=== PATIENT | male | born 1950 ===

== ENCOUNTER 2017-04-23 16:34 | Inpatient (IN) | payer MEDICARE ==
[~2017-04-23] VITALS: Ht 182.9 cm; Wt 66.0 kg
[~2017-04-23 16:34] MED LIST: ACET325T9 PO; ARIP30TA4 PO; ARIP5TAB13 PO; CHOL500016 PO; DIVA125C PO; DONE10TA61 PO; DULO60CA6 PO; LORA-434 PO; LORA10TA3 PO; MAG355OR12 PO; MAGN2400 PO; MEMA10TA PO; QUET100T4 PO; QUET50TA5 PO; SERT100T PO
[2017-04-23] MEDS ORDERED: MAGNESIUM HYDROXIDE 2,400 MG/30 ML ORAL.SUSP. PO PRN (17:15)
[2017-04-23] MEDS ORDERED: MAG HYDROX/AL HYDROX/SIMETH 30 ML ORAL.SUSP PO PRN ×2 (17:15→20:30)
[2017-04-23] MEDS ORDERED: METHYL SALICYLATE/MENTHOL TOPICAL OINTMENT 29GM TUBE. TP PRN (17:15)
[2017-04-23 17:49] VITALS: BP 115/69
[2017-04-23] MEDS ORDERED: QUEtiapine 25 MG TABLET. PO PRN (18:00)
[2017-04-23] MEDS ORDERED: LORazepam 0.5 MG TABLET PO PRN (18:00)
[2017-04-23] MEDS ORDERED: ASPI-630 PO (18:23)
[2017-04-23] MEDS ORDERED: QUET25TA5 PO (18:23)
[2017-04-23] MEDS ORDERED: BISA10SU2 RC (18:23)
[2017-04-23] MEDS ORDERED: TRIA10.8 NS (18:23)
[2017-04-23] MEDS ORDERED: LORA0.5T TP (18:23)
[2017-04-23] MEDS ORDERED: KETO10DR6 EACHEYE (18:23)
[2017-04-23] MEDS ORDERED: DIPH25CA58 PO (18:23)
[2017-04-23] MEDS ORDERED: CARB15DR98 OD (18:23)
--- NOTE | 2017-04-23 19:52 | PDOC ---
Exam Mj Demential Exam: Mj Note: Please also refer to the separate dictated note~for this date of service dictated separately.~Patient seen individually. Discussed the patient with Nursing staff reviewed the chart.~Reviewed interim history and current functioning. Reviewed vital signs,~Labs/ Radiology~and current medications noted below. Continue current treatment with the changes noted in the dictated addendum note Assessment: Vital Signs: Vital Signs Date Time Temp Pulse Resp B/P (MAP) Pulse Ox O2 Delivery O2 Flow Rate FiO2 04/23/17 17:49 98.0 73 16 115/69 (84) 100 Room Air Current Medications: Meds: Current Medications Acetaminophen (Tylenol) 650 mg PRN Q6HRS PRN PO PAIN / TEMP; Start 04/23/17 at 17:15 Multi-Ingredient Ointment (Analgesic [place]) 1 ana maría PRN QID PRN TP MUSCLE PAIN; Start 04/23/17 at 17:15 Al Hydroxide/Mg Hydroxide (Mylanta Plus Xs) 15 ml PRN AFTMEALHC PRN PO DYSPEPSIA; Start 04/23/17 at 17:15 Magnesium Hydroxide (Milk Of Magnesia) 2,400 mg PRN QHS PRN PO CONSTIPATION; Start 04/23/17 at 17:15 Aripiprazole (Abilify) 10 mg DAILY PO ; Start 04/24/17 at 09:00 Divalproex Sodium (Depakote Sprinkles) 500 mg TID PO ; Start 04/23/17 at 21:00 Donepezil HCl (Aricept) 10 mg DAILY PO ; Start 04/24/17 at 09:00 Duloxetine HCl (Cymbalta) 60 mg DAILY PO ; Start 04/24/17 at 09:00 Lorazepam (Ativan) 0.5 mg PRN Q6HRS PRN TP ANXIETY / AGITATION; Start 04/25/17 at 12:00 Lorazepam (Ativan) 0.5 mg PRN BID PRN PO ANXIETY / AGITATION; Start 04/23/17 at 18:00 Memantine (Namenda) 10 mg BID PO ; Start 04/23/17 at 21:00 Quetiapine Fumarate (SEROquel) 25 mg PRN DAILY PRN PO PSYCHOSIS; Start 04/23/17 at 18:00 Active Scripts Active Reported Nasacort (Triamcinolone Acetonide) 10.8 Ml [place] 2 Sprays NS DAILY Alaway (Ketotifen Fumarate) 10 Ml Drops 1 Drop EACHEYE BID Bisacodyl 10 Mg Supp.rect 10 Mg RC PRN DAILY PRN Benadryl (Diphenhydramine Hcl) 25 Mg Capsule 12.5 Mg PO PRN BID PRN Refresh Tears (Carboxymethylcellulose Sodium) 15 Ml Drops 1 Drop OD PRN QID PRN Lorazepam 0.5 Mg Tablet 0.5 Mg TP PRN Q6HRS PRN Seroquel (Quetiapine Fumarate) 25 Mg Tablet 25 Mg PO PRN DAILY PRN Aspirin 81 Mg Tab.chew 81 Mg PO DAILY Maalox Maximum Strength Susp (Mag Hydrox/Al Hydrox/Simeth) 355 Ml Oral.susp 15 Ml PO PRN AFTMEALHC PRN Milk Of Magnesia (Magnesium Hydroxide) 2,400 Mg/10 Ml Oral.susp 2,400 Mg PO PRN QHS PRN Tylenol (Acetaminophen) 325 Mg Tablet 650 Mg PO PRN Q6HRS PRN Cymbalta (Duloxetine Hcl) 60 Mg Capsule.dr 60 Mg PO DAILY DO NOT CRUSH OR CHEW Vitamin D3 (Cholecalciferol (Vitamin D3)) 5,000 Unit Tablet 4,000 Unit PO DAILY Abilify (Aripiprazole) 5 Mg Tablet 10 Mg PO DAILY Loratadine 10 Mg Tablet 10 Mg PO DAILY Ativan (Lorazepam) 1 Mg Tablet 0.5 Mg PO BID PRN Namenda (Memantine Hcl) 10 Mg Tablet 10 Mg PO BID Aricept (Donepezil Hcl) 10 Mg Tablet 10 Mg PO DAILY Depakote Sprinkle (Divalproex Sodium) 125 Mg Cap.sprink 500 Mg PO TID GIVE WITH FOOD. Diagnosis: Problems: (1) Anxiety disorder (2) Impulse control disorder (3) Dementia, vascular, with depression (4) Dementia, vascular, with delusions (5) Dementia in Alzheimer's disease with depression (6) Dementia in Alzheimer's disease with delusions ISACC WEAVER MD Apr 23, 2017 19:52
[2017-04-23] MEDS: DIVALPROEX 125 MG CAP.SPRINK PO SCH (20:21)
[2017-04-23] MEDS: MEMANTINE 10 MG TABLET. PO SCH (20:22)
[2017-04-23] MEDS ORDERED: BISACODYL 10 MG SUPP.RECT RC PRN (20:30)
[2017-04-23] MEDS ORDERED: NON FORMULARY ITEM (Magnesium Hydroxide (Milk Of Magnesia) 2,400 MG) PO PRN (20:30)
[2017-04-23] MEDS ORDERED: ACETAMINOPHEN 325 MG TABLET PO PRN (20:30)
[2017-04-23] MEDS ORDERED: POLYVINYL ALCOHOL/POVIDONE/PF OPHTH SOLUTION DROPERETTE. OD PRN (20:45)
[2017-04-23] MEDS: KETOTIFEN FUMARATE 0.025% OPHT SOLUTION BOTTLE. OU SCH (21:00)
--- NOTE | 2017-04-24 00:34 | HP ---
ADMIT DATE: 04/23/2017 PSYCHIATRIC ADMISSION HISTORY/EVALUATION This note covers elements not covered in my initial note of 04/23/2017. The patient was seen individually in the evening of 04/23/2017 for this evaluation. Discussed with nursing staff, reviewed the chart, reviewed current past records. I have also talked to the Emergency Room physician at [facility] after the patient was referred to us for inpatient psychiatric stabilization from the Emergency Room at [facility]. He talked to the nursing staff several times earlier in the day to coordinate the referral from the Emergency Room. IDENTIFYING DATA: The patient is a 67-year-old male with fairly significant and advanced dementia, Alzheimer's, vascular with delusion, depression, behavioral disturbance. He has been residing at the [facility] getting increasingly aggressive, charging at people, disruptive, psychotic. He has failed outpatient psychiatric interventions, was sent to the [facility] Emergency Room and then referred to us for psychiatric stabilization. HISTORY OF PRESENT ILLNESS: The patient has a history of dementia, Alzheimer's vascular type. He has been residing at the [facility], more recently getting increasingly psychotic, agitated, aggressive, disruptive, charging at people. He has had sleep and appetite changes. No clear suicidal or homicidal ideation. No clear history of bipolar disorder. PAST PSYCHIATRIC HISTORY: As above. MEDICAL HISTORY: Hypovitaminosis D. CURRENT PSYCHOTROPICS: Seroquel 25 mg p.o. p.r.n. psychosis, Namenda 10 mg twice a day, Ativan topical p.r.n. and oral 0.5 mg b.i.d. p.r.n., Cymbalta 60 mg a day, Aricept 10 mg a day, Depakote Sprinkles 500 mg 3 times a day, Abilify 10 mg a day. CODE STATUS: DNR. DRUG ALLERGIES: Negative. FAMILY HISTORY: Noncontributory. SOCIAL HISTORY: No history of alcohol, drug abuse, physical, sexual or elder abuse history is noted. He is not known to be a perpetrator. MENTAL STATUS EXAMINATION: The patient was seen individually in the evening of 04/23/2017. He is oriented to himself, not very interactive at all, having to be fed by the nursing staff and still unable to follow through appropriately, not verbal at all. Insight, judgment, recent and remote memory, attention, concentration, fund of knowledge poor, consistent with his diagnosis. LABORATORY DATA: Reviewed. IMPRESSION: Major neurocognitive disorder, Alzheimer, vascular with depression, delusion, behavioral disturbance; anxiety disorder, unspecified; impulse control disorder, unspecified. Rest diagnoses unchanged from admission as noted above. PLAN: Admit to the geropsychiatry unit at [facility]. I will see the patient daily individually from a psychiatric standpoint. Medical followup per Dr. Stephenson/Dr. Hayes. Continue the patient on his current psychotropics. Consider reducing Abilify, checking a valproic acid level will adjust to reach a therapeutic level. We will make further adjustments after baseline assessment. MAN Mary WEAVER MD DR: MARIAM/piter JOB#: [id number] / [id number]
--- NOTE | 2017-04-24 01:55 | ACF ---
Admission Criteria Forms PSYCHIATRIC DISORDERS Clinical Indications for Inpatient Care (Place 'X' for any and all applicable criteria): Ongoing inpatient care may be needed for 1 or more of the following(1)(2)(3)(4)( 6)(7)(8): [ ]I. Danger to self or others not manageable at lower level of care. [ ]II. Grave disability (eg, inability to perform self care necessary at lower level of care) [ ]III. Agitation or inappropriate behavior interfering with care for primary condition (eg, attempting to discontinue lines or drains prematurely, unable to cooperate with respiratory care) [x]IV. Severe disability or disorder indicated by ALL of the following: [x]a) Severe behavioral health disorder-related symptoms or condition indicated by 1 or more of the following: [ ]i) Severe problem with cognition, memory, judgment, or impulse control [x]ii) Severe clinical manifestations (eg, hallucinations, delusions, other acute psychotic symptoms, justus, extreme agitation or anxiety) [x]b) Patient management at lower level of care is not feasible until acute intervention or modification is initiated. Extended stay beyond goal length of stay for the primary condition may be needed untilALLof the following are present(1)(2)(3)(4)(722)(23): [ ]a) Danger to self or others is absent or manageable at lower level of care [ ]b) Behavior crisis management, including physical or chemical restraints, is required and is not available at a lower level of care. [ ]c) Behavioral symptoms (e.g., agitation, somnolence, inappropriate behavior) are present, and are not manageable at a lower level of care. [ ]d) Patient cannot understand follow-up treatment and crisis plan. [ ]e) Provider and supports are sufficiently available at lower level of care. [ ]f) Patient can participate (e.g., verify absence of plan for harm) and is in needed of monitoring. The original [facility] content created by [employer] has been revised. The portions of the content which have been revised are identified through the use of italic text, and [employer] has neither reviewed nor approved the modified material. All other unmodified content is copyright [facility] [employer]. Please see references footnoted in the original [facility] edition 2015 Admission Criteria Met?: Yes NIEVES BRADY Apr 24, 2017 01:55
[2017-04-24 06:53] VITALS: BP 113/74
[2017-04-24] MEDS: FLUTICASONE 50MCG/NASAL SPRAY 16GM BOTTLE. NS SCH (08:44)
[2017-04-24] MEDS: KETOTIFEN FUMARATE 0.025% OPHT SOLUTION BOTTLE. OU SCH ×2 (08:44→21:00)
[2017-04-24] MEDS: MEMANTINE 10 MG TABLET. PO SCH ×2 (08:44→20:07)
[2017-04-24] MEDS: DIVALPROEX 125 MG CAP.SPRINK PO SCH ×3 (08:44→20:07)
[2017-04-24] MEDS: CHOLECALCIFEROL (VITAMIN D3) 1,000 UNIT TABLET PO SCH (08:44)
[2017-04-24] MEDS: DULoxetine HCL 60 MG CAPSULE.DR PO SCH (08:44)
[2017-04-24] MEDS: DONEPEZIL HCL 10 MG TABLET PO SCH (08:44)
[2017-04-24] MEDS: ASPIRIN 81 MG TAB.CHEW PO SCH (08:44)
[2017-04-24] MEDS ORDERED: ARIPiprazole 10 MG TABLET PO SCH (09:00)
[2017-04-24 09:55] LABS: ALBUMIN 3.8 g/dL (3.4-5.0); CALCIUM 9.2 mg/dL (8.5-10.1); CREATININE 0.8 mg/dL (0.7-1.3); POTASSIUM 3.8 mmol/L (3.5-5.1); TOTAL BILIRUBIN 0.6 mg/dL (0.2-1.0); TOTAL PROTEIN 7.6 g/dL (6.4-8.2); VAL ACID 85 mcg/mL (50-100)
[2017-04-24 10:09] LABS: BASO % 1 % (0-3); EOS % 1 % (0-3); HEMATOCRIT 47.6 % (39.0-53.0); HEMOGLOBIN 16.3 g/dL (13.0-17.5); LYMPH # 1.4 x10^3/uL (1.0-4.8); LYMPH % 27 % (24-48); MEAN CORPUSCULAR HEMOGLOBIN 33 pg (25-35); MEAN CORPUSCULAR HGB CONC 34 g/dL (31-37); MEAN CORPUSCULAR VOLUME 96 fL (79-100); MONO # 0.3 x10^3/uL (0.0-1.1); MONO % 6 % (0-9); NEUT # 3.4 x10^3uL (1.8-7.7); NEUT % 66 % (31-73); PLATELET COUNT 274 x10^3/uL (140-400); RED BLOOD COUNT 4.96 x10^6/uL (4.30-5.70); RED CELL DISTRIBUTION WIDTH 13.5 % (11.5-14.5); WHITE BLOOD COUNT 5.1 x10^3/uL (4.0-11.0)
[2017-04-24 15:21] LABS: THYROID STIM HORMONE (TSH) 2.723 uIU/mL (0.358-3.740)
[2017-04-24 16:32] VITALS: BP 97/57
[2017-04-24 19:09] LABS: THYROXINE 4.1 ug/dL (4.5-12.0)
--- NOTE | 2017-04-24 19:54 | PDOC ---
Exam Mj Demential Exam: Mj Note: Please also refer to the separate dictated note~for this date of service dictated separately.~Patient seen individually. Discussed the patient with Nursing staff reviewed the chart.~Reviewed interim history and current functioning. Reviewed vital signs,~Labs/ Radiology~and current medications noted below. Continue current treatment with the changes noted in the dictated addendum note Assessment: Vital Signs: Vital Signs Date Time Temp Pulse Resp B/P (MAP) Pulse Ox O2 Delivery O2 Flow Rate FiO2 04/24/17 16:32 97.6 80 18 97/57 (70) 96 Room Air I&O Intake and Output 04/24/17 07:00 Intake Total 120 ml Balance 120 ml Intake Oral 120 ml # Voids 2 Labs: Laboratory Tests Test 04/24/17 09:32 White Blood Count 5.1 x10^3/uL (4.0-11.0) Red Blood Count 4.96 x10^6/uL (4.30-5.70) Hemoglobin 16.3 g/dL (13.0-17.5) Hematocrit 47.6 % (39.0-53.0) Mean Corpuscular Volume 96 fL (79-100) Mean Corpuscular Hemoglobin 33 pg (25-35) Mean Corpuscular Hemoglobin Concent 34 g/dL (31-37) Red Cell Distribution Width 13.5 % (11.5-14.5) Platelet Count 274 x10^3/uL (140-400) Neutrophils (%) (Auto) 66 % (31-73) Lymphocytes (%) (Auto) 27 % (24-48) Monocytes (%) (Auto) 6 % (0-9) Eosinophils (%) (Auto) 1 % (0-3) Basophils (%) (Auto) 1 % (0-3) Neutrophils # (Auto) 3.4 x10^3uL (1.8-7.7) Lymphocytes # (Auto) 1.4 x10^3/uL (1.0-4.8) Monocytes # (Auto) 0.3 x10^3/uL (0.0-1.1) Eosinophils # (Auto) 0.0 x10^3/uL (0.0-0.7) Basophils # (Auto) 0.0 x10^3/uL (0.0-0.2) Sodium Level 138 mmol/L (136-145) Potassium Level 3.8 mmol/L (3.5-5.1) Chloride Level 99 mmol/L (98-107) Carbon Dioxide Level 34 mmol/L (21-32) H Anion Gap 5 (6-14) L Blood Urea Nitrogen 7 mg/dL (8-26) L Creatinine 0.8 mg/dL (0.7-1.3) Estimated GFR (Cockcroft-Gault) 97.0 BUN/Creatinine Ratio 9 (6-20) Glucose Level 70 mg/dL (70-99) Calcium Level 9.2 mg/dL (8.5-10.1) Magnesium Level 2.0 mg/dL (1.8-2.4) Iron Level 101 ug/dL (65-175) Total Iron Binding Capacity 325 ug/dL (250-450) Iron Saturation 31 % (15-34) Total Bilirubin 0.6 mg/dL (0.2-1.0) Aspartate Amino Transferase (AST) 13 U/L (15-37) L Alanine Aminotransferase (ALT) 14 U/L (16-63) L Alkaline Phosphatase 67 U/L (46-116) Total Protein 7.6 g/dL (6.4-8.2) Albumin 3.8 g/dL (3.4-5.0) Albumin/Globulin Ratio 1.0 (1.0-1.7) Triglycerides Level 73 mg/dL (0-150) Cholesterol Level 249 mg/dL (0-200) H LDL Cholesterol, Calculated 155 mg/dL (0-100) H VLDL Cholesterol, Calculated 14 mg/dL (0-40) Non-HDL Cholesterol Calculated 169 mg/dL (0-129) H HDL Cholesterol 80 mg/dL (40-60) H Cholesterol/HDL Ratio 3.0 Vitamin B12 Level 428 pg/mL (247-911) 25-Hydroxy Vitamin D Total Pending Thyroid Stimulating Hormone (TSH) 2.723 uIU/mL (0.358-3.740) Thyroxine (T4) 4.1 ug/dL (4.5-12.0) L Total Triiodothyronine (TT3) 71 ng/dL (71-180) Valproic Acid Level 85 mcg/mL (50-100) Valproic Acid Last Dose Date 04/23/17 Valproic Acid Last Dose Time 2100 Current Medications: Meds: Current Medications Acetaminophen (Tylenol) 650 mg PRN Q6HRS PRN PO PAIN / TEMP; Start 04/23/17 at 17:15 Multi-Ingredient Ointment (Analgesic [place]) 1 ana maría PRN QID PRN TP MUSCLE PAIN; Start 04/23/17 at 17:15 Al Hydroxide/Mg Hydroxide (Mylanta Plus Xs) 15 ml PRN AFTMEALHC PRN PO DYSPEPSIA; Start 04/23/17 at 17:15 Magnesium Hydroxide (Milk Of Magnesia) 2,400 mg PRN QHS PRN PO CONSTIPATION; Start 04/23/17 at 17:15 Aripiprazole (Abilify) 10 mg DAILY PO Last administered on 04/24/17 08:44; Start 04/24/17 at 09:00; Stop 04/24/17 at 19:02; Status DC Divalproex Sodium (Depakote Sprinkles) 500 mg TID PO Last administered on 13:50; Start 04/23/17 at 21:00 Donepezil HCl (Aricept) 10 mg DAILY PO Last administered on 04/24/17 08:44; Start 04/24/17 at 09:00 Duloxetine HCl (Cymbalta) 60 mg DAILY PO Last administered on 04/24/17 08:44; Start 04/24/17 at 09:00 Lorazepam (Ativan) 0.5 mg PRN Q6HRS PRN TP ANXIETY / AGITATION; Start 04/25/17 at 12:00 Lorazepam (Ativan) 0.5 mg PRN BID PRN PO ANXIETY / AGITATION; Start 04/23/17 at 18:00 Memantine (Namenda) 10 mg BID PO Last administered on 04/24/17 08:44; Start at 21:00 Quetiapine Fumarate (SEROquel) 25 mg PRN DAILY PRN PO PSYCHOSIS; Start 04/23/17 at 18:00 Acetaminophen (Tylenol) 650 mg PRN Q6HRS PRN PO PAIN / TEMP; Start 04/23/17 at 20:30; Status UNV Aspirin (Children'S Aspirin) 81 mg DAILY PO Last administered on 04/24/17 08: 44; Start 04/24/17 at 09:00 Bisacodyl (Dulcolax Supp) 10 mg PRN DAILY PRN RC CONSTIPATION; Start 04/23/17 at 20:30 Ketotifen Fumarate (Zaditor) 1 drop BID OU Last administered on 04/24/17 08:44 ; Start 04/23/17 at 21:00 Al Hydroxide/Mg Hydroxide (Mylanta Plus Xs) 15 ml PRN AFTMEALHC PRN PO DYSPEPSIA; Start 04/23/17 at 20:30; Status UNV Artificial Tears (Refresh Classic) 1 drop PRN QID PRN OD DRY EYE; Start at 20:45 Vitamin D (Vitamin D3) 4,000 unit DAILY PO Last administered on 04/24/17 08:44 ; Start 04/24/17 at 09:00 Non-Formulary Medication 2,400 mg PRN QHS PRN PO CONSTIPATION; Start 04/23/17 at 20:30; Status UNV Fluticasone Propionate (Flonase) 2 spray DAILY NS ; Start 04/24/17 at 09:00 Olanzapine (ZyPREXA ZYDIS) 2.5 mg PRN Q2HR PRN PO PSYCHOSIS Last administered on 04/24/17 08:44; Start 04/24/17 at 08:00 Carbidopa/Levodopa (Sinemet Cr) 1 tab.sa TID PO ; Start 04/24/17 at 21:00 Active Scripts Active Reported Nasacort (Triamcinolone Acetonide) 10.8 Ml [place] 2 Sprays NS DAILY Alaway (Ketotifen Fumarate) 10 Ml Drops 1 Drop EACHEYE BID Bisacodyl 10 Mg Supp.rect 10 Mg RC PRN DAILY PRN Benadryl (Diphenhydramine Hcl) 25 Mg Capsule 12.5 Mg PO PRN BID PRN Refresh Tears (Carboxymethylcellulose Sodium) 15 Ml Drops 1 Drop OD PRN QID PRN Lorazepam 0.5 Mg Tablet 0.5 Mg TP PRN Q6HRS PRN Seroquel (Quetiapine Fumarate) 25 Mg Tablet 25 Mg PO PRN DAILY PRN Aspirin 81 Mg Tab.chew 81 Mg PO DAILY Maalox Maximum Strength Susp (Mag Hydrox/Al Hydrox/Simeth) 355 Ml Oral.susp 15 Ml PO PRN AFTMEALHC PRN Milk Of Magnesia (Magnesium Hydroxide) 2,400 Mg/10 Ml Oral.susp 2,400 Mg PO PRN QHS PRN Tylenol (Acetaminophen) 325 Mg Tablet 650 Mg PO PRN Q6HRS PRN Cymbalta (Duloxetine Hcl) 60 Mg Capsule.dr 60 Mg PO DAILY DO NOT CRUSH OR CHEW Vitamin D3 (Cholecalciferol (Vitamin D3)) 5,000 Unit Tablet 4,000 Unit PO DAILY Abilify (Aripiprazole) 5 Mg Tablet 10 Mg PO DAILY Loratadine 10 Mg Tablet 10 Mg PO DAILY Ativan (Lorazepam) 1 Mg Tablet 0.5 Mg PO BID PRN Namenda (Memantine Hcl) 10 Mg Tablet 10 Mg PO BID Aricept (Donepezil Hcl) 10 Mg Tablet 10 Mg PO DAILY Depakote Sprinkle (Divalproex Sodium) 125 Mg Cap.sprink 500 Mg PO TID GIVE WITH FOOD. Diagnosis: Problems: (1) Anxiety disorder (2) Impulse control disorder (3) Dementia, vascular, with depression (4) Dementia, vascular, with delusions (5) Dementia in Alzheimer's disease with depression (6) Dementia in Alzheimer's disease with delusions ISACC WEAVER MD Apr 24, 2017 19:54
[2017-04-24] MEDS: CARBIDOPA/LEVODOPA CR 25/100MG TABLET.SA PO SCH (20:07)
[2017-04-25 05:53] VITALS: BP 101/64
[2017-04-25] MEDS: FLUTICASONE 50MCG/NASAL SPRAY 16GM BOTTLE. NS SCH (07:28)
[2017-04-25] MEDS: CHOLECALCIFEROL (VITAMIN D3) 1,000 UNIT TABLET PO SCH (08:09)
--- NOTE | 2017-04-25 08:11 | HP ---
ADMIT DATE: 04/23/2017 REASON FOR ADMISSION TO SENIOR BEHAVIORAL UNIT: This is a 67-year-old male who had a previous admission to the [facility] Behavioral Unit 08/2016 for combativeness and problems managing him at home. From that admission, he was admitted to [facility]. He has been there since 09/09/2016. He is admitted this time for being aggressive and charging people. PAST MEDICAL HISTORY: Alzheimer's disease and depression. He was admitted in 01/[address] [facility] with pneumonia. ALLERGIES: None. PERTINENT MEDICAL CHANGES: Abilify had been increased on 04/21/2017. His medications reviewed and are available on the MAR, stated the 04/21/2017 Abilify was increased. FAMILY HISTORY: The patient is unable to verbalize. SOCIAL HISTORY: As stated previously lived at home with his up to 08/2016. Tobacco history and alcohol history is not known. FUNCTIONALITY: He does walk, but is a significant fall risk. Incontinence: Yes. Must be assisted with eating. REVIEW OF SYSTEMS: Unable to tell me. OBJECTIVE: VITAL SIGNS: Blood pressure 97/57, pulse 80, respirations 18, temperature 97.6, pulse ox 96% on room air. GENERAL: The patient was seen in the dining room. He has a vice light industrial on [employer] as well as the nurse in an nonaggressive manner. He is being fed by the nurse. HEENT: His eyes are clear. Swallowing seems to be intact. He is able to swallow liquids without difficulty. NECK: Supple. LUNGS: Clear. CARDIOVASCULAR: Regular rhythm and rate. EXTREMITIES: Without edema. NEUROLOGIC: He definitely has a tremor. His gait is very unsteady, could not take him through the cranial nerves. Also noted that in August his weight was 159, now it is 147.5. LABORATORY DATA: Normal CBC. Chemistry profile has hypercholesterolemia fairly significant. Thyroid normal. Did not have a UA, B12 was 428, normal iron. ASSESSMENT: 1. Severe depression with behavior disturbance. 2. Alzheimer's with behavior disturbance. 3. Hyperlipidemia. 4. A 12-pound weight loss since 08/2016. PLAN: Assist with this patient's PT, OT and start him on something for his hypercholesterolemia. ROXANNE M. GURVINDER, DO DR: Karol JOB#: [id number] / [id number]
[2017-04-25] MEDS: DULoxetine HCL 60 MG CAPSULE.DR PO SCH (08:15)
[2017-04-25] MEDS: MEMANTINE 10 MG TABLET. PO SCH ×2 (08:25→19:54)
[2017-04-25] MEDS: DONEPEZIL HCL 10 MG TABLET PO SCH (08:25)
[2017-04-25] MEDS: DIVALPROEX 125 MG CAP.SPRINK PO SCH ×3 (08:25→19:54)
[2017-04-25] MEDS: ASPIRIN 81 MG TAB.CHEW PO SCH (08:25)
[2017-04-25] MEDS: CARBIDOPA/LEVODOPA CR 25/100MG TABLET.SA PO SCH ×3 (08:26→19:54)
[2017-04-25] MEDS: KETOTIFEN FUMARATE 0.025% OPHT SOLUTION BOTTLE. OU SCH ×2 (12:44→19:56)
--- NOTE | 2017-04-25 15:05 | CONS ---
DATE OF CONSULTATION: 04/24/2017 REFERRING PHYSICIAN: Dr. Arana. REASON FOR CONSULTATION: Severe tremor of the arms and hands. HISTORY OF PRESENT ILLNESS: This is a 67-year-old right-handed male who was admitted on 04/23/2017 on account of worsening of aggressive behavior at the half-way. Neuro consult was requested because the patient has had constant tremor of the upper extremities for several months along with stiffness. The patient has had advanced dementia probably of Alzheimer's type and he is unable to provide any information. He does not follow question or information. The patient was initially admitted to Geropsychiatric Unit here at [facility] in August 2016 on account of severe agitated and aggressive behavior at home. Therefore, he was re-placed to half-way at [facility] and he has been there since that time. PAST MEDICAL HISTORY: Significant for dementia probably of Alzheimer's type, depression, vitamin D deficiency, possible anxiety, and hyperlipidemia. SOCIAL HISTORY: The patient is a half-way resident at [facility]. There is no reported history of smoking, alcohol drinking, or illicit drug use. FAMILY HISTORY: Nonobtainable. CURRENT MEDICATIONS: Lipitor 20 mg at bedtime, lorazepam 0.5 mg q. 6 hours p.r.n. for agitation. Flonase 2 nasal spray, vitamin D3 4000 units daily, aspirin 81 mg daily, Cymbalta 60 mg daily, Aricept 10 mg daily, Namenda 10 mg b.i.d., olanzapine 2.5 mg every 2 hours p.r.n. for agitation, Depakote 500 mg t.i.d., Seroquel 25 mg daily p.r.n. for agitation, lorazepam 0.5 mg b.i.d. p.r.n. for agitation, Tylenol p.r.n. ALLERGIES: No known drug allergies. REVIEW OF SYSTEMS: As mentioned above in the history of present illness. A 10-point review of system was performed and as mentioned above in the history of present illness, otherwise nonobtainable. PHYSICAL EXAMINATION: GENERAL: Well-developed, well-nourished male, not in acute distress. VITAL SIGNS: Blood pressure 130/74, respiratory rate is 16, pulse is 71 and regular, temperature is 98, oxygen saturation 98% on room air. HEENT: Normocephalic, atraumatic, otherwise unremarkable. NECK: Stiff, but negative for carotid bruit, lymphadenopathy or JVD. LUNGS: Clear to A and P. CARDIOVASCULAR: Regular rate and rhythm, normal S1, S2. No S3, S4 or murmur. ABDOMEN: Soft. Bowel sounds positive. EXTREMITIES: Negative for cyanosis, clubbing or pitting edema. NEUROLOGIC: 1. Mental status: The patient is awake, but does not follow any commands. He does not communicate. Therefore, further evaluation of his mental status is very limited at this time. 2. Cranial nerves: The pupils are reactive to light and accommodation. The extraocular movements are intact. There is no nystagmus. There is no facial motor or sensory deficit. Hearing appears to be intact. The palate is elevated symmetrically. Sternocleidomastoid muscles are powerful bilaterally. Motor examination revealed no focal muscle bulk was seen. The tone is normal. The strength is 4/5. However, the patient is not fully cooperative with the manual muscle examination. The patient has had persistent resting tremor of the upper and lower extremities. He has a mask face as well. Sensory examination his extremities to noxious stimuli. Deep tendon reflexes are symmetric and hypoactive with absent Achilles responses. Gait: The stance is steady. The patient walks independently, but he does not swing his arms. LABORATORY DATA: CBC revealed white blood cells of , hemoglobin 16.3, hematocrit 47.6, platelet count 274,000. Chemistries revealed a sodium of 138, potassium of 3.8, chloride 99, CO2 34, BUN 7, creatinine 0.8, glucose is 70, calcium is 9.2. Liver enzymes are low. Lipid profile revealed high cholesterol at 249 and high LDL at 155, high HDL at 80. Thyroid profile is normal TSH with low T4 at 4.1. Valproic acid today is 85. IMPRESSION: 1. Severe resting tremor of the upper extremities with stiffness of the lower extremities and masked face may represent symptoms of parkinsonism and possible Parkinson's disease. 2. Dementia of Alzheimer's type. 3. Hyperlipidemia. 4. Rule out depressions and anxiety. RECOMMENDATIONS: 1. We will start the patient on carbidopa/levodopa at 25/100 mg t.i.d., and adjust the medications according to his clinical status changes. 2. Continue with current management initiated by Dr. Arana and Dr. Stephenson. M Nikki MURPHY MD DR: RICHA/piter JOB#: [id number] / [id number]
[2017-04-25 16:12] VITALS: BP 94/50
[2017-04-25 19:27] VITALS: BP 136/59
[2017-04-25] MEDS: ATORVASTATIN CALCIUM 20 MG TABLET PO SCH (19:55)
--- NOTE | 2017-04-25 20:02 | PDOC ---
Exam Mj Demential Exam: Mj Note: Please also refer to the separate dictated note~for this date of service dictated separately.~Patient seen individually. Discussed the patient with Nursing staff reviewed the chart.~Reviewed interim history and current functioning. Reviewed vital signs,~Labs/ Radiology~and current medications noted below. Continue current treatment with the changes noted in the dictated addendum note Assessment: Vital Signs: Vital Signs Date Time Temp Pulse Resp B/P (MAP) Pulse Ox O2 Delivery O2 Flow Rate FiO2 04/25/17 19:27 136/59 (84) 04/25/17 16:12 98.4 62 16 98 04/25/17 05:53 Room Air I&O Intake and Output 04/25/17 07:00 Intake Total 600 ml Balance 600 ml Intake Oral 600 ml # Bowel Movements 1 Current Medications: Meds: Current Medications Acetaminophen (Tylenol) 650 mg PRN Q6HRS PRN PO PAIN / TEMP; Start 04/23/17 at 17:15 Multi-Ingredient Ointment (Analgesic [place]) 1 ana maría PRN QID PRN TP MUSCLE PAIN; Start 04/23/17 at 17:15 Al Hydroxide/Mg Hydroxide (Mylanta Plus Xs) 15 ml PRN AFTMEALHC PRN PO DYSPEPSIA; Start 04/23/17 at 17:15 Magnesium Hydroxide (Milk Of Magnesia) 2,400 mg PRN QHS PRN PO CONSTIPATION; Start 04/23/17 at 17:15 Aripiprazole (Abilify) 10 mg DAILY PO Last administered on 04/24/17 08:44; Start 04/24/17 at 09:00; Stop 04/24/17 at 19:02; Status DC Divalproex Sodium (Depakote Sprinkles) 500 mg TID PO Last administered on 19:54; Start 04/23/17 at 21:00 Donepezil HCl (Aricept) 10 mg DAILY PO Last administered on 04/25/17 08:25; Start 04/24/17 at 09:00 Duloxetine HCl (Cymbalta) 60 mg DAILY PO Last administered on 04/25/17 08:15; Start 04/24/17 at 09:00 Lorazepam (Ativan) 0.5 mg PRN Q6HRS PRN TP ANXIETY / AGITATION; Start 04/25/17 at 12:00 Lorazepam (Ativan) 0.5 mg PRN BID PRN PO ANXIETY / AGITATION; Start 04/23/17 at 18:00 Memantine (Namenda) 10 mg BID PO Last administered on 04/25/17 19:54; Start at 21:00 Quetiapine Fumarate (SEROquel) 25 mg PRN DAILY PRN PO PSYCHOSIS; Start 04/23/17 at 18:00 Acetaminophen (Tylenol) 650 mg PRN Q6HRS PRN PO PAIN / TEMP; Start 04/23/17 at 20:30; Status UNV Aspirin (Children'S Aspirin) 81 mg DAILY PO Last administered on 04/25/17 08: 25; Start 04/24/17 at 09:00 Bisacodyl (Dulcolax Supp) 10 mg PRN DAILY PRN RC CONSTIPATION; Start 04/23/17 at 20:30 Ketotifen Fumarate (Zaditor) 1 drop BID OU Last administered on 04/25/17 19:56 ; Start 04/23/17 at 21:00 Al Hydroxide/Mg Hydroxide (Mylanta Plus Xs) 15 ml PRN AFTMEALHC PRN PO DYSPEPSIA; Start 04/23/17 at 20:30; Status UNV Artificial Tears (Refresh Classic) 1 drop PRN QID PRN OD DRY EYE; Start at 20:45 Vitamin D (Vitamin D3) 4,000 unit DAILY PO Last administered on 04/24/17 08:44 ; Start 04/24/17 at 09:00 Non-Formulary Medication 2,400 mg PRN QHS PRN PO CONSTIPATION; Start 04/23/17 at 20:30; Status UNV Fluticasone Propionate (Flonase) 2 spray DAILY NS Last administered on 07:28; Start 04/24/17 at 09:00 Olanzapine (ZyPREXA ZYDIS) 2.5 mg PRN Q2HR PRN PO PSYCHOSIS Last administered on 04/25/17 12:38; Start 04/24/17 at 08:00 Carbidopa/Levodopa (Sinemet Cr) 1 tab.sa TID PO Last administered on 04/25/17 19:54; Start 04/24/17 at 21:00 Atorvastatin Calcium (Lipitor) 20 mg QHS PO Last administered on 04/25/17t 19: 55; Start 04/25/17 at 21:00 Quetiapine Fumarate (SEROquel) 12.5 mg BID92 PO ; Start 04/26/17 at 09:00 Active Scripts Active Reported Nasacort (Triamcinolone Acetonide) 10.8 Ml [place] 2 Sprays NS DAILY [place] (Ketotifen Fumarate) 10 Ml Drops 1 Drop EACHEYE BID Bisacodyl 10 Mg Supp.rect 10 Mg RC PRN DAILY PRN Benadryl (Diphenhydramine Hcl) 25 Mg Capsule 12.5 Mg PO PRN BID PRN Refresh Tears (Carboxymethylcellulose Sodium) 15 Ml Drops 1 Drop OD PRN QID PRN Lorazepam 0.5 Mg Tablet 0.5 Mg TP PRN Q6HRS PRN Seroquel (Quetiapine Fumarate) 25 Mg Tablet 25 Mg PO PRN DAILY PRN Aspirin 81 Mg Tab.chew 81 Mg PO DAILY Maalox Maximum Strength Susp (Mag Hydrox/Al Hydrox/Simeth) 355 Ml Oral.susp 15 Ml PO PRN AFTMEALHC PRN Milk Of Magnesia (Magnesium Hydroxide) 2,400 Mg/10 Ml Oral.susp 2,400 Mg PO PRN QHS PRN Tylenol (Acetaminophen) 325 Mg Tablet 650 Mg PO PRN Q6HRS PRN Cymbalta (Duloxetine Hcl) 60 Mg Capsule.dr 60 Mg PO DAILY DO NOT CRUSH OR CHEW Vitamin D3 (Cholecalciferol (Vitamin D3)) 5,000 Unit Tablet 4,000 Unit PO DAILY Abilify (Aripiprazole) 5 Mg Tablet 10 Mg PO DAILY Loratadine 10 Mg Tablet 10 Mg PO DAILY Ativan (Lorazepam) 1 Mg Tablet 0.5 Mg PO BID PRN Namenda (Memantine Hcl) 10 Mg Tablet 10 Mg PO BID Aricept (Donepezil Hcl) 10 Mg Tablet 10 Mg PO DAILY Depakote Sprinkle (Divalproex Sodium) 125 Mg Cap.sprink 500 Mg PO TID GIVE WITH FOOD. Diagnosis: Problems: (1) Anxiety disorder (2) Impulse control disorder (3) Dementia, vascular, with depression (4) Dementia, vascular, with delusions (5) Dementia in Alzheimer's disease with depression (6) Dementia in Alzheimer's disease with delusions ISACC WEAVER MD Apr 25, 2017 20:01
--- NOTE | 2017-04-25 22:15 | PN ---
DATE: 04/24/2017 PSYCHIATRIC PROGRESS NOTE This is a late entry for 04/24/2017, covers elements not covered in my initial note. SUBJECTIVE: The patient was staffed at treatment team meeting with the entire team morning of 04/24/2017. I met with him evening of 04/24/2017. Valproic acid level is 85. The patient was combative with labs, restless, anxious, nonverbal. He has parkinsonian expression, does have a diagnosis of Parkinson's, and we stopped the Abilify. He was aggressive in the evening. REVIEW OF SYSTEMS: No eye, ENT, CV, , pulmonary system symptoms on review. Reliability poor. MENTAL STATUS EXAM: Oriented to himself. Insight, judgment, recent and remote memory, attention, concentration, fund of knowledge poor, consistent with his diagnosis. LABORATORY DATA: Reviewed. DIAGNOSIS: Mentioned in my initial note. PLAN: Abilify was stopped. Continue Cymbalta, Depakote, Aricept, Namenda, Ativan p.r.n., Seroquel p.r.n. Adjust further as clinically indicated. MAN Mary WEAVER MD DR: MARIAM/piter JOB#: [id number] / [id number]
[2017-04-26 06:29] VITALS: BP 120/70
[2017-04-26] MEDS: FLUTICASONE 50MCG/NASAL SPRAY 16GM BOTTLE. NS SCH (08:36)
[2017-04-26] MEDS: KETOTIFEN FUMARATE 0.025% OPHT SOLUTION BOTTLE. OU SCH ×2 (08:37→20:43)
[2017-04-26] MEDS: DULoxetine HCL 60 MG CAPSULE.DR PO SCH (08:37)
[2017-04-26] MEDS: ASPIRIN 81 MG TAB.CHEW PO SCH (08:37)
[2017-04-26] MEDS: DIVALPROEX 125 MG CAP.SPRINK PO SCH ×3 (08:37→20:41)
[2017-04-26] MEDS: MEMANTINE 10 MG TABLET. PO SCH ×2 (08:37→20:41)
[2017-04-26] MEDS: DONEPEZIL HCL 10 MG TABLET PO SCH (08:37)
[2017-04-26] MEDS: CARBIDOPA/LEVODOPA CR 25/100MG TABLET.SA PO SCH ×3 (08:38→20:41)
[2017-04-26] MEDS: QUEtiapine 25 MG TABLET. PO SCH ×2 (08:38→14:05)
[2017-04-26] MEDS: CHOLECALCIFEROL (VITAMIN D3) 1,000 UNIT TABLET PO SCH (08:39)
[2017-04-26 16:34] VITALS: BP 123/80
--- NOTE | 2017-04-26 20:33 | PN ---
DATE: 04/25/2017 PSYCHIATRIC PROGRESS NOTE This is a late entry for 04/25/2017, covers elements not covered in my initial note. SUBJECTIVE: I met with the patient evening of 04/25/2017. Per nursing report, previous evening, the patient was agitated, aggressive, combative and again somewhat combative morning of 04/25/2017. Received Zyprexa at 12:38 p.m., then did much better the rest of the day. REVIEW OF SYSTEMS: Ambulation impaired, unsteady gait. No CV, , pulmonary, eye, ENT system symptoms on review. Reliability poor. MENTAL STATUS EXAM: Oriented to himself. Insight, judgment, recent and remote memory, attention, concentration, fund of knowledge poor, consistent with his diagnosis. LABORATORY DATA: Reviewed. IMPRESSION: Unchanged from initial note. PLAN: Continue current psychotropics including Sinemet for Parkinson's. Start Seroquel 12.5 mg at 9 a.m. and 2 p.m. Maintain the rest unchanged including Aricept, Cymbalta, Depakote, Namenda, along with Ativan p.r.n., Seroquel p.r.n. Reviewed drug interactions in detail. Risk benefit ratio favors no further change at this time. ISACC WEAVER MD DR: MARIAM/piter JOB#: [id number] / [id number]
[2017-04-26] MEDS: ATORVASTATIN CALCIUM 20 MG TABLET PO SCH (20:41)
[2017-04-26] MEDS: BENZTROPINE MESYLATE 0.5 MG TABLET PO SCH (20:59)
--- NOTE | 2017-04-26 23:20 | PDOC ---
Exam Mj Demential Exam: Mj Note: Please also refer to the separate dictated note~for this date of service dictated separately.~Patient seen individually. Discussed the patient with Nursing staff reviewed the chart.~Reviewed interim history and current functioning. Reviewed vital signs,~Labs/ Radiology~and current medications noted below. Continue current treatment with the changes noted in the dictated addendum note Assessment: Vital Signs: Vital Signs Date Time Temp Pulse Resp B/P (MAP) Pulse Ox O2 Delivery O2 Flow Rate FiO2 04/26/17 16:34 96.8 52 20 123/80 (94) 99 04/26/17 06:29 Room Air I&O Intake and Output 04/26/17 07:00 Intake Total 1000 ml Balance 1000 ml Intake Oral 1000 ml Current Medications: Meds: Current Medications Acetaminophen (Tylenol) 650 mg PRN Q6HRS PRN PO PAIN / TEMP; Start 04/23/17 at 17:15 Multi-Ingredient Ointment (Analgesic [place]) 1 ana maría PRN QID PRN TP MUSCLE PAIN; Start 04/23/17 at 17:15 Al Hydroxide/Mg Hydroxide (Mylanta Plus Xs) 15 ml PRN AFTMEALHC PRN PO DYSPEPSIA; Start 04/23/17 at 17:15 Magnesium Hydroxide (Milk Of Magnesia) 2,400 mg PRN QHS PRN PO CONSTIPATION; Start 04/23/17 at 17:15 Aripiprazole (Abilify) 10 mg DAILY PO Last administered on 04/24/17 08:44; Start 04/24/17 at 09:00; Stop 04/24/17 at 19:02; Status DC Divalproex Sodium (Depakote Sprinkles) 500 mg TID PO Last administered on 20:41; Start 04/23/17 at 21:00 Donepezil HCl (Aricept) 10 mg DAILY PO Last administered on 04/26/17 08:37; Start 04/24/17 at 09:00 Duloxetine HCl (Cymbalta) 60 mg DAILY PO Last administered on 04/26/17 08:37; Start 04/24/17 at 09:00 Lorazepam (Ativan) 0.5 mg PRN Q6HRS PRN TP ANXIETY / AGITATION; Start 04/25/17 at 12:00 Lorazepam (Ativan) 0.5 mg PRN BID PRN PO ANXIETY / AGITATION; Start 04/23/17 at 18:00 Memantine (Namenda) 10 mg BID PO Last administered on 04/26/17 20:41; Start at 21:00 Quetiapine Fumarate (SEROquel) 25 mg PRN DAILY PRN PO PSYCHOSIS; Start 04/23/17 at 18:00 Acetaminophen (Tylenol) 650 mg PRN Q6HRS PRN PO PAIN / TEMP; Start 04/23/17 at 20:30; Status UNV Aspirin (Children'S Aspirin) 81 mg DAILY PO Last administered on 04/26/17 08: 37; Start 04/24/17 at 09:00 Bisacodyl (Dulcolax Supp) 10 mg PRN DAILY PRN RC CONSTIPATION; Start 04/23/17 at 20:30 Ketotifen Fumarate (Zaditor) 1 drop BID OU Last administered on 04/26/17 20:43 ; Start 04/23/17 at 21:00 Al Hydroxide/Mg Hydroxide (Mylanta Plus Xs) 15 ml PRN AFTMEALHC PRN PO DYSPEPSIA; Start 04/23/17 at 20:30; Status UNV Artificial Tears (Refresh Classic) 1 drop PRN QID PRN OD DRY EYE; Start at 20:45 Vitamin D (Vitamin D3) 4,000 unit DAILY PO Last administered on 04/26/17 08:39 ; Start 04/24/17 at 09:00 Non-Formulary Medication 2,400 mg PRN QHS PRN PO CONSTIPATION; Start 04/23/17 at 20:30; Status UNV Fluticasone Propionate (Flonase) 2 spray DAILY NS Last administered on 08:36; Start 04/24/17 at 09:00 Olanzapine (ZyPREXA ZYDIS) 2.5 mg PRN Q2HR PRN PO PSYCHOSIS Last administered on 04/26/17 09:17; Start 04/24/17 at 08:00 Carbidopa/Levodopa (Sinemet Cr) 1 tab.sa TID PO Last administered on 04/26/17 20:41; Start 04/24/17 at 21:00 Atorvastatin Calcium (Lipitor) 20 mg QHS PO Last administered on 04/26/17 20: 41; Start 04/25/17 at 21:00 Quetiapine Fumarate (SEROquel) 12.5 mg BID92 PO Last administered on 04/26/17 14:05; Start 04/26/17 at 09:00 Benztropine Mesylate (Cogentin) 0.5 mg BID PO Last administered on 04/26/17 20 :59; Start 04/26/17 at 21:00 Active Scripts Active Reported Nasacort (Triamcinolone Acetonide) 10.8 Ml [place] 2 Sprays NS DAILY [place] (Ketotifen Fumarate) 10 Ml Drops 1 Drop EACHEYE BID Bisacodyl 10 Mg Supp.rect 10 Mg RC PRN DAILY PRN Benadryl (Diphenhydramine Hcl) 25 Mg Capsule 12.5 Mg PO PRN BID PRN Refresh Tears (Carboxymethylcellulose Sodium) 15 Ml Drops 1 Drop OD PRN QID PRN Lorazepam 0.5 Mg Tablet 0.5 Mg TP PRN Q6HRS PRN Seroquel (Quetiapine Fumarate) 25 Mg Tablet 25 Mg PO PRN DAILY PRN Aspirin 81 Mg Tab.chew 81 Mg PO DAILY Maalox Maximum Strength Susp (Mag Hydrox/Al Hydrox/Simeth) 355 Ml Oral.susp 15 Ml PO PRN AFTMEALHC PRN Milk Of Magnesia (Magnesium Hydroxide) 2,400 Mg/10 Ml Oral.susp 2,400 Mg PO PRN QHS PRN Tylenol (Acetaminophen) 325 Mg Tablet 650 Mg PO PRN Q6HRS PRN Cymbalta (Duloxetine Hcl) 60 Mg Capsule.dr 60 Mg PO DAILY DO NOT CRUSH OR CHEW Vitamin D3 (Cholecalciferol (Vitamin D3)) 5,000 Unit Tablet 4,000 Unit PO DAILY Abilify (Aripiprazole) 5 Mg Tablet 10 Mg PO DAILY Loratadine 10 Mg Tablet 10 Mg PO DAILY Ativan (Lorazepam) 1 Mg Tablet 0.5 Mg PO BID PRN Namenda (Memantine Hcl) 10 Mg Tablet 10 Mg PO BID Aricept (Donepezil Hcl) 10 Mg Tablet 10 Mg PO DAILY Depakote Sprinkle (Divalproex Sodium) 125 Mg Cap.sprink 500 Mg PO TID GIVE WITH FOOD. Diagnosis: Problems: (1) Anxiety disorder (2) Impulse control disorder (3) Dementia, vascular, with depression (4) Dementia, vascular, with delusions (5) Dementia in Alzheimer's disease with depression (6) Dementia in Alzheimer's disease with delusions ISACC WEAVER MD Apr 26, 2017 23:20
[2017-04-27 06:21] VITALS: BP 100/68
[2017-04-27] MEDS: DONEPEZIL HCL 10 MG TABLET PO SCH (12:04)
[2017-04-27] MEDS: ASPIRIN 81 MG TAB.CHEW PO SCH (12:04)
[2017-04-27] MEDS: KETOTIFEN FUMARATE 0.025% OPHT SOLUTION BOTTLE. OU SCH ×2 (12:04→19:45)
[2017-04-27] MEDS: FLUTICASONE 50MCG/NASAL SPRAY 16GM BOTTLE. NS SCH (12:04)
[2017-04-27] MEDS: BENZTROPINE MESYLATE 0.5 MG TABLET PO SCH ×2 (12:05→19:44)
[2017-04-27] MEDS: QUEtiapine 25 MG TABLET. PO SCH ×2 (12:06→15:12)
[2017-04-27] MEDS: DIVALPROEX 125 MG CAP.SPRINK PO SCH ×3 (12:06→19:44)
[2017-04-27] MEDS: CHOLECALCIFEROL (VITAMIN D3) 1,000 UNIT TABLET PO SCH (12:06)
[2017-04-27] MEDS: DULoxetine HCL 60 MG CAPSULE.DR PO SCH (12:06)
[2017-04-27] MEDS: MEMANTINE 10 MG TABLET. PO SCH ×2 (12:06→19:44)
[2017-04-27] MEDS: CARBIDOPA/LEVODOPA CR 25/100MG TABLET.SA PO SCH ×3 (12:06→19:44)
[2017-04-27 17:37] VITALS: BP 67/54
[2017-04-27 18:06] VITALS: BP 90/70
[2017-04-27] MEDS: ATORVASTATIN CALCIUM 20 MG TABLET PO SCH (19:44)
--- NOTE | 2017-04-27 20:26 | PDOC ---
Exam Mj Demential Exam: Mj Note: Please also refer to the separate dictated note~for this date of service dictated separately.~Patient seen individually. Discussed the patient with Nursing staff reviewed the chart.~Reviewed interim history and current functioning. Reviewed vital signs,~Labs/ Radiology~and current medications noted below. Continue current treatment with the changes noted in the dictated addendum note Assessment: Vital Signs: Vital Signs Date Time Temp Pulse Resp B/P (MAP) Pulse Ox O2 Delivery O2 Flow Rate FiO2 04/27/17 18:06 92 90/70 (77) 04/27/17 17:37 96.7 20 90 04/26/17 06:29 Room Air I&O Intake and Output 04/27/17 07:00 Intake Total 720 ml Balance 720 ml Intake Oral 720 ml Current Medications: Meds: Current Medications Acetaminophen (Tylenol) 650 mg PRN Q6HRS PRN PO PAIN / TEMP; Start 04/23/17 at 17:15 Multi-Ingredient Ointment (Analgesic [place]) 1 ana maría PRN QID PRN TP MUSCLE PAIN; Start 04/23/17 at 17:15 Al Hydroxide/Mg Hydroxide (Mylanta Plus Xs) 15 ml PRN AFTMEALHC PRN PO DYSPEPSIA; Start 04/23/17 at 17:15 Magnesium Hydroxide (Milk Of Magnesia) 2,400 mg PRN QHS PRN PO CONSTIPATION; Start 04/23/17 at 17:15 Aripiprazole (Abilify) 10 mg DAILY PO Last administered on 04/24/17 08:44; Start 04/24/17 at 09:00; Stop 04/24/17 at 19:02; Status DC Divalproex Sodium (Depakote Sprinkles) 500 mg TID PO Last administered on 19:44; Start 04/23/17 at 21:00 Donepezil HCl (Aricept) 10 mg DAILY PO Last administered on 04/27/17 12:04; Start 04/24/17 at 09:00 Duloxetine HCl (Cymbalta) 60 mg DAILY PO Last administered on 04/27/17 12:06; Start 04/24/17 at 09:00 Lorazepam (Ativan) 0.5 mg PRN Q6HRS PRN TP ANXIETY / AGITATION; Start 04/25/17 at 12:00 Lorazepam (Ativan) 0.5 mg PRN BID PRN PO ANXIETY / AGITATION; Start 04/23/17 at 18:00 Memantine (Namenda) 10 mg BID PO Last administered on 04/27/17 19:44; Start at 21:00 Quetiapine Fumarate (SEROquel) 25 mg PRN DAILY PRN PO PSYCHOSIS; Start 04/23/17 at 18:00 Acetaminophen (Tylenol) 650 mg PRN Q6HRS PRN PO PAIN / TEMP; Start 04/23/17 at 20:30; Status UNV Aspirin (Children'S Aspirin) 81 mg DAILY PO Last administered on 04/27/17 12: 04; Start 04/24/17 at 09:00 Bisacodyl (Dulcolax Supp) 10 mg PRN DAILY PRN RC CONSTIPATION; Start 04/23/17 at 20:30 Ketotifen Fumarate (Zaditor) 1 drop BID OU Last administered on 04/27/17 19:45 ; Start 04/23/17 at 21:00 Al Hydroxide/Mg Hydroxide (Mylanta Plus Xs) 15 ml PRN AFTMEALHC PRN PO DYSPEPSIA; Start 04/23/17 at 20:30; Status UNV Artificial Tears (Refresh Classic) 1 drop PRN QID PRN OD DRY EYE; Start at 20:45 Vitamin D (Vitamin D3) 4,000 unit DAILY PO Last administered on 04/27/17 12:06 ; Start 04/24/17 at 09:00 Non-Formulary Medication 2,400 mg PRN QHS PRN PO CONSTIPATION; Start 04/23/17 at 20:30; Status UNV Fluticasone Propionate (Flonase) 2 spray DAILY NS Last administered on 12:04; Start 04/24/17 at 09:00 Olanzapine (ZyPREXA ZYDIS) 2.5 mg PRN Q2HR PRN PO PSYCHOSIS Last administered on 04/27/17 12:36; Start 04/24/17 at 08:00 Carbidopa/Levodopa (Sinemet Cr) 1 tab.sa TID PO Last administered on 04/27/17 19:44; Start 04/24/17 at 21:00 Atorvastatin Calcium (Lipitor) 20 mg QHS PO Last administered on 04/27/17 19: 44; Start 04/25/17 at 21:00 Quetiapine Fumarate (SEROquel) 12.5 mg BID92 PO Last administered on 04/27/17 15:12; Start 04/26/17 at 09:00; Stop 04/27/17 at 19:24; Status DC Benztropine Mesylate (Cogentin) 0.5 mg BID PO Last administered on 04/27/17 19 :44; Start 04/26/17 at 21:00 Quetiapine Fumarate (SEROquel) 12.5 mg TID@0900,1400,1800 PO ; Start 04/28/17 at 09:00 Active Scripts Active Reported Nasacort (Triamcinolone Acetonide) 10.8 Ml [place] 2 Sprays NS DAILY [place] (Ketotifen Fumarate) 10 Ml Drops 1 Drop EACHEYE BID Bisacodyl 10 Mg Supp.rect 10 Mg RC PRN DAILY PRN Benadryl (Diphenhydramine Hcl) 25 Mg Capsule 12.5 Mg PO PRN BID PRN Refresh Tears (Carboxymethylcellulose Sodium) 15 Ml Drops 1 Drop OD PRN QID PRN Lorazepam 0.5 Mg Tablet 0.5 Mg TP PRN Q6HRS PRN Seroquel (Quetiapine Fumarate) 25 Mg Tablet 25 Mg PO PRN DAILY PRN Aspirin 81 Mg Tab.chew 81 Mg PO DAILY Maalox Maximum Strength Susp (Mag Hydrox/Al Hydrox/Simeth) 355 Ml Oral.susp 15 Ml PO PRN AFTMEALHC PRN Milk Of Magnesia (Magnesium Hydroxide) 2,400 Mg/10 Ml Oral.susp 2,400 Mg PO PRN QHS PRN Tylenol (Acetaminophen) 325 Mg Tablet 650 Mg PO PRN Q6HRS PRN Cymbalta (Duloxetine Hcl) 60 Mg Capsule.dr 60 Mg PO DAILY DO NOT CRUSH OR CHEW Vitamin D3 (Cholecalciferol (Vitamin D3)) 5,000 Unit Tablet 4,000 Unit PO DAILY Abilify (Aripiprazole) 5 Mg Tablet 10 Mg PO DAILY Loratadine 10 Mg Tablet 10 Mg PO DAILY Ativan (Lorazepam) 1 Mg Tablet 0.5 Mg PO BID PRN Namenda (Memantine Hcl) 10 Mg Tablet 10 Mg PO BID Aricept (Donepezil Hcl) 10 Mg Tablet 10 Mg PO DAILY Depakote Sprinkle (Divalproex Sodium) 125 Mg Cap.sprink 500 Mg PO TID GIVE WITH FOOD. Diagnosis: Problems: (1) Anxiety disorder (2) Impulse control disorder (3) Dementia, vascular, with depression (4) Dementia, vascular, with delusions (5) Dementia in Alzheimer's disease with depression (6) Dementia in Alzheimer's disease with delusions ISACC WEAVER MD Apr 27, 2017 20:26
[2017-04-27] MEDS: ACETAMINOPHEN 325 MG TABLET PO PRN (21:00)
--- NOTE | 2017-04-27 22:01 | PN ---
DATE: 04/26/2017 This is a late entry for 04/26/2017 and covers elements not covered in my initial note. I met with the patient evening of 04/26/2017. The patient was agitated and aggressive in the morning. Nursing staff had called me. As he was a significant fall risk, he was placed on one-on-one status for safety while awake. He has been doing better since then. REVIEW OF SYSTEMS: Ambulation impaired. No CV, , pulmonary, eye, ENT system symptoms on review. MENTAL STATUS EXAM: Oriented to himself. Insight, judgment, recent and remote memory, attention, concentration, fund of knowledge poor, consistent with his diagnosis mentioned in my initial note. PLAN: Continue current psychotropics as mentioned in my initial note. Valproic acid level is 85. Adjust further as clinically indicated. MAN Mary WEAVER MD DR: MARIAM/piter JOB#: [id number] / [id number]
[2017-04-28 06:29] VITALS: BP 94/62
[2017-04-28] MEDS: MEMANTINE 10 MG TABLET. PO SCH ×2 (08:32→20:09)
[2017-04-28] MEDS: DULoxetine HCL 60 MG CAPSULE.DR PO SCH (08:32)
[2017-04-28] MEDS: BENZTROPINE MESYLATE 0.5 MG TABLET PO SCH ×2 (08:32→20:08)
[2017-04-28] MEDS: ASPIRIN 81 MG TAB.CHEW PO SCH (08:32)
[2017-04-28] MEDS: DONEPEZIL HCL 10 MG TABLET PO SCH (08:32)
[2017-04-28] MEDS: KETOTIFEN FUMARATE 0.025% OPHT SOLUTION BOTTLE. OU SCH ×2 (08:32→20:08)
[2017-04-28] MEDS: DIVALPROEX 125 MG CAP.SPRINK PO SCH ×3 (08:32→20:09)
[2017-04-28] MEDS: FLUTICASONE 50MCG/NASAL SPRAY 16GM BOTTLE. NS SCH (08:32)
[2017-04-28] MEDS: CARBIDOPA/LEVODOPA CR 25/100MG TABLET.SA PO SCH ×3 (08:32→20:08)
[2017-04-28] MEDS: CHOLECALCIFEROL (VITAMIN D3) 1,000 UNIT TABLET PO SCH (08:33)
[2017-04-28] MEDS: QUEtiapine 25 MG TABLET. PO SCH ×3 (09:33→16:50)
[2017-04-28] MEDS: ACETAMINOPHEN 325 MG TABLET PO PRN (16:50)
[2017-04-28 16:59] VITALS: BP 91/60
[2017-04-28] MEDS: ATORVASTATIN CALCIUM 20 MG TABLET PO SCH (20:09)
--- NOTE | 2017-04-28 20:26 | PDOC ---
Exam Mj Demential Exam: Mj Note: Please also refer to the separate dictated note~for this date of service dictated separately.~Patient seen individually. Discussed the patient with Nursing staff reviewed the chart.~Reviewed interim history and current functioning. Reviewed vital signs,~Labs/ Radiology~and current medications noted below. Continue current treatment with the changes noted in the dictated addendum note Assessment: Vital Signs: Vital Signs Date Time Temp Pulse Resp B/P (MAP) Pulse Ox O2 Delivery O2 Flow Rate FiO2 04/28/17 16:59 98.7 55 18 91/60 (70) 94 04/26/17 06:29 Room Air I&O Intake and Output 04/28/17 07:00 Intake Total 470 ml Balance 470 ml Intake Oral 470 ml # Voids 2 # Bowel Movements 1 Current Medications: Meds: Current Medications Acetaminophen (Tylenol) 650 mg PRN Q6HRS PRN PO PAIN / TEMP Last administered on 04/28/17 16:50; Start 04/23/17 at 17:15 Multi-Ingredient Ointment (Analgesic [place]) 1 ana maría PRN QID PRN TP MUSCLE PAIN; Start 04/23/17 at 17:15 Al Hydroxide/Mg Hydroxide (Mylanta Plus Xs) 15 ml PRN AFTMEALHC PRN PO DYSPEPSIA; Start 04/23/17 at 17:15 Magnesium Hydroxide (Milk Of Magnesia) 2,400 mg PRN QHS PRN PO CONSTIPATION; Start 04/23/17 at 17:15 Aripiprazole (Abilify) 10 mg DAILY PO Last administered on 04/24/17 08:44; Start 04/24/17 at 09:00; Stop 04/24/17 at 19:02; Status DC Divalproex Sodium (Depakote Sprinkles) 500 mg TID PO Last administered on 20:09; Start 04/23/17 at 21:00 Donepezil HCl (Aricept) 10 mg DAILY PO Last administered on 04/28/17 08:32; Start 04/24/17 at 09:00 Duloxetine HCl (Cymbalta) 60 mg DAILY PO Last administered on 04/28/17 08:32; Start 04/24/17 at 09:00 Lorazepam (Ativan) 0.5 mg PRN Q6HRS PRN TP ANXIETY / AGITATION; Start 04/25/17 at 12:00 Lorazepam (Ativan) 0.5 mg PRN BID PRN PO ANXIETY / AGITATION; Start 04/23/17 at 18:00 Memantine (Namenda) 10 mg BID PO Last administered on 04/28/17 20:09; Start at 21:00 Quetiapine Fumarate (SEROquel) 25 mg PRN DAILY PRN PO PSYCHOSIS; Start 04/23/17 at 18:00 Acetaminophen (Tylenol) 650 mg PRN Q6HRS PRN PO PAIN / TEMP; Start 04/23/17 at 20:30; Status UNV Aspirin (Children'S Aspirin) 81 mg DAILY PO Last administered on 04/28/17 08: 32; Start 04/24/17 at 09:00 Bisacodyl (Dulcolax Supp) 10 mg PRN DAILY PRN RC CONSTIPATION; Start 04/23/17 at 20:30 Ketotifen Fumarate (Zaditor) 1 drop BID OU Last administered on 04/28/17 20:08 ; Start 04/23/17 at 21:00 Al Hydroxide/Mg Hydroxide (Mylanta Plus Xs) 15 ml PRN AFTMEALHC PRN PO DYSPEPSIA; Start 04/23/17 at 20:30; Status UNV Artificial Tears (Refresh Classic) 1 drop PRN QID PRN OD DRY EYE; Start at 20:45 Vitamin D (Vitamin D3) 4,000 unit DAILY PO Last administered on 04/28/17 08:33 ; Start 04/24/17 at 09:00 Non-Formulary Medication 2,400 mg PRN QHS PRN PO CONSTIPATION; Start 04/23/17 at 20:30; Status UNV Fluticasone Propionate (Flonase) 2 spray DAILY NS Last administered on 08:32; Start 04/24/17 at 09:00 Olanzapine (ZyPREXA ZYDIS) 2.5 mg PRN Q2HR PRN PO PSYCHOSIS Last administered on 04/28/17 15:41; Start 04/24/17 at 08:00 Carbidopa/Levodopa (Sinemet Cr) 1 tab.sa TID PO Last administered on 04/28/17 20:08; Start 04/24/17 at 21:00 Atorvastatin Calcium (Lipitor) 20 mg QHS PO Last administered on 04/28/17 20: 09; Start 04/25/17 at 21:00 Quetiapine Fumarate (SEROquel) 12.5 mg BID92 PO Last administered on 04/27/17 15:12; Start 04/26/17 at 09:00; Stop 04/27/17 at 19:24; Status DC Benztropine Mesylate (Cogentin) 0.5 mg BID PO Last administered on 04/28/17 20 :08; Start 04/26/17 at 21:00 Quetiapine Fumarate (SEROquel) 12.5 mg TID@0900,1400,1800 PO Last administered on 04/28/17 16:50; Start 04/28/17 at 09:00 Active Scripts Active Reported Nasacort (Triamcinolone Acetonide) 10.8 Ml [place] 2 Sprays NS DAILY [place] (Ketotifen Fumarate) 10 Ml Drops 1 Drop EACHEYE BID Bisacodyl 10 Mg Supp.rect 10 Mg RC PRN DAILY PRN Benadryl (Diphenhydramine Hcl) 25 Mg Capsule 12.5 Mg PO PRN BID PRN Refresh Tears (Carboxymethylcellulose Sodium) 15 Ml Drops 1 Drop OD PRN QID PRN Lorazepam 0.5 Mg Tablet 0.5 Mg TP PRN Q6HRS PRN Seroquel (Quetiapine Fumarate) 25 Mg Tablet 25 Mg PO PRN DAILY PRN Aspirin 81 Mg Tab.chew 81 Mg PO DAILY Maalox Maximum Strength Susp (Mag Hydrox/Al Hydrox/Simeth) 355 Ml Oral.susp 15 Ml PO PRN AFTMEALHC PRN Milk Of Magnesia (Magnesium Hydroxide) 2,400 Mg/10 Ml Oral.susp 2,400 Mg PO PRN QHS PRN Tylenol (Acetaminophen) 325 Mg Tablet 650 Mg PO PRN Q6HRS PRN Cymbalta (Duloxetine Hcl) 60 Mg Capsule.dr 60 Mg PO DAILY DO NOT CRUSH OR CHEW Vitamin D3 (Cholecalciferol (Vitamin D3)) 5,000 Unit Tablet 4,000 Unit PO DAILY Abilify (Aripiprazole) 5 Mg Tablet 10 Mg PO DAILY Loratadine 10 Mg Tablet 10 Mg PO DAILY Ativan (Lorazepam) 1 Mg Tablet 0.5 Mg PO BID PRN Namenda (Memantine Hcl) 10 Mg Tablet 10 Mg PO BID Aricept (Donepezil Hcl) 10 Mg Tablet 10 Mg PO DAILY Depakote Sprinkle (Divalproex Sodium) 125 Mg Cap.sprink 500 Mg PO TID GIVE WITH FOOD. Diagnosis: Problems: (1) Anxiety disorder (2) Impulse control disorder (3) Dementia, vascular, with depression (4) Dementia, vascular, with delusions (5) Dementia in Alzheimer's disease with depression (6) Dementia in Alzheimer's disease with delusions ISACC WEAVER MD Apr 28, 2017 20:26
[2017-04-29] MEDS: KETOTIFEN FUMARATE 0.025% OPHT SOLUTION BOTTLE. OU SCH ×2 (09:00→21:00)
[2017-04-29] MEDS: CHOLECALCIFEROL (VITAMIN D3) 1,000 UNIT TABLET PO SCH (09:00)
[2017-04-29] MEDS: FLUTICASONE 50MCG/NASAL SPRAY 16GM BOTTLE. NS SCH (09:00)
[2017-04-29] MEDS: CARBIDOPA/LEVODOPA CR 25/100MG TABLET.SA PO SCH ×3 (09:53→19:36)
[2017-04-29] MEDS: BENZTROPINE MESYLATE 0.5 MG TABLET PO SCH ×2 (09:53→19:36)
[2017-04-29] MEDS: QUEtiapine 25 MG TABLET. PO SCH ×4 (09:53→19:40)
[2017-04-29] MEDS: MEMANTINE 10 MG TABLET. PO SCH ×2 (09:53→19:35)
[2017-04-29] MEDS: DIVALPROEX 125 MG CAP.SPRINK PO SCH ×3 (09:53→19:36)
[2017-04-29] MEDS: DULoxetine HCL 60 MG CAPSULE.DR PO SCH (09:53)
[2017-04-29] MEDS: ASPIRIN 81 MG TAB.CHEW PO SCH (09:54)
[2017-04-29] MEDS: DONEPEZIL HCL 10 MG TABLET PO SCH (09:54)
--- NOTE | 2017-04-29 10:21 | PN ---
DATE: 04/27/2017 PSYCHIATRIC PROGRESS NOTE This is a late entry 04/27/2017, covers elements not covered in my initial note of 04/27/2017. SUBJECTIVE: The patient seen individually evening of 04/27/2017. His gait is little better. He still on one-on-one is a fall risk. Slept till lunchtime then was aggressive, shaking and cursing staff, cooperative with staff with ADLs after he had a bowel movement and then was intermittently aggressive. REVIEW OF SYSTEMS: Ambulation impaired. No CV, , pulmonary, eye, ENT system symptoms on review. MENTAL STATUS EXAM: Oriented to himself. Insight, judgment, recent and remote memory, attention, concentration, fund of knowledge poor, consistent with his diagnoses mentioned in my initial note. LABORATORY DATA: Reviewed. PLAN: Increase Seroquel from 12.5 mg b.i.d. to 12.5 mg t.i.d. Continue rest of the psychotropics, review drug interactions. Risk/benefit ratio favors no further change at this time. MAN Mary WEAVER MD DR: MARIAM/piter JOB#: [id number] / [id number]
[2017-04-29 16:35] VITALS: BP 92/62
[2017-04-29] MEDS: ATORVASTATIN CALCIUM 20 MG TABLET PO SCH (19:36)
--- NOTE | 2017-04-29 20:02 | PDOC ---
Exam Mj Demential Exam: Mj Note: Please also refer to the separate dictated note~for this date of service dictated separately.~Patient seen individually. Discussed the patient with Nursing staff reviewed the chart.~Reviewed interim history and current functioning. Reviewed vital signs,~Labs/ Radiology~and current medications noted below. Continue current treatment with the changes noted in the dictated addendum note Assessment: Vital Signs: Vital Signs Date Time Temp Pulse Resp B/P (MAP) Pulse Ox O2 Delivery O2 Flow Rate FiO2 04/29/17 16:35 97.6 86 18 92/62 (72) 98 04/26/17 06:29 Room Air I&O Intake and Output 04/29/17 07:00 Intake Total 1020 ml Balance 1020 ml Intake Oral 1020 ml Current Medications: Meds: Current Medications Acetaminophen (Tylenol) 650 mg PRN Q6HRS PRN PO PAIN / TEMP Last administered on 04/28/17 16:50; Start 04/23/17 at 17:15 Multi-Ingredient Ointment (Analgesic [place]) 1 ana maría PRN QID PRN TP MUSCLE PAIN; Start 04/23/17 at 17:15 Al Hydroxide/Mg Hydroxide (Mylanta Plus Xs) 15 ml PRN AFTMEALHC PRN PO DYSPEPSIA; Start 04/23/17 at 17:15 Magnesium Hydroxide (Milk Of Magnesia) 2,400 mg PRN QHS PRN PO CONSTIPATION Last administered on 04/29/17 14:31; Start 04/23/17 at 17:15 Aripiprazole (Abilify) 10 mg DAILY PO Last administered on 04/24/17 08:44; Start 04/24/17 at 09:00; Stop 04/24/17 at 19:02; Status DC Divalproex Sodium (Depakote Sprinkles) 500 mg TID PO Last administered on 19:36; Start 04/23/17 at 21:00 Donepezil HCl (Aricept) 10 mg DAILY PO Last administered on 04/29/17 09:54; Start 04/24/17 at 09:00 Duloxetine HCl (Cymbalta) 60 mg DAILY PO Last administered on 04/29/17 09:53; Start 04/24/17 at 09:00 Lorazepam (Ativan) 0.5 mg PRN Q6HRS PRN TP ANXIETY / AGITATION; Start 04/25/17 at 12:00 Lorazepam (Ativan) 0.5 mg PRN BID PRN PO ANXIETY / AGITATION; Start 04/23/17 at 18:00 Memantine (Namenda) 10 mg BID PO Last administered on 04/29/17 19:35; Start at 21:00 Quetiapine Fumarate (SEROquel) 25 mg PRN DAILY PRN PO PSYCHOSIS; Start 04/23/17 at 18:00 Acetaminophen (Tylenol) 650 mg PRN Q6HRS PRN PO PAIN / TEMP; Start 04/23/17 at 20:30; Status UNV Aspirin (Children'S Aspirin) 81 mg DAILY PO Last administered on 04/29/17 09: 54; Start 04/24/17 at 09:00 Bisacodyl (Dulcolax Supp) 10 mg PRN DAILY PRN RC CONSTIPATION; Start 04/23/17 at 20:30 Ketotifen Fumarate (Zaditor) 1 drop BID OU Last administered on 04/29/17 09:00 ; Start 04/23/17 at 21:00 Al Hydroxide/Mg Hydroxide (Mylanta Plus Xs) 15 ml PRN AFTMEALHC PRN PO DYSPEPSIA; Start 04/23/17 at 20:30; Status UNV Artificial Tears (Refresh Classic) 1 drop PRN QID PRN OD DRY EYE; Start at 20:45 Vitamin D (Vitamin D3) 4,000 unit DAILY PO Last administered on 04/28/17 08:33 ; Start 04/24/17 at 09:00 Non-Formulary Medication 2,400 mg PRN QHS PRN PO CONSTIPATION; Start 04/23/17 at 20:30; Status UNV Fluticasone Propionate (Flonase) 2 spray DAILY NS Last administered on 08:32; Start 04/24/17 at 09:00 Olanzapine (ZyPREXA ZYDIS) 2.5 mg PRN Q2HR PRN PO PSYCHOSIS Last administered on 04/29/17 11:35; Start 04/24/17 at 08:00 Carbidopa/Levodopa (Sinemet Cr) 1 tab.sa TID PO Last administered on 04/29/17 19:36; Start 04/24/17 at 21:00 Atorvastatin Calcium (Lipitor) 20 mg QHS PO Last administered on 04/29/17 19: 36; Start 04/25/17 at 21:00 Quetiapine Fumarate (SEROquel) 12.5 mg BID92 PO Last administered on 04/27/17 15:12; Start 04/26/17 at 09:00; Stop 04/27/17 at 19:24; Status DC Benztropine Mesylate (Cogentin) 0.5 mg BID PO Last administered on 04/29/17 19 :36; Start 04/26/17 at 21:00 Quetiapine Fumarate (SEROquel) 12.5 mg TID@0900,1400,1800 PO Last administered on 04/29/17 18:08; Start 04/28/17 at 09:00; Stop 04/29/17 at 18:15; Status DC Quetiapine Fumarate (SEROquel) 12.5 mg QID PO Last administered on 04/29/17 19 :40; Start 04/29/17 at 21:00 Active Scripts Active Reported Nasacort (Triamcinolone Acetonide) 10.8 Ml [place] 2 Sprays NS DAILY [place] (Ketotifen Fumarate) 10 Ml Drops 1 Drop EACHEYE BID Bisacodyl 10 Mg Supp.rect 10 Mg RC PRN DAILY PRN Benadryl (Diphenhydramine Hcl) 25 Mg Capsule 12.5 Mg PO PRN BID PRN Refresh Tears (Carboxymethylcellulose Sodium) 15 Ml Drops 1 Drop OD PRN QID PRN Lorazepam 0.5 Mg Tablet 0.5 Mg TP PRN Q6HRS PRN Seroquel (Quetiapine Fumarate) 25 Mg Tablet 25 Mg PO PRN DAILY PRN Aspirin 81 Mg Tab.chew 81 Mg PO DAILY Maalox Maximum Strength Susp (Mag Hydrox/Al Hydrox/Simeth) 355 Ml Oral.susp 15 Ml PO PRN AFTMEALHC PRN Milk Of Magnesia (Magnesium Hydroxide) 2,400 Mg/10 Ml Oral.susp 2,400 Mg PO PRN QHS PRN Tylenol (Acetaminophen) 325 Mg Tablet 650 Mg PO PRN Q6HRS PRN Cymbalta (Duloxetine Hcl) 60 Mg Capsule.dr 60 Mg PO DAILY DO NOT CRUSH OR CHEW Vitamin D3 (Cholecalciferol (Vitamin D3)) 5,000 Unit Tablet 4,000 Unit PO DAILY Abilify (Aripiprazole) 5 Mg Tablet 10 Mg PO DAILY Loratadine 10 Mg Tablet 10 Mg PO DAILY Ativan (Lorazepam) 1 Mg Tablet 0.5 Mg PO BID PRN Namenda (Memantine Hcl) 10 Mg Tablet 10 Mg PO BID Aricept (Donepezil Hcl) 10 Mg Tablet 10 Mg PO DAILY Depakote Sprinkle (Divalproex Sodium) 125 Mg Cap.sprink 500 Mg PO TID GIVE WITH FOOD. Diagnosis: Problems: (1) Anxiety disorder (2) Impulse control disorder (3) Dementia, vascular, with depression (4) Dementia, vascular, with delusions (5) Dementia in Alzheimer's disease with depression (6) Dementia in Alzheimer's disease with delusions ISACC WEAVER MD Apr 29, 2017 20:02
[2017-04-30] MEDS: LORazepam TOPICAL 0.5 MG/ML GEL TP PRN (03:08)
--- NOTE | 2017-04-30 04:18 | PN ---
DATE: 04/28/2017 This late entry for 04/28/2017 covers elements not covered in my initial note of 04/28/2017. SUBJECTIVE: I met with the patient in the evening of 04/28/2017. The patient's gait is better. He had a difficult day that nursing staff described as "rough." He is being charging at staff, gets aggressive, he has been grabbing, shaking, pushing staff members, received Zyprexa p.r.n. REVIEW OF SYSTEMS: No CV, , pulmonary, eye, ENT system symptoms on review. Reliability poor. MENTAL STATUS EXAM: Oriented to himself. Insight, judgment, recent and remote memory, attention, concentration, fund of knowledge poor, consistent with his diagnosis mentioned in my initial note. PLAN: Seroquel was increased to 12.5 mg 3 times a day. We will not increase it further just yet, give it another day before deciding, maintain, the rest unchanged as noted in my initial note. Reviewed drug interactions. Risk/benefit ratio favors no further change as of 04/28/2017 MAN Mary WEAVER MD DR: MARIAM/piter JOB#: [id number] / [id number]
[2017-04-30] MEDS: KETOTIFEN FUMARATE 0.025% OPHT SOLUTION BOTTLE. OU SCH ×2 (09:00→19:25)
[2017-04-30] MEDS: DIVALPROEX 125 MG CAP.SPRINK PO SCH ×3 (09:06→19:23)
[2017-04-30] MEDS: MEMANTINE 10 MG TABLET. PO SCH ×2 (09:07→19:23)
[2017-04-30] MEDS: DONEPEZIL HCL 10 MG TABLET PO SCH (09:07)
[2017-04-30] MEDS: CHOLECALCIFEROL (VITAMIN D3) 1,000 UNIT TABLET PO SCH (09:07)
[2017-04-30] MEDS: ASPIRIN 81 MG TAB.CHEW PO SCH (09:07)
[2017-04-30] MEDS: BENZTROPINE MESYLATE 0.5 MG TABLET PO SCH ×2 (09:07→19:23)
[2017-04-30] MEDS: CARBIDOPA/LEVODOPA CR 25/100MG TABLET.SA PO SCH ×3 (09:07→19:23)
[2017-04-30] MEDS: QUEtiapine 25 MG TABLET. PO SCH ×4 (09:07→19:24)
[2017-04-30] MEDS: DULoxetine HCL 60 MG CAPSULE.DR PO SCH (09:07)
[2017-04-30] MEDS: FLUTICASONE 50MCG/NASAL SPRAY 16GM BOTTLE. NS SCH (09:08)
[2017-04-30 16:36] VITALS: BP 92/62
[2017-04-30] MEDS: ACETAMINOPHEN 325 MG TABLET PO PRN (18:52)
[2017-04-30] MEDS: ATORVASTATIN CALCIUM 20 MG TABLET PO SCH (19:23)
--- NOTE | 2017-04-30 20:01 | PDOC ---
Exam Mj Demential Exam: Mj Note: Please also refer to the separate dictated note~for this date of service dictated separately.~Patient seen individually. Discussed the patient with Nursing staff reviewed the chart.~Reviewed interim history and current functioning. Reviewed vital signs,~Labs/ Radiology~and current medications noted below. Continue current treatment with the changes noted in the dictated addendum note Assessment: Vital Signs: Vital Signs Date Time Temp Pulse Resp B/P (MAP) Pulse Ox O2 Delivery O2 Flow Rate FiO2 04/30/17 16:36 97.8 89 18 92/62 (72) 98 04/26/17 06:29 Room Air I&O Intake and Output 04/30/17 07:00 Intake Total 420 ml Balance 420 ml Intake Oral 420 ml # Voids 1 Current Medications: Meds: Current Medications Acetaminophen (Tylenol) 650 mg PRN Q6HRS PRN PO PAIN / TEMP Last administered on 04/30/17 18:52; Start 04/23/17 at 17:15 Multi-Ingredient Ointment (Analgesic [place]) 1 ana maría PRN QID PRN TP MUSCLE PAIN; Start 04/23/17 at 17:15 Al Hydroxide/Mg Hydroxide (Mylanta Plus Xs) 15 ml PRN AFTMEALHC PRN PO DYSPEPSIA; Start 04/23/17 at 17:15 Magnesium Hydroxide (Milk Of Magnesia) 2,400 mg PRN QHS PRN PO CONSTIPATION Last administered on 04/29/17 14:31; Start 04/23/17 at 17:15 Aripiprazole (Abilify) 10 mg DAILY PO Last administered on 04/24/17 08:44; Start 04/24/17 at 09:00; Stop 04/24/17 at 19:02; Status DC Divalproex Sodium (Depakote Sprinkles) 500 mg TID PO Last administered on 19:23; Start 04/23/17 at 21:00 Donepezil HCl (Aricept) 10 mg DAILY PO Last administered on 04/30/17 09:07; Start 04/24/17 at 09:00 Duloxetine HCl (Cymbalta) 60 mg DAILY PO Last administered on 04/30/17 09:07; Start 04/24/17 at 09:00 Lorazepam (Ativan) 0.5 mg PRN Q6HRS PRN TP ANXIETY / AGITATION Last administered on 04/30/17 03:08; Start 04/25/17 at 12:00 Lorazepam (Ativan) 0.5 mg PRN BID PRN PO ANXIETY / AGITATION; Start 04/23/17 at 18:00 Memantine (Namenda) 10 mg BID PO Last administered on 04/30/17 19:23; Start at 21:00 Quetiapine Fumarate (SEROquel) 25 mg PRN DAILY PRN PO PSYCHOSIS; Start 04/23/17 at 18:00 Acetaminophen (Tylenol) 650 mg PRN Q6HRS PRN PO PAIN / TEMP; Start 04/23/17 at 20:30; Status UNV Aspirin (Children'S Aspirin) 81 mg DAILY PO Last administered on 04/30/17 09: 07; Start 04/24/17 at 09:00 Bisacodyl (Dulcolax Supp) 10 mg PRN DAILY PRN RC CONSTIPATION; Start 04/23/17 at 20:30 Ketotifen Fumarate (Zaditor) 1 drop BID OU Last administered on 04/30/17 19:25 ; Start 04/23/17 at 21:00 Al Hydroxide/Mg Hydroxide (Mylanta Plus Xs) 15 ml PRN AFTMEALHC PRN PO DYSPEPSIA; Start 04/23/17 at 20:30; Status UNV Artificial Tears (Refresh Classic) 1 drop PRN QID PRN OD DRY EYE; Start at 20:45 Vitamin D (Vitamin D3) 4,000 unit DAILY PO Last administered on 04/30/17 09:07 ; Start 04/24/17 at 09:00 Non-Formulary Medication 2,400 mg PRN QHS PRN PO CONSTIPATION; Start 04/23/17 at 20:30; Status UNV Fluticasone Propionate (Flonase) 2 spray DAILY NS Last administered on 08:32; Start 04/24/17 at 09:00 Olanzapine (ZyPREXA ZYDIS) 2.5 mg PRN Q2HR PRN PO PSYCHOSIS Last administered on 04/30/17 10:46; Start 04/24/17 at 08:00 Carbidopa/Levodopa (Sinemet Cr) 1 tab.sa TID PO Last administered on 04/30/17 19:23; Start 04/24/17 at 21:00 Atorvastatin Calcium (Lipitor) 20 mg QHS PO Last administered on 04/30/17 19: 23; Start 04/25/17 at 21:00 Quetiapine Fumarate (SEROquel) 12.5 mg BID92 PO Last administered on 04/27/17 15:12; Start 04/26/17 at 09:00; Stop 04/27/17 at 19:24; Status DC Benztropine Mesylate (Cogentin) 0.5 mg BID PO Last administered on 04/30/17 19 :23; Start 04/26/17 at 21:00 Quetiapine Fumarate (SEROquel) 12.5 mg TID@0900,1400,1800 PO Last administered on 04/29/17 18:08; Start 04/28/17 at 09:00; Stop 04/29/17 at 18:15; Status DC Quetiapine Fumarate (SEROquel) 12.5 mg QID PO Last administered on 04/30/17 19 :24; Start 04/29/17 at 21:00 Active Scripts Active Reported Nasacort (Triamcinolone Acetonide) 10.8 Ml [place] 2 Sprays NS DAILY [place] (Ketotifen Fumarate) 10 Ml Drops 1 Drop EACHEYE BID Bisacodyl 10 Mg Supp.rect 10 Mg RC PRN DAILY PRN Benadryl (Diphenhydramine Hcl) 25 Mg Capsule 12.5 Mg PO PRN BID PRN Refresh Tears (Carboxymethylcellulose Sodium) 15 Ml Drops 1 Drop OD PRN QID PRN Lorazepam 0.5 Mg Tablet 0.5 Mg TP PRN Q6HRS PRN Seroquel (Quetiapine Fumarate) 25 Mg Tablet 25 Mg PO PRN DAILY PRN Aspirin 81 Mg Tab.chew 81 Mg PO DAILY Maalox Maximum Strength Susp (Mag Hydrox/Al Hydrox/Simeth) 355 Ml Oral.susp 15 Ml PO PRN AFTMEALHC PRN Milk Of Magnesia (Magnesium Hydroxide) 2,400 Mg/10 Ml Oral.susp 2,400 Mg PO PRN QHS PRN Tylenol (Acetaminophen) 325 Mg Tablet 650 Mg PO PRN Q6HRS PRN Cymbalta (Duloxetine Hcl) 60 Mg Capsule.dr 60 Mg PO DAILY DO NOT CRUSH OR CHEW Vitamin D3 (Cholecalciferol (Vitamin D3)) 5,000 Unit Tablet 4,000 Unit PO DAILY Abilify (Aripiprazole) 5 Mg Tablet 10 Mg PO DAILY Loratadine 10 Mg Tablet 10 Mg PO DAILY Ativan (Lorazepam) 1 Mg Tablet 0.5 Mg PO BID PRN Namenda (Memantine Hcl) 10 Mg Tablet 10 Mg PO BID Aricept (Donepezil Hcl) 10 Mg Tablet 10 Mg PO DAILY Depakote Sprinkle (Divalproex Sodium) 125 Mg Cap.sprink 500 Mg PO TID GIVE WITH FOOD. Diagnosis: Problems: (1) Anxiety disorder (2) Impulse control disorder (3) Dementia, vascular, with depression (4) Dementia, vascular, with delusions (5) Dementia in Alzheimer's disease with depression (6) Dementia in Alzheimer's disease with delusions ISACC WEAVER MD Apr 30, 2017 20:01
[2017-05-01 05:59] VITALS: BP 94/50
[2017-05-01 08:48] LABS: BASO % 1 % (0-3); EOS # 0.1 x10^3/uL (0.0-0.7); EOS % 2 % (0-3); HEMATOCRIT 40.9 % (39.0-53.0); HEMOGLOBIN 13.9 g/dL (13.0-17.5); LYMPH # 1.8 x10^3/uL (1.0-4.8); LYMPH % 34 % (24-48); MEAN CORPUSCULAR HEMOGLOBIN 33 pg (25-35); MEAN CORPUSCULAR HGB CONC 34 g/dL (31-37); MEAN CORPUSCULAR VOLUME 97 fL (79-100); MONO # 0.4 x10^3/uL (0.0-1.1); MONO % 8 % (0-9); NEUT % 56 % (31-73); PLATELET COUNT 192 x10^3/uL (140-400); RED CELL DISTRIBUTION WIDTH 13.7 % (11.5-14.5); WHITE BLOOD COUNT 5.4 x10^3/uL (4.0-11.0)
[2017-05-01 09:07] LABS: ALBUMIN 3.1 g/dL (3.4-5.0); ALBUMIN/GLOBULIN RATIO 1.1 (1.0-1.7); CALCIUM 9.1 mg/dL (8.5-10.1); CREATININE 0.9 mg/dL (0.7-1.3); GFR 84.7; POTASSIUM 5.6 mmol/L (3.5-5.1); TOTAL BILIRUBIN 0.3 mg/dL (0.2-1.0)
[2017-05-01 09:15] LABS: VAL ACID 75 mcg/mL (50-100)
[2017-05-01] MEDS: CHOLECALCIFEROL (VITAMIN D3) 1,000 UNIT TABLET PO SCH (11:05)
[2017-05-01] MEDS: DULoxetine HCL 60 MG CAPSULE.DR PO SCH (11:06)
[2017-05-01] MEDS: MEMANTINE 10 MG TABLET. PO SCH ×2 (11:06→20:01)
[2017-05-01] MEDS: CARBIDOPA/LEVODOPA CR 25/100MG TABLET.SA PO SCH ×3 (11:06→20:01)
[2017-05-01] MEDS: DIVALPROEX 125 MG CAP.SPRINK PO SCH ×3 (11:06→20:02)
[2017-05-01] MEDS: QUEtiapine 25 MG TABLET. PO SCH ×4 (11:06→20:01)
[2017-05-01] MEDS: ASPIRIN 81 MG TAB.CHEW PO SCH (11:07)
[2017-05-01] MEDS: DONEPEZIL HCL 10 MG TABLET PO SCH (11:07)
[2017-05-01] MEDS: BENZTROPINE MESYLATE 0.5 MG TABLET PO SCH ×2 (11:07→20:01)
[2017-05-01] MEDS: FLUTICASONE 50MCG/NASAL SPRAY 16GM BOTTLE. NS SCH (11:07)
[2017-05-01] MEDS: KETOTIFEN FUMARATE 0.025% OPHT SOLUTION BOTTLE. OU SCH ×2 (11:07→20:00)
--- NOTE | 2017-05-01 13:08 | PN ---
DATE: 04/29/2017 PSYCHIATRIC PROGRESS NOTE This is a late entry 04/29/2017, covers elements sort covered in my initial note of 04/29/2017. SUBJECTIVE: I met with the patient evening of 04/29/2017 and met with the patient's daughter at some length as well. Discussed the patient's diagnosis, progress, the fact we stopped the Abilify, changes in his psychotropics including the Seroquel. He remains on one-on-one status, impulsive, pushing at staff, and at times staffs have to keep a distance from him, otherwise he is quite aggressive. REVIEW OF SYSTEMS: No CV, , pulmonary, eye, ENT system symptoms on review. Tremors are better, consequent to Parkinson's. MENTAL STATUS EXAM: Oriented to himself. Insight, judgment, recent and remote memory, attention, concentration, fund of knowledge poor, consistent with his diagnosis mentioned in my initial note. PLAN: Increase Seroquel from 12.5 mg 3 times a day to 4 times a day. Maintain the rest unchanged as noted in my initial note. Adjust further as clinically indicated. Valproic acid level therapeutic at 85. MAN Mary WEAVER MD DR: MARIAM/piter JOB#: [id number] / [id number]
[2017-05-01 16:13] LABS: CALCIUM 9.1 mg/dL (8.5-10.1); CREATININE 0.9 mg/dL (0.7-1.3); GFR 84.7
--- NOTE | 2017-05-01 20:00 | PDOC ---
Exam Mj Demential Exam: Mj Note: Please also refer to the separate dictated note~for this date of service dictated separately.~Patient seen individually. Discussed the patient with Nursing staff reviewed the chart.~Reviewed interim history and current functioning. Reviewed vital signs,~Labs/ Radiology~and current medications noted below. Continue current treatment with the changes noted in the dictated addendum note Assessment: Vital Signs: Vital Signs Date Time Temp Pulse Resp B/P (MAP) Pulse Ox O2 Delivery O2 Flow Rate FiO2 05/01/17 05:59 45 16 94/50 (65) 04/30/17 16:36 97.8 98 04/26/17 06:29 Room Air I&O Intake and Output 05/01/17 07:00 Intake Total 1010 ml Balance 1010 ml Intake Oral 1010 ml # Voids 1 # Bowel Movements 1 Labs: Laboratory Tests Test 05/01/17 08:10 05/01/17 15:55 White Blood Count 5.4 x10^3/uL (4.0-11.0) Red Blood Count 4.20 x10^6/uL (4.30-5.70) L Hemoglobin 13.9 g/dL (13.0-17.5) Hematocrit 40.9 % (39.0-53.0) Mean Corpuscular Volume 97 fL (79-100) Mean Corpuscular Hemoglobin 33 pg (25-35) Mean Corpuscular Hemoglobin Concent 34 g/dL (31-37) Red Cell Distribution Width 13.7 % (11.5-14.5) Platelet Count 192 x10^3/uL (140-400) Neutrophils (%) (Auto) 56 % (31-73) Lymphocytes (%) (Auto) 34 % (24-48) Monocytes (%) (Auto) 8 % (0-9) Eosinophils (%) (Auto) 2 % (0-3) Basophils (%) (Auto) 1 % (0-3) Neutrophils # (Auto) 3.0 x10^3uL (1.8-7.7) Lymphocytes # (Auto) 1.8 x10^3/uL (1.0-4.8) Monocytes # (Auto) 0.4 x10^3/uL (0.0-1.1) Eosinophils # (Auto) 0.1 x10^3/uL (0.0-0.7) Basophils # (Auto) 0.0 x10^3/uL (0.0-0.2) Sodium Level 144 mmol/L (136-145) 142 mmol/L (136-145) Potassium Level 5.6 mmol/L (3.5-5.1) H 5.0 mmol/L (3.5-5.1) Chloride Level 105 mmol/L (98-107) 103 mmol/L (98-107) Carbon Dioxide Level 34 mmol/L (21-32) H 35 mmol/L (21-32) H Anion Gap 5 (6-14) L 4 (6-14) L Blood Urea Nitrogen 14 mg/dL (8-26) 15 mg/dL (8-26) Creatinine 0.9 mg/dL (0.7-1.3) 0.9 mg/dL (0.7-1.3) Estimated GFR (Cockcroft-Gault) 84.7 84.7 BUN/Creatinine Ratio 16 (6-20) Glucose Level 89 mg/dL (70-99) 117 mg/dL (70-99) H Calcium Level 9.1 mg/dL (8.5-10.1) 9.1 mg/dL (8.5-10.1) Total Bilirubin 0.3 mg/dL (0.2-1.0) Aspartate Amino Transferase (AST) 10 U/L (15-37) L Alanine Aminotransferase (ALT) 6 U/L (16-63) L Alkaline Phosphatase 53 U/L (46-116) Total Protein 6.0 g/dL (6.4-8.2) L Albumin 3.1 g/dL (3.4-5.0) L Albumin/Globulin Ratio 1.1 (1.0-1.7) Valproic Acid Level 75 mcg/mL (50-100) Valproic Acid Last Dose Date 04/30/17 Valproic Acid Last Dose Time 2100 Current Medications: Meds: Current Medications Acetaminophen (Tylenol) 650 mg PRN Q6HRS PRN PO PAIN / TEMP Last administered on 04/30/17t 18:52; Start 04/23/17 at 17:15 Multi-Ingredient Ointment (Analgesic [place]) 1 ana maría PRN QID PRN TP MUSCLE PAIN; Start 04/23/17 at 17:15 Al Hydroxide/Mg Hydroxide (Mylanta Plus Xs) 15 ml PRN AFTMEALHC PRN PO DYSPEPSIA; Start 04/23/17 at 17:15 Magnesium Hydroxide (Milk Of Magnesia) 2,400 mg PRN QHS PRN PO CONSTIPATION Last administered on 04/29/17 14:31; Start 04/23/17 at 17:15 Aripiprazole (Abilify) 10 mg DAILY PO Last administered on 04/24/17 08:44; Start 04/24/17 at 09:00; Stop 04/24/17 at 19:02; Status DC Divalproex Sodium (Depakote Sprinkles) 500 mg TID PO Last administered on 15:13; Start 04/23/17 at 21:00 Donepezil HCl (Aricept) 10 mg DAILY PO Last administered on 05/01/17 11:07; Start 04/24/17 at 09:00 Duloxetine HCl (Cymbalta) 60 mg DAILY PO Last administered on 05/01/17 11:06; Start 04/24/17 at 09:00 Lorazepam (Ativan) 0.5 mg PRN Q6HRS PRN TP ANXIETY / AGITATION Last administered on 04/30/17 03:08; Start 04/25/17 at 12:00 Lorazepam (Ativan) 0.5 mg PRN BID PRN PO ANXIETY / AGITATION; Start 04/23/17 at 18:00 Memantine (Namenda) 10 mg BID PO Last administered on 05/01/17 11:06; Start at 21:00 Quetiapine Fumarate (SEROquel) 25 mg PRN DAILY PRN PO PSYCHOSIS; Start 04/23/17 at 18:00 Acetaminophen (Tylenol) 650 mg PRN Q6HRS PRN PO PAIN / TEMP; Start 04/23/17 at 20:30; Status UNV Aspirin (Children'S Aspirin) 81 mg DAILY PO Last administered on 05/01/17 11: 07; Start 04/24/17 at 09:00 Bisacodyl (Dulcolax Supp) 10 mg PRN DAILY PRN RC CONSTIPATION; Start 04/23/17 at 20:30 Ketotifen Fumarate (Zaditor) 1 drop BID OU Last administered on 05/01/17 11:07 ; Start 04/23/17 at 21:00 Al Hydroxide/Mg Hydroxide (Mylanta Plus Xs) 15 ml PRN AFTMEALHC PRN PO DYSPEPSIA; Start 04/23/17 at 20:30; Status UNV Artificial Tears (Refresh Classic) 1 drop PRN QID PRN OD DRY EYE; Start at 20:45 Vitamin D (Vitamin D3) 4,000 unit DAILY PO Last administered on 05/01/17 11:05 ; Start 04/24/17 at 09:00 Non-Formulary Medication 2,400 mg PRN QHS PRN PO CONSTIPATION; Start 04/23/17 at 20:30; Status UNV Fluticasone Propionate (Flonase) 2 spray DAILY NS Last administered on 11:07; Start 04/24/17 at 09:00 Olanzapine (ZyPREXA ZYDIS) 2.5 mg PRN Q2HR PRN PO PSYCHOSIS Last administered on 05/01/17 16:42; Start 04/24/17 at 08:00 Carbidopa/Levodopa (Sinemet Cr) 1 tab.sa TID PO Last administered on 05/01/17 15:13; Start 04/24/17 at 21:00 Atorvastatin Calcium (Lipitor) 20 mg QHS PO Last administered on 04/30/17 19: 23; Start 04/25/17 at 21:00 Quetiapine Fumarate (SEROquel) 12.5 mg BID92 PO Last administered on 04/27/17 15:12; Start 04/26/17 at 09:00; Stop 04/27/17 at 19:24; Status DC Benztropine Mesylate (Cogentin) 0.5 mg BID PO Last administered on 05/01/17 11 :07; Start 04/26/17 at 21:00 Quetiapine Fumarate (SEROquel) 12.5 mg TID@0900,1400,1800 PO Last administered on 04/29/17 18:08; Start 04/28/17 at 09:00; Stop 04/29/17 at 18:15; Status DC Quetiapine Fumarate (SEROquel) 12.5 mg QID PO Last administered on 05/01/17 16 :42; Start 04/29/17 at 21:00; Stop 05/01/17 at 18:33; Status DC Quetiapine Fumarate (SEROquel) 12.5 mg BID@0900,2100 PO ; Start 05/01/17 at 21: 00 Quetiapine Fumarate (SEROquel) 25 mg BID@1300,1700 PO ; Start 05/02/17 at 13:00 Active Scripts Active Reported Nasacort (Triamcinolone Acetonide) 10.8 Ml [place] 2 Sprays NS DAILY [place] (Ketotifen Fumarate) 10 Ml Drops 1 Drop EACHEYE BID Bisacodyl 10 Mg Supp.rect 10 Mg RC PRN DAILY PRN Benadryl (Diphenhydramine Hcl) 25 Mg Capsule 12.5 Mg PO PRN BID PRN Refresh Tears (Carboxymethylcellulose Sodium) 15 Ml Drops 1 Drop OD PRN QID PRN Lorazepam 0.5 Mg Tablet 0.5 Mg TP PRN Q6HRS PRN Seroquel (Quetiapine Fumarate) 25 Mg Tablet 25 Mg PO PRN DAILY PRN Aspirin 81 Mg Tab.chew 81 Mg PO DAILY Maalox Maximum Strength Susp (Mag Hydrox/Al Hydrox/Simeth) 355 Ml Oral.susp 15 Ml PO PRN AFTMEALHC PRN Milk Of Magnesia (Magnesium Hydroxide) 2,400 Mg/10 Ml Oral.susp 2,400 Mg PO PRN QHS PRN Tylenol (Acetaminophen) 325 Mg Tablet 650 Mg PO PRN Q6HRS PRN Cymbalta (Duloxetine Hcl) 60 Mg Capsule.dr 60 Mg PO DAILY DO NOT CRUSH OR CHEW Vitamin D3 (Cholecalciferol (Vitamin D3)) 5,000 Unit Tablet 4,000 Unit PO DAILY Abilify (Aripiprazole) 5 Mg Tablet 10 Mg PO DAILY Loratadine 10 Mg Tablet 10 Mg PO DAILY Ativan (Lorazepam) 1 Mg Tablet 0.5 Mg PO BID PRN Namenda (Memantine Hcl) 10 Mg Tablet 10 Mg PO BID Aricept (Donepezil Hcl) 10 Mg Tablet 10 Mg PO DAILY Depakote Sprinkle (Divalproex Sodium) 125 Mg Cap.sprink 500 Mg PO TID GIVE WITH FOOD. Diagnosis: Problems: (1) Anxiety disorder (2) Impulse control disorder (3) Dementia, vascular, with depression (4) Dementia, vascular, with delusions (5) Dementia in Alzheimer's disease with depression (6) Dementia in Alzheimer's disease with delusions ISACC WEAVER MD May 01, 2017 20:00
[2017-05-01] MEDS: ATORVASTATIN CALCIUM 20 MG TABLET PO SCH (20:01)
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
[2017-05-02] MEDS: LORazepam TOPICAL 0.5 MG/ML GEL TP PRN ×2 (00:07→22:21)
[2017-05-02 06:18] VITALS: BP 126/54
[2017-05-02] MEDS: DONEPEZIL HCL 10 MG TABLET PO SCH (11:39)
[2017-05-02] MEDS: DULoxetine HCL 60 MG CAPSULE.DR PO SCH (11:39)
[2017-05-02] MEDS: CHOLECALCIFEROL (VITAMIN D3) 1,000 UNIT TABLET PO SCH (11:39)
[2017-05-02] MEDS: CARBIDOPA/LEVODOPA CR 25/100MG TABLET.SA PO SCH ×3 (11:39→19:38)
[2017-05-02] MEDS: BENZTROPINE MESYLATE 0.5 MG TABLET PO SCH ×2 (11:39→19:38)
[2017-05-02] MEDS: FLUTICASONE 50MCG/NASAL SPRAY 16GM BOTTLE. NS SCH (11:40)
[2017-05-02] MEDS: DIVALPROEX 125 MG CAP.SPRINK PO SCH ×3 (11:40→19:38)
[2017-05-02] MEDS: QUEtiapine 25 MG TABLET. PO SCH ×4 (11:40→19:39)
[2017-05-02] MEDS: MEMANTINE 10 MG TABLET. PO SCH ×2 (11:40→19:38)
[2017-05-02] MEDS: ASPIRIN 81 MG TAB.CHEW PO SCH (11:40)
[2017-05-02] MEDS: KETOTIFEN FUMARATE 0.025% OPHT SOLUTION BOTTLE. OU SCH ×2 (11:40→19:49)
[2017-05-02 16:48] VITALS: BP 93/58
[2017-05-02] MEDS: ATORVASTATIN CALCIUM 20 MG TABLET PO SCH (19:38)
--- NOTE | 2017-05-02 20:06 | PDOC ---
Exam Mj Demential Exam: Mj Note: Please also refer to the separate dictated note~for this date of service dictated separately.~Patient seen individually. Discussed the patient with Nursing staff reviewed the chart.~Reviewed interim history and current functioning. Reviewed vital signs,~Labs/ Radiology~and current medications noted below. Continue current treatment with the changes noted in the dictated addendum note Assessment: Vital Signs: Vital Signs Date Time Temp Pulse Resp B/P (MAP) Pulse Ox O2 Delivery O2 Flow Rate FiO2 05/02/17 16:48 98.3 59 18 93/58 (70) 100 I&O Intake and Output 05/02/17 07:00 Intake Total 840 ml Balance 840 ml Intake Oral 840 ml # Voids 1 Current Medications: Meds: Current Medications Acetaminophen (Tylenol) 650 mg PRN Q6HRS PRN PO PAIN / TEMP Last administered on 04/30/17 18:52; Start 04/23/17 at 17:15 Multi-Ingredient Ointment (Analgesic [place]) 1 ana maría PRN QID PRN TP MUSCLE PAIN; Start 04/23/17 at 17:15 Al Hydroxide/Mg Hydroxide (Mylanta Plus Xs) 15 ml PRN AFTMEALHC PRN PO DYSPEPSIA; Start 04/23/17 at 17:15 Magnesium Hydroxide (Milk Of Magnesia) 2,400 mg PRN QHS PRN PO CONSTIPATION Last administered on 04/29/17 14:31; Start 04/23/17 at 17:15 Aripiprazole (Abilify) 10 mg DAILY PO Last administered on 04/24/17 08:44; Start 04/24/17 at 09:00; Stop 04/24/17 at 19:02; Status DC Divalproex Sodium (Depakote Sprinkles) 500 mg TID PO Last administered on 19:38; Start 04/23/17 at 21:00 Donepezil HCl (Aricept) 10 mg DAILY PO Last administered on 05/02/17 11:39; Start 04/24/17 at 09:00 Duloxetine HCl (Cymbalta) 60 mg DAILY PO Last administered on 05/02/17 11:39; Start 04/24/17 at 09:00 Lorazepam (Ativan) 0.5 mg PRN Q6HRS PRN TP ANXIETY / AGITATION Last administered on 05/02/17 00:07; Start 04/25/17 at 12:00 Lorazepam (Ativan) 0.5 mg PRN BID PRN PO ANXIETY / AGITATION; Start 04/23/17 at 18:00 Memantine (Namenda) 10 mg BID PO Last administered on 05/02/17 19:38; Start at 21:00 Quetiapine Fumarate (SEROquel) 25 mg PRN DAILY PRN PO PSYCHOSIS; Start 04/23/17 at 18:00 Acetaminophen (Tylenol) 650 mg PRN Q6HRS PRN PO PAIN / TEMP; Start 04/23/17 at 20:30; Status UNV Aspirin (Children'S Aspirin) 81 mg DAILY PO Last administered on 05/02/17 11: 40; Start 04/24/17 at 09:00 Bisacodyl (Dulcolax Supp) 10 mg PRN DAILY PRN RC CONSTIPATION; Start 04/23/17 at 20:30 Ketotifen Fumarate (Zaditor) 1 drop BID OU Last administered on 05/02/17 19:49 ; Start 04/23/17 at 21:00 Al Hydroxide/Mg Hydroxide (Mylanta Plus Xs) 15 ml PRN AFTMEALHC PRN PO DYSPEPSIA; Start 04/23/17 at 20:30; Status UNV Artificial Tears (Refresh Classic) 1 drop PRN QID PRN OD DRY EYE; Start at 20:45 Vitamin D (Vitamin D3) 4,000 unit DAILY PO Last administered on 05/02/17 11:39 ; Start 04/24/17 at 09:00 Non-Formulary Medication 2,400 mg PRN QHS PRN PO CONSTIPATION; Start 04/23/17 at 20:30; Status UNV Fluticasone Propionate (Flonase) 2 spray DAILY NS Last administered on 11:07; Start 04/24/17 at 09:00 Olanzapine (ZyPREXA ZYDIS) 2.5 mg PRN Q2HR PRN PO PSYCHOSIS Last administered on 05/02/17 17:15; Start 04/24/17 at 08:00 Carbidopa/Levodopa (Sinemet Cr) 1 tab.sa TID PO Last administered on 05/02/17 19:38; Start 04/24/17 at 21:00 Atorvastatin Calcium (Lipitor) 20 mg QHS PO Last administered on 05/02/17 19: 38; Start 04/25/17 at 21:00 Quetiapine Fumarate (SEROquel) 12.5 mg BID92 PO Last administered on 04/27/17 15:12; Start 04/26/17 at 09:00; Stop 04/27/17 at 19:24; Status DC Benztropine Mesylate (Cogentin) 0.5 mg BID PO Last administered on 05/02/17 19 :38; Start 04/26/17 at 21:00 Quetiapine Fumarate (SEROquel) 12.5 mg TID@0900,1400,1800 PO Last administered on 04/29/17 18:08; Start 04/28/17 at 09:00; Stop 04/29/17 at 18:15; Status DC Quetiapine Fumarate (SEROquel) 12.5 mg QID PO Last administered on 05/01/17 16 :42; Start 04/29/17 at 21:00; Stop 05/01/17 at 18:33; Status DC Quetiapine Fumarate (SEROquel) 12.5 mg BID@0900,2100 PO Last administered on 11:40; Start 05/01/17 at 21:00; Stop 05/02/17 at 18:32; Status DC Quetiapine Fumarate (SEROquel) 25 mg BID@1300,1700 PO Last administered on 05/02 16:58; Start 05/02/17 at 13:00; Stop 05/02/17 at 18:32; Status DC Quetiapine Fumarate (SEROquel) 25 mg QID PO Last administered on 05/02/17 19: 39; Start 05/02/17 at 21:00 Active Scripts Active Reported Nasacort (Triamcinolone Acetonide) 10.8 Ml [place] 2 Sprays NS DAILY [place] (Ketotifen Fumarate) 10 Ml Drops 1 Drop EACHEYE BID Bisacodyl 10 Mg Supp.rect 10 Mg RC PRN DAILY PRN Benadryl (Diphenhydramine Hcl) 25 Mg Capsule 12.5 Mg PO PRN BID PRN Refresh Tears (Carboxymethylcellulose Sodium) 15 Ml Drops 1 Drop OD PRN QID PRN Lorazepam 0.5 Mg Tablet 0.5 Mg TP PRN Q6HRS PRN Seroquel (Quetiapine Fumarate) 25 Mg Tablet 25 Mg PO PRN DAILY PRN Aspirin 81 Mg Tab.chew 81 Mg PO DAILY Maalox Maximum Strength Susp (Mag Hydrox/Al Hydrox/Simeth) 355 Ml Oral.susp 15 Ml PO PRN AFTMEALHC PRN Milk Of Magnesia (Magnesium Hydroxide) 2,400 Mg/10 Ml Oral.susp 2,400 Mg PO PRN QHS PRN Tylenol (Acetaminophen) 325 Mg Tablet 650 Mg PO PRN Q6HRS PRN Cymbalta (Duloxetine Hcl) 60 Mg Capsule.dr 60 Mg PO DAILY DO NOT CRUSH OR CHEW Vitamin D3 (Cholecalciferol (Vitamin D3)) 5,000 Unit Tablet 4,000 Unit PO DAILY Abilify (Aripiprazole) 5 Mg Tablet 10 Mg PO DAILY Loratadine 10 Mg Tablet 10 Mg PO DAILY Ativan (Lorazepam) 1 Mg Tablet 0.5 Mg PO BID PRN Namenda (Memantine Hcl) 10 Mg Tablet 10 Mg PO BID Aricept (Donepezil Hcl) 10 Mg Tablet 10 Mg PO DAILY Depakote Sprinkle (Divalproex Sodium) 125 Mg Cap.sprink 500 Mg PO TID GIVE WITH FOOD. Diagnosis: Problems: (1) Anxiety disorder (2) Impulse control disorder (3) Dementia, vascular, with depression (4) Dementia, vascular, with delusions (5) Dementia in Alzheimer's disease with depression (6) Dementia in Alzheimer's disease with delusions ISACC WEAVER MD May 02, 2017 20:05
--- NOTE | 2017-05-03 03:07 | PN ---
DATE: 05/01/2017 This late entry at 05/01/2017 covers elements not covered in my initial note of 05/01/2017. SUBJECTIVE: The patient was staffed at a treatment team meeting with the entire team morning 05/01/2017, seen individually evening of 05/01/2017. He has been agitated, intermittently aggressive, tried to punch a staff, was twisting the arm of a female staff member assisting him. Another demented patient had to hold his arm before he connected with a staff member. Received Zyprexa p.r.n. 1645. REVIEW OF SYSTEMS: No CV, , pulmonary, eye, ENT system symptoms on review. Reliability poor. MENTAL STATUS EXAM: Oriented to self. Insight, judgment, recent and remote memory, attention, concentration, fund of knowledge poor, consistent with his diagnosis mentioned in my initial note. PLAN: Currently, Seroquel is 12.5 mg 4 times a day. We will continue with the 12.5 at 9:00 a.m. and 9 p.m. and increase the 2 p.m. and 6 p.m. Seroquel dosages to 25 except we will give the 2:00 p.m. at 1:00 p.m. and 6 p.m. at 5:00 p.m. to help time it with the times he gets more agitated, aggressive. Rest reviewed drug interactions risk/benefit ratio favors no further change at this time. ISACC WEAVER MD DR: MARIAM/piter JOB#: [id number] / [id number]
[2017-05-03 06:17] VITALS: BP 103/55
[2017-05-03] MEDS: FLUTICASONE 50MCG/NASAL SPRAY 16GM BOTTLE. NS SCH (10:53)
[2017-05-03] MEDS: KETOTIFEN FUMARATE 0.025% OPHT SOLUTION BOTTLE. OU SCH ×2 (11:01→20:18)
[2017-05-03] MEDS: DONEPEZIL HCL 10 MG TABLET PO SCH (11:01)
[2017-05-03] MEDS: DIVALPROEX 125 MG CAP.SPRINK PO SCH ×3 (11:02→20:18)
[2017-05-03] MEDS: MEMANTINE 10 MG TABLET. PO SCH ×2 (11:02→20:19)
[2017-05-03] MEDS: ASPIRIN 81 MG TAB.CHEW PO SCH (11:02)
[2017-05-03] MEDS: DULoxetine HCL 60 MG CAPSULE.DR PO SCH (11:02)
[2017-05-03] MEDS: CARBIDOPA/LEVODOPA CR 25/100MG TABLET.SA PO SCH ×3 (11:02→20:19)
[2017-05-03] MEDS: BENZTROPINE MESYLATE 0.5 MG TABLET PO SCH (11:02)
[2017-05-03] MEDS: QUEtiapine 25 MG TABLET. PO SCH ×4 (11:02→20:18)
[2017-05-03] MEDS: CHOLECALCIFEROL (VITAMIN D3) 1,000 UNIT TABLET PO SCH (11:03)
[2017-05-03] MEDS: ATORVASTATIN CALCIUM 20 MG TABLET PO SCH (20:19)
[2017-05-03] MEDS: BENZTROPINE MESYLATE 1 MG TABLET PO SCH (20:21)
--- NOTE | 2017-05-03 21:50 | PN ---
DATE: 05/02/2017 This late entry 05/02/2017 covers elements not covered in my initial note. SUBJECTIVE: I met with the patient in the evening of 05/02/2017. Around 12:45 p.m., he was aggressive, trying to strike out at nursing staff and aids. Got Zyprexa p.r.n. at 12:45 and 5 p.m. REVIEW OF SYSTEMS: No CV, , pulmonary, eye, ENT system symptoms on review. Reliability poor. MENTAL STATUS EXAM: Oriented to himself. Insight, judgment, recent and remote memory, attention, concentration, fund of knowledge poor, consistent with his diagnosis appears somewhat paranoid, was walking behind me after our visit, as I was leaving somewhat suspicious. IMPRESSION: Unchanged from initial note. PLAN: Increase Seroquel, which is currently 25 mg b.i.d. and 12.5 mg b.i.d. We will increase it to 25 mg 4 times a day. Maintain the rest of his psychotropics including Depakote. Valproic acid level therapeutic at 71. Reviewed drug interactions. Risk/benefit ratio favors no further change as of now. MAN Mary WEAVER MD DR: MARIAM/piter JOB#: [id number] / [id number]
--- NOTE | 2017-05-03 23:31 | PDOC ---
Exam Mj Demential Exam: Jm Note: Please also refer to the separate dictated note~for this date of service dictated separately.~Patient seen individually. Discussed the patient with Nursing staff reviewed the chart.~Reviewed interim history and current functioning. Reviewed vital signs,~Labs/ Radiology~and current medications noted below. Continue current treatment with the changes noted in the dictated addendum note Assessment: Vital Signs: Vital Signs Date Time Temp Pulse Resp B/P (MAP) Pulse Ox O2 Delivery O2 Flow Rate FiO2 05/03/17 06:17 96.9 63 20 103/55 (71) 95 I&O Intake and Output 05/03/17 07:00 Intake Total 1545 ml Balance 1545 ml Intake Oral 1545 ml # Voids 1 Current Medications: Meds: Current Medications Acetaminophen (Tylenol) 650 mg PRN Q6HRS PRN PO PAIN / TEMP Last administered on 04/30/17 18:52; Start 04/23/17 at 17:15 Multi-Ingredient Ointment (Analgesic [place]) 1 ana maría PRN QID PRN TP MUSCLE PAIN; Start 04/23/17 at 17:15 Al Hydroxide/Mg Hydroxide (Mylanta Plus Xs) 15 ml PRN AFTMEALHC PRN PO DYSPEPSIA; Start 04/23/17 at 17:15 Magnesium Hydroxide (Milk Of Magnesia) 2,400 mg PRN QHS PRN PO CONSTIPATION Last administered on 04/29/17 14:31; Start 04/23/17 at 17:15 Aripiprazole (Abilify) 10 mg DAILY PO Last administered on 04/24/17 08:44; Start 04/24/17 at 09:00; Stop 04/24/17 at 19:02; Status DC Divalproex Sodium (Depakote Sprinkles) 500 mg TID PO Last administered on 20:18; Start 04/23/17 at 21:00 Donepezil HCl (Aricept) 10 mg DAILY PO Last administered on 05/03/17 11:01; Start 04/24/17 at 09:00 Duloxetine HCl (Cymbalta) 60 mg DAILY PO Last administered on 05/03/17 11:02; Start 04/24/17 at 09:00 Lorazepam (Ativan) 0.5 mg PRN Q6HRS PRN TP ANXIETY / AGITATION Last administered on 05/02/17 22:21; Start 04/25/17 at 12:00 Lorazepam (Ativan) 0.5 mg PRN BID PRN PO ANXIETY / AGITATION; Start 04/23/17 at 18:00 Memantine (Namenda) 10 mg BID PO Last administered on 05/03/17 20:19; Start at 21:00 Quetiapine Fumarate (SEROquel) 25 mg PRN DAILY PRN PO PSYCHOSIS; Start 04/23/17 at 18:00 Acetaminophen (Tylenol) 650 mg PRN Q6HRS PRN PO PAIN / TEMP; Start 04/23/17 at 20:30; Status UNV Aspirin (Children'S Aspirin) 81 mg DAILY PO Last administered on 05/03/17 11: 02; Start 04/24/17 at 09:00 Bisacodyl (Dulcolax Supp) 10 mg PRN DAILY PRN RC CONSTIPATION; Start 04/23/17 at 20:30 Ketotifen Fumarate (Zaditor) 1 drop BID OU Last administered on 05/03/17 20:18 ; Start 04/23/17 at 21:00 Al Hydroxide/Mg Hydroxide (Mylanta Plus Xs) 15 ml PRN AFTMEALHC PRN PO DYSPEPSIA; Start 04/23/17 at 20:30; Status UNV Artificial Tears (Refresh Classic) 1 drop PRN QID PRN OD DRY EYE; Start at 20:45 Vitamin D (Vitamin D3) 4,000 unit DAILY PO Last administered on 05/03/17 11:03 ; Start 04/24/17 at 09:00 Non-Formulary Medication 2,400 mg PRN QHS PRN PO CONSTIPATION; Start 04/23/17 at 20:30; Status UNV Fluticasone Propionate (Flonase) 2 spray DAILY NS Last administered on 11:07; Start 04/24/17 at 09:00 Olanzapine (ZyPREXA ZYDIS) 2.5 mg PRN Q2HR PRN PO PSYCHOSIS Last administered on 05/02/17 17:15; Start 04/24/17 at 08:00 Carbidopa/Levodopa (Sinemet Cr) 1 tab.sa TID PO Last administered on 05/03/17 20:19; Start 04/24/17 at 21:00 Atorvastatin Calcium (Lipitor) 20 mg QHS PO Last administered on 05/03/17 20: 19; Start 04/25/17 at 21:00 Quetiapine Fumarate (SEROquel) 12.5 mg BID92 PO Last administered on 04/27/17 15:12; Start 04/26/17 at 09:00; Stop 04/27/17 at 19:24; Status DC Benztropine Mesylate (Cogentin) 0.5 mg BID PO Last administered on 05/03/17 11 :02; Start 04/26/17 at 21:00; Stop 05/03/17 at 14:31; Status DC Quetiapine Fumarate (SEROquel) 12.5 mg TID@0900,1400,1800 PO Last administered on 04/29/17 18:08; Start 04/28/17 at 09:00; Stop 04/29/17 at 18:15; Status DC Quetiapine Fumarate (SEROquel) 12.5 mg QID PO Last administered on 05/01/17 16 :42; Start 04/29/17 at 21:00; Stop 05/01/17 at 18:33; Status DC Quetiapine Fumarate (SEROquel) 12.5 mg BID@0900,2100 PO Last administered on 11:40; Start 05/01/17 at 21:00; Stop 05/02/17 at 18:32; Status DC Quetiapine Fumarate (SEROquel) 25 mg BID@1300,1700 PO Last administered on 05/02 16:58; Start 05/02/17 at 13:00; Stop 05/02/17 at 18:32; Status DC Quetiapine Fumarate (SEROquel) 25 mg QID PO Last administered on 05/03/17 20: 18; Start 05/02/17 at 21:00 Benztropine Mesylate (Cogentin) 1 mg BID PO Last administered on 05/03/17 20: 21; Start 05/03/17 at 21:00 Active Scripts Active Reported Nasacort (Triamcinolone Acetonide) 10.8 Ml [place] 2 Sprays NS DAILY [place] (Ketotifen Fumarate) 10 Ml Drops 1 Drop EACHEYE BID Bisacodyl 10 Mg Supp.rect 10 Mg RC PRN DAILY PRN Benadryl (Diphenhydramine Hcl) 25 Mg Capsule 12.5 Mg PO PRN BID PRN Refresh Tears (Carboxymethylcellulose Sodium) 15 Ml Drops 1 Drop OD PRN QID PRN Lorazepam 0.5 Mg Tablet 0.5 Mg TP PRN Q6HRS PRN Seroquel (Quetiapine Fumarate) 25 Mg Tablet 25 Mg PO PRN DAILY PRN Aspirin 81 Mg Tab.chew 81 Mg PO DAILY Maalox Maximum Strength Susp (Mag Hydrox/Al Hydrox/Simeth) 355 Ml Oral.susp 15 Ml PO PRN AFTMEALHC PRN Milk Of Magnesia (Magnesium Hydroxide) 2,400 Mg/10 Ml Oral.susp 2,400 Mg PO PRN QHS PRN Tylenol (Acetaminophen) 325 Mg Tablet 650 Mg PO PRN Q6HRS PRN Cymbalta (Duloxetine Hcl) 60 Mg Capsule.dr 60 Mg PO DAILY DO NOT CRUSH OR CHEW Vitamin D3 (Cholecalciferol (Vitamin D3)) 5,000 Unit Tablet 4,000 Unit PO DAILY Abilify (Aripiprazole) 5 Mg Tablet 10 Mg PO DAILY Loratadine 10 Mg Tablet 10 Mg PO DAILY Ativan (Lorazepam) 1 Mg Tablet 0.5 Mg PO BID PRN Namenda (Memantine Hcl) 10 Mg Tablet 10 Mg PO BID Aricept (Donepezil Hcl) 10 Mg Tablet 10 Mg PO DAILY Depakote Sprinkle (Divalproex Sodium) 125 Mg Cap.sprink 500 Mg PO TID GIVE WITH FOOD. Diagnosis: Problems: (1) Anxiety disorder (2) Impulse control disorder (3) Dementia, vascular, with depression (4) Dementia, vascular, with delusions (5) Dementia in Alzheimer's disease with depression (6) Dementia in Alzheimer's disease with delusions ISACC WEAVER MD May 03, 2017 23:31
[2017-05-04 05:49] VITALS: BP 118/70
[2017-05-04] MEDS: KETOTIFEN FUMARATE 0.025% OPHT SOLUTION BOTTLE. OU SCH ×2 (08:39→19:43)
[2017-05-04] MEDS: BENZTROPINE MESYLATE 1 MG TABLET PO SCH ×2 (08:39→19:43)
[2017-05-04] MEDS: DONEPEZIL HCL 10 MG TABLET PO SCH (08:39)
[2017-05-04] MEDS: ASPIRIN 81 MG TAB.CHEW PO SCH (08:39)
[2017-05-04] MEDS: FLUTICASONE 50MCG/NASAL SPRAY 16GM BOTTLE. NS SCH (08:39)
[2017-05-04] MEDS: DULoxetine HCL 60 MG CAPSULE.DR PO SCH (08:39)
[2017-05-04] MEDS: QUEtiapine 25 MG TABLET. PO SCH ×4 (08:40→19:42)
[2017-05-04] MEDS: MEMANTINE 10 MG TABLET. PO SCH ×2 (08:40→19:42)
[2017-05-04] MEDS: CHOLECALCIFEROL (VITAMIN D3) 1,000 UNIT TABLET PO SCH (08:40)
[2017-05-04] MEDS: DIVALPROEX 125 MG CAP.SPRINK PO SCH ×3 (08:40→19:43)
[2017-05-04] MEDS: CARBIDOPA/LEVODOPA CR 25/100MG TABLET.SA PO SCH ×3 (08:41→19:42)
[2017-05-04 16:26] VITALS: BP 91/55
[2017-05-04] MEDS: ATORVASTATIN CALCIUM 20 MG TABLET PO SCH (19:43)
--- NOTE | 2017-05-04 19:59 | PDOC ---
Exam Mj Demential Exam: Mj Note: Please also refer to the separate dictated note~for this date of service dictated separately.~Patient seen individually. Discussed the patient with Nursing staff reviewed the chart.~Reviewed interim history and current functioning. Reviewed vital signs,~Labs/ Radiology~and current medications noted below. Continue current treatment with the changes noted in the dictated addendum note Assessment: Vital Signs: Vital Signs Date Time Temp Pulse Resp B/P (MAP) Pulse Ox O2 Delivery O2 Flow Rate FiO2 05/04/17 16:26 97.8 87 20 91/55 (67) 97 Room Air I&O Intake and Output 05/04/17 07:00 Intake Total 700 ml Balance 700 ml Intake Oral 700 ml # Voids 1 Current Medications: Meds: Current Medications Acetaminophen (Tylenol) 650 mg PRN Q6HRS PRN PO PAIN / TEMP Last administered on 04/30/17 18:52; Start 04/23/17 at 17:15 Multi-Ingredient Ointment (Analgesic [place]) 1 ana maría PRN QID PRN TP MUSCLE PAIN; Start 04/23/17 at 17:15 Al Hydroxide/Mg Hydroxide (Mylanta Plus Xs) 15 ml PRN AFTMEALHC PRN PO DYSPEPSIA; Start 04/23/17 at 17:15 Magnesium Hydroxide (Milk Of Magnesia) 2,400 mg PRN QHS PRN PO CONSTIPATION Last administered on 04/29/17 14:31; Start 04/23/17 at 17:15 Aripiprazole (Abilify) 10 mg DAILY PO Last administered on 04/24/17 08:44; Start 04/24/17 at 09:00; Stop 04/24/17 at 19:02; Status DC Divalproex Sodium (Depakote Sprinkles) 500 mg TID PO Last administered on 19:43; Start 04/23/17 at 21:00 Donepezil HCl (Aricept) 10 mg DAILY PO Last administered on 05/04/17 08:39; Start 04/24/17 at 09:00 Duloxetine HCl (Cymbalta) 60 mg DAILY PO Last administered on 05/04/17 08:39; Start 04/24/17 at 09:00 Lorazepam (Ativan) 0.5 mg PRN Q6HRS PRN TP ANXIETY / AGITATION Last administered on 05/02/17 22:21; Start 04/25/17 at 12:00 Lorazepam (Ativan) 0.5 mg PRN BID PRN PO ANXIETY / AGITATION; Start 04/23/17 at 18:00 Memantine (Namenda) 10 mg BID PO Last administered on 05/04/17 19:42; Start at 21:00 Quetiapine Fumarate (SEROquel) 25 mg PRN DAILY PRN PO PSYCHOSIS; Start 04/23/17 at 18:00 Acetaminophen (Tylenol) 650 mg PRN Q6HRS PRN PO PAIN / TEMP; Start 04/23/17 at 20:30; Status UNV Aspirin (Children'S Aspirin) 81 mg DAILY PO Last administered on 05/04/17 08: 39; Start 04/24/17 at 09:00 Bisacodyl (Dulcolax Supp) 10 mg PRN DAILY PRN RC CONSTIPATION; Start 04/23/17 at 20:30 Ketotifen Fumarate (Zaditor) 1 drop BID OU Last administered on 05/04/17 19:43 ; Start 04/23/17 at 21:00 Al Hydroxide/Mg Hydroxide (Mylanta Plus Xs) 15 ml PRN AFTMEALHC PRN PO DYSPEPSIA; Start 04/23/17 at 20:30; Status UNV Artificial Tears (Refresh Classic) 1 drop PRN QID PRN OD DRY EYE; Start at 20:45 Vitamin D (Vitamin D3) 4,000 unit DAILY PO Last administered on 05/04/17 08:40 ; Start 04/24/17 at 09:00 Non-Formulary Medication 2,400 mg PRN QHS PRN PO CONSTIPATION; Start 04/23/17 at 20:30; Status UNV Fluticasone Propionate (Flonase) 2 spray DAILY NS Last administered on 11:07; Start 04/24/17 at 09:00 Olanzapine (ZyPREXA ZYDIS) 2.5 mg PRN Q2HR PRN PO PSYCHOSIS Last administered on 05/02/17 17:15; Start 04/24/17 at 08:00 Carbidopa/Levodopa (Sinemet Cr) 1 tab.sa TID PO Last administered on 05/04/17 19:42; Start 04/24/17 at 21:00 Atorvastatin Calcium (Lipitor) 20 mg QHS PO Last administered on 05/04/17 19: 43; Start 04/25/17 at 21:00 Quetiapine Fumarate (SEROquel) 12.5 mg BID92 PO Last administered on 04/27/17 15:12; Start 04/26/17 at 09:00; Stop 04/27/17 at 19:24; Status DC Benztropine Mesylate (Cogentin) 0.5 mg BID PO Last administered on 05/03/17 11 :02; Start 04/26/17 at 21:00; Stop 05/03/17 at 14:31; Status DC Quetiapine Fumarate (SEROquel) 12.5 mg TID@0900,1400,1800 PO Last administered on 04/29/17 18:08; Start 04/28/17 at 09:00; Stop 04/29/17 at 18:15; Status DC Quetiapine Fumarate (SEROquel) 12.5 mg QID PO Last administered on 05/01/17 16 :42; Start 04/29/17 at 21:00; Stop 05/01/17 at 18:33; Status DC Quetiapine Fumarate (SEROquel) 12.5 mg BID@0900,2100 PO Last administered on 11:40; Start 05/01/17 at 21:00; Stop 05/02/17 at 18:32; Status DC Quetiapine Fumarate (SEROquel) 25 mg BID@1300,1700 PO Last administered on 05/02 16:58; Start 05/02/17 at 13:00; Stop 05/02/17 at 18:32; Status DC Quetiapine Fumarate (SEROquel) 25 mg QID PO Last administered on 05/04/17 19: 42; Start 05/02/17 at 21:00 Benztropine Mesylate (Cogentin) 1 mg BID PO Last administered on 05/04/17 19: 43; Start 05/03/17 at 21:00 Active Scripts Active Reported Nasacort (Triamcinolone Acetonide) 10.8 Ml [place] 2 Sprays NS DAILY [place] (Ketotifen Fumarate) 10 Ml Drops 1 Drop EACHEYE BID Bisacodyl 10 Mg Supp.rect 10 Mg RC PRN DAILY PRN Benadryl (Diphenhydramine Hcl) 25 Mg Capsule 12.5 Mg PO PRN BID PRN Refresh Tears (Carboxymethylcellulose Sodium) 15 Ml Drops 1 Drop OD PRN QID PRN Lorazepam 0.5 Mg Tablet 0.5 Mg TP PRN Q6HRS PRN Seroquel (Quetiapine Fumarate) 25 Mg Tablet 25 Mg PO PRN DAILY PRN Aspirin 81 Mg Tab.chew 81 Mg PO DAILY Maalox Maximum Strength Susp (Mag Hydrox/Al Hydrox/Simeth) 355 Ml Oral.susp 15 Ml PO PRN AFTMEALHC PRN Milk Of Magnesia (Magnesium Hydroxide) 2,400 Mg/10 Ml Oral.susp 2,400 Mg PO PRN QHS PRN Tylenol (Acetaminophen) 325 Mg Tablet 650 Mg PO PRN Q6HRS PRN Cymbalta (Duloxetine Hcl) 60 Mg Capsule.dr 60 Mg PO DAILY DO NOT CRUSH OR CHEW Vitamin D3 (Cholecalciferol (Vitamin D3)) 5,000 Unit Tablet 4,000 Unit PO DAILY Abilify (Aripiprazole) 5 Mg Tablet 10 Mg PO DAILY Loratadine 10 Mg Tablet 10 Mg PO DAILY Ativan (Lorazepam) 1 Mg Tablet 0.5 Mg PO BID PRN Namenda (Memantine Hcl) 10 Mg Tablet 10 Mg PO BID Aricept (Donepezil Hcl) 10 Mg Tablet 10 Mg PO DAILY Depakote Sprinkle (Divalproex Sodium) 125 Mg Cap.sprink 500 Mg PO TID GIVE WITH FOOD. Diagnosis: Problems: (1) Anxiety disorder (2) Impulse control disorder (3) Dementia, vascular, with depression (4) Dementia, vascular, with delusions (5) Dementia in Alzheimer's disease with depression (6) Dementia in Alzheimer's disease with delusions ISACC WEAVER MD May 04, 2017 19:59
--- NOTE | 2017-05-05 00:38 | PN ---
DATE: 05/03/2017 PSYCHIATRIC PROGRESS NOTE This is a late entry for 05/03/2017, covers elements not covered in my initial note. SUBJECTIVE: I met with the patient the evening of 05/03/2017. The patient remains confused. His is out of town until 05/04/2017. He was agitated and aggressive when he first woke up, then calmer, cooperative, compliant, wandering, and confused. REVIEW OF SYSTEMS: No CV, , pulmonary, eye, ENT system symptoms on review. Reliability poor. MENTAL STATUS EXAM: Oriented to himself. Insight, judgment, recent and remote memory, attention, concentration, fund of knowledge poor, consistent with his diagnosis mentioned in my initial note. PLAN: Reviewed drug interactions at length and risk/benefit ratio favors no further change. Continue Sinemet for Parkinson's, Aricept, Cymbalta, Depakote, Namenda, Seroquel p.r.n., Ativan p.r.n., Cogentin p.r.n. and scheduled Seroquel. Adjust further as clinically indicated. Valproic acid level therapeutic at 75. MAN Mary WEAVER MD DR: MARIAM/piter JOB#: [id number] / [id number]
[2017-05-05] MEDS: FLUTICASONE 50MCG/NASAL SPRAY 16GM BOTTLE. NS SCH (07:16)
[2017-05-05] MEDS: KETOTIFEN FUMARATE 0.025% OPHT SOLUTION BOTTLE. OU SCH ×2 (07:16→20:00)
[2017-05-05] MEDS: DONEPEZIL HCL 10 MG TABLET PO SCH (07:18)
[2017-05-05] MEDS: CHOLECALCIFEROL (VITAMIN D3) 1,000 UNIT TABLET PO SCH (07:19)
[2017-05-05] MEDS: BENZTROPINE MESYLATE 1 MG TABLET PO SCH ×2 (07:19→19:59)
[2017-05-05] MEDS: QUEtiapine 25 MG TABLET. PO SCH ×4 (07:19→20:01)
[2017-05-05] MEDS: DIVALPROEX 125 MG CAP.SPRINK PO SCH ×3 (07:19→20:00)
[2017-05-05] MEDS: DULoxetine HCL 60 MG CAPSULE.DR PO SCH (07:19)
[2017-05-05] MEDS: MEMANTINE 10 MG TABLET. PO SCH ×2 (07:19→20:00)
[2017-05-05] MEDS: ASPIRIN 81 MG TAB.CHEW PO SCH (07:19)
[2017-05-05] MEDS: CARBIDOPA/LEVODOPA CR 25/100MG TABLET.SA PO SCH ×3 (07:19→20:00)
[2017-05-05 16:09] VITALS: BP 106/78
--- NOTE | 2017-05-05 19:56 | PDOC ---
Exam Mj Demential Exam: Mj Note: Please also refer to the separate dictated note~for this date of service dictated separately.~Patient seen individually. Discussed the patient with Nursing staff reviewed the chart.~Reviewed interim history and current functioning. Reviewed vital signs,~Labs/ Radiology~and current medications noted below. Continue current treatment with the changes noted in the dictated addendum note Assessment: Vital Signs: Vital Signs Date Time Temp Pulse Resp B/P (MAP) Pulse Ox O2 Delivery O2 Flow Rate FiO2 05/05/17 16:09 97.2 74 18 106/78 (87) 95 05/04/17 16:26 Room Air I&O Intake and Output 05/05/17 06:59 Intake Total 600 ml Balance 600 ml Intake Oral 600 ml # Voids 1 # Bowel Movements 1 Current Medications: Meds: Current Medications Acetaminophen (Tylenol) 650 mg PRN Q6HRS PRN PO PAIN / TEMP Last administered on 04/30/17 18:52; Start 04/23/17 at 17:15 Multi-Ingredient Ointment (Analgesic [place]) 1 ana maría PRN QID PRN TP MUSCLE PAIN; Start 04/23/17 at 17:15 Al Hydroxide/Mg Hydroxide (Mylanta Plus Xs) 15 ml PRN AFTMEALHC PRN PO DYSPEPSIA; Start 04/23/17 at 17:15 Magnesium Hydroxide (Milk Of Magnesia) 2,400 mg PRN QHS PRN PO CONSTIPATION Last administered on 04/29/17 14:31; Start 04/23/17 at 17:15 Aripiprazole (Abilify) 10 mg DAILY PO Last administered on 04/24/17 08:44; Start 04/24/17 at 09:00; Stop 04/24/17 at 19:02; Status DC Divalproex Sodium (Depakote Sprinkles) 500 mg TID PO Last administered on 14:00; Start 04/23/17 at 21:00 Donepezil HCl (Aricept) 10 mg DAILY PO Last administered on 05/05/17 07:18; Start 04/24/17 at 09:00 Duloxetine HCl (Cymbalta) 60 mg DAILY PO Last administered on 05/05/17 07:19; Start 04/24/17 at 09:00 Lorazepam (Ativan) 0.5 mg PRN Q6HRS PRN TP ANXIETY / AGITATION Last administered on 05/02/17 22:21; Start 04/25/17 at 12:00 Lorazepam (Ativan) 0.5 mg PRN BID PRN PO ANXIETY / AGITATION; Start 04/23/17 at 18:00 Memantine (Namenda) 10 mg BID PO Last administered on 05/05/17 07:19; Start at 21:00 Quetiapine Fumarate (SEROquel) 25 mg PRN DAILY PRN PO PSYCHOSIS; Start 04/23/17 at 18:00 Acetaminophen (Tylenol) 650 mg PRN Q6HRS PRN PO PAIN / TEMP; Start 04/23/17 at 20:30; Status UNV Aspirin (Children'S Aspirin) 81 mg DAILY PO Last administered on 05/05/17 07: 19; Start 04/24/17 at 09:00 Bisacodyl (Dulcolax Supp) 10 mg PRN DAILY PRN RC CONSTIPATION; Start 04/23/17 at 20:30 Ketotifen Fumarate (Zaditor) 1 drop BID OU Last administered on 05/04/17 19:43 ; Start 04/23/17 at 21:00 Al Hydroxide/Mg Hydroxide (Mylanta Plus Xs) 15 ml PRN AFTMEALHC PRN PO DYSPEPSIA; Start 04/23/17 at 20:30; Status UNV Artificial Tears (Refresh Classic) 1 drop PRN QID PRN OD DRY EYE; Start at 20:45 Vitamin D (Vitamin D3) 4,000 unit DAILY PO Last administered on 05/05/17 07:19 ; Start 04/24/17 at 09:00 Non-Formulary Medication 2,400 mg PRN QHS PRN PO CONSTIPATION; Start 04/23/17 at 20:30; Status UNV Fluticasone Propionate (Flonase) 2 spray DAILY NS Last administered on 11:07; Start 04/24/17 at 09:00 Olanzapine (ZyPREXA ZYDIS) 2.5 mg PRN Q2HR PRN PO PSYCHOSIS Last administered on 05/02/17 17:15; Start 04/24/17 at 08:00 Carbidopa/Levodopa (Sinemet Cr) 1 tab.sa TID PO Last administered on 05/05/17 14:00; Start 04/24/17 at 21:00 Atorvastatin Calcium (Lipitor) 20 mg QHS PO Last administered on 05/04/17 19: 43; Start 04/25/17 at 21:00 Quetiapine Fumarate (SEROquel) 12.5 mg BID92 PO Last administered on 04/27/17 15:12; Start 04/26/17 at 09:00; Stop 04/27/17 at 19:24; Status DC Benztropine Mesylate (Cogentin) 0.5 mg BID PO Last administered on 05/03/17 11 :02; Start 04/26/17 at 21:00; Stop 05/03/17 at 14:31; Status DC Quetiapine Fumarate (SEROquel) 12.5 mg TID@0900,1400,1800 PO Last administered on 04/29/17 18:08; Start 04/28/17 at 09:00; Stop 04/29/17 at 18:15; Status DC Quetiapine Fumarate (SEROquel) 12.5 mg QID PO Last administered on 05/01/17 16 :42; Start 04/29/17 at 21:00; Stop 05/01/17 at 18:33; Status DC Quetiapine Fumarate (SEROquel) 12.5 mg BID@0900,2100 PO Last administered on 11:40; Start 05/01/17 at 21:00; Stop 05/02/17 at 18:32; Status DC Quetiapine Fumarate (SEROquel) 25 mg BID@1300,1700 PO Last administered on 05/02 16:58; Start 05/02/17 at 13:00; Stop 05/02/17 at 18:32; Status DC Quetiapine Fumarate (SEROquel) 25 mg QID PO Last administered on 05/05/17 13: 00; Start 05/02/17 at 21:00; Stop 05/05/17 at 16:59; Status DC Benztropine Mesylate (Cogentin) 1 mg BID PO Last administered on 05/05/17 07: 19; Start 05/03/17 at 21:00 Quetiapine Fumarate (SEROquel) 37.5 mg DAILY PO ; Start 05/06/17 at 09:00 Quetiapine Fumarate (SEROquel) 25 mg NOON PO ; Start 05/06/17 at 12:00 Quetiapine Fumarate (SEROquel) 37.5 mg DAILYWSUP PO Last administered on t 17:00; Start 05/05/17 at 17:00 Quetiapine Fumarate (SEROquel) 25 mg QHS PO ; Start 05/05/17 at 21:00 Active Scripts Active Reported Nasacort (Triamcinolone Acetonide) 10.8 Ml [place] 2 Sprays NS DAILY [place] (Ketotifen Fumarate) 10 Ml Drops 1 Drop EACHEYE BID Bisacodyl 10 Mg Supp.rect 10 Mg RC PRN DAILY PRN Benadryl (Diphenhydramine Hcl) 25 Mg Capsule 12.5 Mg PO PRN BID PRN Refresh Tears (Carboxymethylcellulose Sodium) 15 Ml Drops 1 Drop OD PRN QID PRN Lorazepam 0.5 Mg Tablet 0.5 Mg TP PRN Q6HRS PRN Seroquel (Quetiapine Fumarate) 25 Mg Tablet 25 Mg PO PRN DAILY PRN Aspirin 81 Mg Tab.chew 81 Mg PO DAILY Maalox Maximum Strength Susp (Mag Hydrox/Al Hydrox/Simeth) 355 Ml Oral.susp 15 Ml PO PRN AFTMEALHC PRN Milk Of Magnesia (Magnesium Hydroxide) 2,400 Mg/10 Ml Oral.susp 2,400 Mg PO PRN QHS PRN Tylenol (Acetaminophen) 325 Mg Tablet 650 Mg PO PRN Q6HRS PRN Cymbalta (Duloxetine Hcl) 60 Mg Capsule.dr 60 Mg PO DAILY DO NOT CRUSH OR CHEW Vitamin D3 (Cholecalciferol (Vitamin D3)) 5,000 Unit Tablet 4,000 Unit PO DAILY Abilify (Aripiprazole) 5 Mg Tablet 10 Mg PO DAILY Loratadine 10 Mg Tablet 10 Mg PO DAILY Ativan (Lorazepam) 1 Mg Tablet 0.5 Mg PO BID PRN Namenda (Memantine Hcl) 10 Mg Tablet 10 Mg PO BID Aricept (Donepezil Hcl) 10 Mg Tablet 10 Mg PO DAILY Depakote Sprinkle (Divalproex Sodium) 125 Mg Cap.sprink 500 Mg PO TID GIVE WITH FOOD. Diagnosis: Problems: (1) Anxiety disorder (2) Impulse control disorder (3) Dementia, vascular, with depression (4) Dementia, vascular, with delusions (5) Dementia in Alzheimer's disease with depression (6) Dementia in Alzheimer's disease with delusions ISACC WEAVER MD May 05, 2017 19:56
[2017-05-05] MEDS: ATORVASTATIN CALCIUM 20 MG TABLET PO SCH (20:00)
--- NOTE | 2017-05-06 02:41 | PN ---
DATE: 05/04/2017 This is a late entry for 05/04/2017 covers elements not covered in my initial note of 05/04/2017 SUBJECTIVE: I met with the patient in the evening of 05/04/2017. During the day, the patient has been agitated in the morning then confused, wandering during the day, had to be replaced in the [place] to reduce stimulation and away from the other patients. REVIEW OF SYSTEMS: No CV, , pulmonary, eye, ENT system symptoms on review. Reliability poor. MENTAL STATUS EXAM: Oriented to himself. Insight, judgment, recent and remote memory, attention, concentration, fund of knowledge poor, consistent with his diagnosis mentioned in my initial note. PLAN: Continue Depakote 500 mg t.i.d., level is therapeutic at 75, Sinemet, Aricept, Cymbalta 60 mg a day, Namenda 10 mg b.i.d., Ativan p.r.n., Seroquel is 25 mg 4 times a day plus p.r.n. along with Cogentin 0.5 mg b.i.d. We will increase the Seroquel to 37.5 mg first and last doses. Continue 25 mg for the other 2 dosages. Adjust further as clinically indicated. Reviewed drug interactions. Risk/benefit ratio favors no further change. MAN Mary WEAVER MD DR: MARIAM/piter JOB#: [id number] / [id number]
[2017-05-06 05:59] VITALS: BP 98/56
[2017-05-06] MEDS: ASPIRIN 81 MG TAB.CHEW PO SCH (08:16)
[2017-05-06] MEDS: MEMANTINE 10 MG TABLET. PO SCH ×2 (08:16→19:16)
[2017-05-06] MEDS: CARBIDOPA/LEVODOPA CR 25/100MG TABLET.SA PO SCH ×3 (08:16→19:16)
[2017-05-06] MEDS: BENZTROPINE MESYLATE 1 MG TABLET PO SCH ×2 (08:16→19:16)
[2017-05-06] MEDS: DONEPEZIL HCL 10 MG TABLET PO SCH (08:22)
[2017-05-06] MEDS: QUEtiapine 25 MG TABLET. PO SCH ×4 (08:22→19:16)
[2017-05-06] MEDS: CHOLECALCIFEROL (VITAMIN D3) 1,000 UNIT TABLET PO SCH (08:22)
[2017-05-06] MEDS: DIVALPROEX 125 MG CAP.SPRINK PO SCH ×3 (08:22→19:16)
[2017-05-06] MEDS: DULoxetine HCL 60 MG CAPSULE.DR PO SCH (08:22)
[2017-05-06] MEDS: FLUTICASONE 50MCG/NASAL SPRAY 16GM BOTTLE. NS SCH (08:23)
[2017-05-06] MEDS: KETOTIFEN FUMARATE 0.025% OPHT SOLUTION BOTTLE. OU SCH ×2 (08:23→19:26)
[2017-05-06 16:13] VITALS: BP 114/80
--- NOTE | 2017-05-06 18:52 | PDOC ---
Exam Mj Demential Exam: Mj Note: Please also refer to the separate dictated note~for this date of service dictated separately.~Patient seen individually. Discussed the patient with Nursing staff reviewed the chart.~Reviewed interim history and current functioning. Reviewed vital signs,~Labs/ Radiology~and current medications noted below. Continue current treatment with the changes noted in the dictated addendum note Assessment: Vital Signs: Vital Signs Date Time Temp Pulse Resp B/P (MAP) Pulse Ox O2 Delivery O2 Flow Rate FiO2 05/06/17 16:13 97.7 80 20 114/80 (91) 98 05/04/17 16:26 Room Air I&O Intake and Output 05/06/17 07:00 Intake Total 520 ml Balance 520 ml Intake Oral 520 ml Current Medications: Meds: Current Medications Acetaminophen (Tylenol) 650 mg PRN Q6HRS PRN PO PAIN / TEMP Last administered on 04/30/17 18:52; Start 04/23/17 at 17:15 Multi-Ingredient Ointment (Analgesic [place]) 1 ana maría PRN QID PRN TP MUSCLE PAIN; Start 04/23/17 at 17:15 Al Hydroxide/Mg Hydroxide (Mylanta Plus Xs) 15 ml PRN AFTMEALHC PRN PO DYSPEPSIA; Start 04/23/17 at 17:15 Magnesium Hydroxide (Milk Of Magnesia) 2,400 mg PRN QHS PRN PO CONSTIPATION Last administered on 04/29/17 14:31; Start 04/23/17 at 17:15 Aripiprazole (Abilify) 10 mg DAILY PO Last administered on 04/24/17 08:44; Start 04/24/17 at 09:00; Stop 04/24/17 at 19:02; Status DC Divalproex Sodium (Depakote Sprinkles) 500 mg TID PO Last administered on 13:12; Start 04/23/17 at 21:00 Donepezil HCl (Aricept) 10 mg DAILY PO Last administered on 05/06/17 08:22; Start 04/24/17 at 09:00 Duloxetine HCl (Cymbalta) 60 mg DAILY PO Last administered on 05/06/17 08:22; Start 04/24/17 at 09:00 Lorazepam (Ativan) 0.5 mg PRN Q6HRS PRN TP ANXIETY / AGITATION Last administered on 05/02/17 22:21; Start 04/25/17 at 12:00 Lorazepam (Ativan) 0.5 mg PRN BID PRN PO ANXIETY / AGITATION; Start 04/23/17 at 18:00 Memantine (Namenda) 10 mg BID PO Last administered on 05/06/17 08:16; Start at 21:00 Quetiapine Fumarate (SEROquel) 25 mg PRN DAILY PRN PO PSYCHOSIS; Start 04/23/17 at 18:00 Acetaminophen (Tylenol) 650 mg PRN Q6HRS PRN PO PAIN / TEMP; Start 04/23/17 at 20:30; Status UNV Aspirin (Children'S Aspirin) 81 mg DAILY PO Last administered on 05/06/17 08: 16; Start 04/24/17 at 09:00 Bisacodyl (Dulcolax Supp) 10 mg PRN DAILY PRN RC CONSTIPATION; Start 04/23/17 at 20:30 Ketotifen Fumarate (Zaditor) 1 drop BID OU Last administered on 05/06/17 08:23 ; Start 04/23/17 at 21:00 Al Hydroxide/Mg Hydroxide (Mylanta Plus Xs) 15 ml PRN AFTMEALHC PRN PO DYSPEPSIA; Start 04/23/17 at 20:30; Status UNV Artificial Tears (Refresh Classic) 1 drop PRN QID PRN OD DRY EYE; Start at 20:45 Vitamin D (Vitamin D3) 4,000 unit DAILY PO Last administered on 05/06/17 08:22 ; Start 04/24/17 at 09:00 Non-Formulary Medication 2,400 mg PRN QHS PRN PO CONSTIPATION; Start 04/23/17 at 20:30; Status UNV Fluticasone Propionate (Flonase) 2 spray DAILY NS Last administered on 08:23; Start 04/24/17 at 09:00 Olanzapine (ZyPREXA ZYDIS) 2.5 mg PRN Q2HR PRN PO PSYCHOSIS Last administered on 05/02/17 17:15; Start 04/24/17 at 08:00 Carbidopa/Levodopa (Sinemet Cr) 1 tab.sa TID PO Last administered on 05/06/17 13:12; Start 04/24/17 at 21:00 Atorvastatin Calcium (Lipitor) 20 mg QHS PO Last administered on 05/05/17 20: 00; Start 04/25/17 at 21:00 Quetiapine Fumarate (SEROquel) 12.5 mg BID92 PO Last administered on 04/27/17 15:12; Start 04/26/17 at 09:00; Stop 04/27/17 at 19:24; Status DC Benztropine Mesylate (Cogentin) 0.5 mg BID PO Last administered on 05/03/17 11 :02; Start 04/26/17 at 21:00; Stop 05/03/17 at 14:31; Status DC Quetiapine Fumarate (SEROquel) 12.5 mg TID@0900,1400,1800 PO Last administered on 04/29/17 18:08; Start 04/28/17 at 09:00; Stop 04/29/17 at 18:15; Status DC Quetiapine Fumarate (SEROquel) 12.5 mg QID PO Last administered on 05/01/17 16 :42; Start 04/29/17 at 21:00; Stop 05/01/17 at 18:33; Status DC Quetiapine Fumarate (SEROquel) 12.5 mg BID@0900,2100 PO Last administered on 11:40; Start 05/01/17 at 21:00; Stop 05/02/17 at 18:32; Status DC Quetiapine Fumarate (SEROquel) 25 mg BID@1300,1700 PO Last administered on 05/02 16:58; Start 05/02/17 at 13:00; Stop 05/02/17 at 18:32; Status DC Quetiapine Fumarate (SEROquel) 25 mg QID PO Last administered on 05/05/17 13: 00; Start 05/02/17 at 21:00; Stop 05/05/17 at 16:59; Status DC Benztropine Mesylate (Cogentin) 1 mg BID PO Last administered on 05/06/17 08: 16; Start 05/03/17 at 21:00 Quetiapine Fumarate (SEROquel) 37.5 mg DAILY PO Last administered on 05/06/17 08:22; Start 05/06/17 at 09:00 Quetiapine Fumarate (SEROquel) 25 mg NOON PO Last administered on 05/06/17 13: 09; Start 05/06/17 at 12:00 Quetiapine Fumarate (SEROquel) 37.5 mg DAILYWSUP PO Last administered on 17:06; Start 05/05/17 at 17:00 Quetiapine Fumarate (SEROquel) 25 mg QHS PO Last administered on 05/05/17 20: 01; Start 05/05/17 at 21:00 Active Scripts Active Reported Nasacort (Triamcinolone Acetonide) 10.8 Ml [place] 2 Sprays NS DAILY [place] (Ketotifen Fumarate) 10 Ml Drops 1 Drop EACHEYE BID Bisacodyl 10 Mg Supp.rect 10 Mg RC PRN DAILY PRN Benadryl (Diphenhydramine Hcl) 25 Mg Capsule 12.5 Mg PO PRN BID PRN Refresh Tears (Carboxymethylcellulose Sodium) 15 Ml Drops 1 Drop OD PRN QID PRN Lorazepam 0.5 Mg Tablet 0.5 Mg TP PRN Q6HRS PRN Seroquel (Quetiapine Fumarate) 25 Mg Tablet 25 Mg PO PRN DAILY PRN Aspirin 81 Mg Tab.chew 81 Mg PO DAILY Maalox Maximum Strength Susp (Mag Hydrox/Al Hydrox/Simeth) 355 Ml Oral.susp 15 Ml PO PRN AFTMEALHC PRN Milk Of Magnesia (Magnesium Hydroxide) 2,400 Mg/10 Ml Oral.susp 2,400 Mg PO PRN QHS PRN Tylenol (Acetaminophen) 325 Mg Tablet 650 Mg PO PRN Q6HRS PRN Cymbalta (Duloxetine Hcl) 60 Mg Capsule.dr 60 Mg PO DAILY DO NOT CRUSH OR CHEW Vitamin D3 (Cholecalciferol (Vitamin D3)) 5,000 Unit Tablet 4,000 Unit PO DAILY Abilify (Aripiprazole) 5 Mg Tablet 10 Mg PO DAILY Loratadine 10 Mg Tablet 10 Mg PO DAILY Ativan (Lorazepam) 1 Mg Tablet 0.5 Mg PO BID PRN Namenda (Memantine Hcl) 10 Mg Tablet 10 Mg PO BID Aricept (Donepezil Hcl) 10 Mg Tablet 10 Mg PO DAILY Depakote Sprinkle (Divalproex Sodium) 125 Mg Cap.sprink 500 Mg PO TID GIVE WITH FOOD. Diagnosis: Problems: (1) Dementia in Alzheimer's disease with delusions (2) Dementia in Alzheimer's disease with depression (3) Dementia, vascular, with delusions (4) Dementia, vascular, with depression (5) Impulse control disorder (6) Anxiety disorder ISACC WEAVER MD May 06, 2017 18:52
[2017-05-06] MEDS: ATORVASTATIN CALCIUM 20 MG TABLET PO SCH (19:16)
--- NOTE | 2017-05-07 04:12 | PN ---
DATE: 05/05/2017 PSYCHIATRIC PROGRESS NOTE This is a late entry of 05/05/2017 covers elements not covered my initial note. SUBJECTIVE: I met with the patient evening of 05/05/2017. Per nursing report, the patient has been ambulating bent forward questionable whether we should reduce the dosage of Seroquel, but he is still very aggressive at times and we will have to be careful in adjusting this downward especially since he is on the Sinemet now. This in past has increased his aggression. REVIEW OF SYSTEMS: No CV, , pulmonary, eye, ENT system symptoms on review. Reliability poor. MENTAL STATUS EXAM: Oriented to himself. Insight, judgment, recent and remote memory, attention, concentration, fund of knowledge poor, consistent with his diagnosis mentioned in my initial note. PLAN: Continue current psychotropics. Valproic acid level 75. Reviewed drug interactions risk/benefit ratio favors no further change at this time. ISACC WEAVER MD DR: MARIAM/piter JOB#: [id number] / [id number]
[2017-05-07 06:50] LABS: BASO % 1 % (0-3); EOS # 0.1 x10^3/uL (0.0-0.7); EOS % 1 % (0-3); HEMATOCRIT 40.6 % (39.0-53.0); HEMOGLOBIN 13.8 g/dL (13.0-17.5); LYMPH # 1.5 x10^3/uL (1.0-4.8); LYMPH % 24 % (24-48); MEAN CORPUSCULAR HEMOGLOBIN 33 pg (25-35); MEAN CORPUSCULAR HGB CONC 34 g/dL (31-37); MEAN CORPUSCULAR VOLUME 97 fL (79-100); MONO # 0.6 x10^3/uL (0.0-1.1); MONO % 9 % (0-9); NEUT # 4.1 x10^3uL (1.8-7.7); NEUT % 65 % (31-73); PLATELET COUNT 195 x10^3/uL (140-400); RED CELL DISTRIBUTION WIDTH 13.4 % (11.5-14.5); WHITE BLOOD COUNT 6.3 x10^3/uL (4.0-11.0)
[2017-05-07 06:59] LABS: ALBUMIN 3.6 g/dL (3.4-5.0); ALBUMIN/GLOBULIN RATIO 1.1 (1.0-1.7); CALCIUM 8.9 mg/dL (8.5-10.1); CREATININE 0.8 mg/dL (0.7-1.3); POTASSIUM 4.3 mmol/L (3.5-5.1); TOTAL BILIRUBIN 0.4 mg/dL (0.2-1.0); TOTAL PROTEIN 6.8 g/dL (6.4-8.2)
[2017-05-07] MEDS: FLUTICASONE 50MCG/NASAL SPRAY 16GM BOTTLE. NS SCH (09:00)
[2017-05-07] MEDS: KETOTIFEN FUMARATE 0.025% OPHT SOLUTION BOTTLE. OU SCH ×2 (09:00→19:30)
[2017-05-07 09:18] VITALS: BP 91/56
[2017-05-07] MEDS: QUEtiapine 25 MG TABLET. PO SCH ×4 (09:19→19:27)
[2017-05-07] MEDS: BENZTROPINE MESYLATE 1 MG TABLET PO SCH ×2 (09:19→19:27)
[2017-05-07] MEDS: ASPIRIN 81 MG TAB.CHEW PO SCH (09:19)
[2017-05-07] MEDS: DULoxetine HCL 60 MG CAPSULE.DR PO SCH (09:19)
[2017-05-07] MEDS: CARBIDOPA/LEVODOPA CR 25/100MG TABLET.SA PO SCH ×3 (09:20→19:27)
[2017-05-07] MEDS: CHOLECALCIFEROL (VITAMIN D3) 1,000 UNIT TABLET PO SCH (09:20)
[2017-05-07] MEDS: DIVALPROEX 125 MG CAP.SPRINK PO SCH ×3 (09:20→19:28)
[2017-05-07] MEDS: DONEPEZIL HCL 10 MG TABLET PO SCH (09:20)
[2017-05-07] MEDS: MEMANTINE 10 MG TABLET. PO SCH ×2 (09:20→19:28)
[2017-05-07 16:32] VITALS: BP 86/56
--- NOTE | 2017-05-07 18:37 | PDOC ---
Exam Mj Demential Exam: Mj Note: Please also refer to the separate dictated note~for this date of service dictated separately.~Patient seen individually. Discussed the patient with Nursing staff reviewed the chart.~Reviewed interim history and current functioning. Reviewed vital signs,~Labs/ Radiology~and current medications noted below. Continue current treatment with the changes noted in the dictated addendum note Assessment: Vital Signs: Vital Signs Date Time Temp Pulse Resp B/P (MAP) Pulse Ox O2 Delivery O2 Flow Rate FiO2 05/07/17 16:32 97.6 71 18 86/56 (66) 100 05/04/17 16:26 Room Air I&O Intake and Output 05/07/17 07:00 Intake Total 1500 ml Balance 1500 ml Intake Oral 1500 ml # Voids 2 # Bowel Movements 1 Labs: Laboratory Tests Test 05/07/17 06:32 White Blood Count 6.3 x10^3/uL (4.0-11.0) Red Blood Count 4.20 x10^6/uL (4.30-5.70) L Hemoglobin 13.8 g/dL (13.0-17.5) Hematocrit 40.6 % (39.0-53.0) Mean Corpuscular Volume 97 fL (79-100) Mean Corpuscular Hemoglobin 33 pg (25-35) Mean Corpuscular Hemoglobin Concent 34 g/dL (31-37) Red Cell Distribution Width 13.4 % (11.5-14.5) Platelet Count 195 x10^3/uL (140-400) Neutrophils (%) (Auto) 65 % (31-73) Lymphocytes (%) (Auto) 24 % (24-48) Monocytes (%) (Auto) 9 % (0-9) Eosinophils (%) (Auto) 1 % (0-3) Basophils (%) (Auto) 1 % (0-3) Neutrophils # (Auto) 4.1 x10^3uL (1.8-7.7) Lymphocytes # (Auto) 1.5 x10^3/uL (1.0-4.8) Monocytes # (Auto) 0.6 x10^3/uL (0.0-1.1) Eosinophils # (Auto) 0.1 x10^3/uL (0.0-0.7) Basophils # (Auto) 0.0 x10^3/uL (0.0-0.2) Sodium Level 142 mmol/L (136-145) Potassium Level 4.3 mmol/L (3.5-5.1) Chloride Level 104 mmol/L (98-107) Carbon Dioxide Level 32 mmol/L (21-32) Anion Gap 6 (6-14) Blood Urea Nitrogen 17 mg/dL (8-26) Creatinine 0.8 mg/dL (0.7-1.3) Estimated GFR (Cockcroft-Gault) 97.0 BUN/Creatinine Ratio 21 (6-20) H Glucose Level 76 mg/dL (70-99) Calcium Level 8.9 mg/dL (8.5-10.1) Magnesium Level 2.1 mg/dL (1.8-2.4) Total Bilirubin 0.4 mg/dL (0.2-1.0) Aspartate Amino Transferase (AST) 20 U/L (15-37) Alanine Aminotransferase (ALT) 11 U/L (16-63) L Alkaline Phosphatase 63 U/L (46-116) Total Protein 6.8 g/dL (6.4-8.2) Albumin 3.6 g/dL (3.4-5.0) Albumin/Globulin Ratio 1.1 (1.0-1.7) Current Medications: Meds: Current Medications Acetaminophen (Tylenol) 650 mg PRN Q6HRS PRN PO PAIN / TEMP Last administered on 04/30/17 18:52; Start 04/23/17 at 17:15 Multi-Ingredient Ointment (Analgesic [place]) 1 ana maría PRN QID PRN TP MUSCLE PAIN; Start 04/23/17 at 17:15 Al Hydroxide/Mg Hydroxide (Mylanta Plus Xs) 15 ml PRN AFTMEALHC PRN PO DYSPEPSIA; Start 04/23/17 at 17:15 Magnesium Hydroxide (Milk Of Magnesia) 2,400 mg PRN QHS PRN PO CONSTIPATION Last administered on 04/29/17 14:31; Start 04/23/17 at 17:15 Aripiprazole (Abilify) 10 mg DAILY PO Last administered on 04/24/17 08:44; Start 04/24/17 at 09:00; Stop 04/24/17 at 19:02; Status DC Divalproex Sodium (Depakote Sprinkles) 500 mg TID PO Last administered on 13:32; Start 04/23/17 at 21:00 Donepezil HCl (Aricept) 10 mg DAILY PO Last administered on 05/07/17 09:20; Start 04/24/17 at 09:00 Duloxetine HCl (Cymbalta) 60 mg DAILY PO Last administered on 05/07/17 09:19; Start 04/24/17 at 09:00 Lorazepam (Ativan) 0.5 mg PRN Q6HRS PRN TP ANXIETY / AGITATION Last administered on 05/02/17 22:21; Start 04/25/17 at 12:00 Lorazepam (Ativan) 0.5 mg PRN BID PRN PO ANXIETY / AGITATION; Start 04/23/17 at 18:00 Memantine (Namenda) 10 mg BID PO Last administered on 05/07/17 09:20; Start at 21:00 Quetiapine Fumarate (SEROquel) 25 mg PRN DAILY PRN PO PSYCHOSIS; Start 04/23/17 at 18:00 Acetaminophen (Tylenol) 650 mg PRN Q6HRS PRN PO PAIN / TEMP; Start 04/23/17 at 20:30; Status UNV Aspirin (Children'S Aspirin) 81 mg DAILY PO Last administered on 05/07/17 09: 19; Start 04/24/17 at 09:00 Bisacodyl (Dulcolax Supp) 10 mg PRN DAILY PRN RC CONSTIPATION; Start 04/23/17 at 20:30 Ketotifen Fumarate (Zaditor) 1 drop BID OU Last administered on 05/06/17 19:26 ; Start 04/23/17 at 21:00 Al Hydroxide/Mg Hydroxide (Mylanta Plus Xs) 15 ml PRN AFTMEALHC PRN PO DYSPEPSIA; Start 04/23/17 at 20:30; Status UNV Artificial Tears (Refresh Classic) 1 drop PRN QID PRN OD DRY EYE; Start at 20:45 Vitamin D (Vitamin D3) 4,000 unit DAILY PO Last administered on 05/07/17 09:20 ; Start 04/24/17 at 09:00 Non-Formulary Medication 2,400 mg PRN QHS PRN PO CONSTIPATION; Start 04/23/17 at 20:30; Status UNV Fluticasone Propionate (Flonase) 2 spray DAILY NS Last administered on 08:23; Start 04/24/17 at 09:00 Olanzapine (ZyPREXA ZYDIS) 2.5 mg PRN Q2HR PRN PO PSYCHOSIS Last administered on 05/07/17 05:29; Start 04/24/17 at 08:00 Carbidopa/Levodopa (Sinemet Cr) 1 tab.sa TID PO Last administered on 05/07/17 13:32; Start 04/24/17 at 21:00 Atorvastatin Calcium (Lipitor) 20 mg QHS PO Last administered on 05/06/17 19: 16; Start 04/25/17 at 21:00 Quetiapine Fumarate (SEROquel) 12.5 mg BID92 PO Last administered on 04/27/17 15:12; Start 04/26/17 at 09:00; Stop 04/27/17 at 19:24; Status DC Benztropine Mesylate (Cogentin) 0.5 mg BID PO Last administered on 05/03/17 11 :02; Start 04/26/17 at 21:00; Stop 05/03/17 at 14:31; Status DC Quetiapine Fumarate (SEROquel) 12.5 mg TID@0900,1400,1800 PO Last administered on 04/29/17 18:08; Start 04/28/17 at 09:00; Stop 04/29/17 at 18:15; Status DC Quetiapine Fumarate (SEROquel) 12.5 mg QID PO Last administered on 05/01/17 16 :42; Start 04/29/17 at 21:00; Stop 05/01/17 at 18:33; Status DC Quetiapine Fumarate (SEROquel) 12.5 mg BID@0900,2100 PO Last administered on 11:40; Start 05/01/17 at 21:00; Stop 05/02/17 at 18:32; Status DC Quetiapine Fumarate (SEROquel) 25 mg BID@1300,1700 PO Last administered on 05/02 16:58; Start 05/02/17 at 13:00; Stop 05/02/17 at 18:32; Status DC Quetiapine Fumarate (SEROquel) 25 mg QID PO Last administered on 05/05/17 13: 00; Start 05/02/17 at 21:00; Stop 05/05/17 at 16:59; Status DC Benztropine Mesylate (Cogentin) 1 mg BID PO Last administered on 05/07/17 09: 19; Start 05/03/17 at 21:00 Quetiapine Fumarate (SEROquel) 37.5 mg DAILY PO Last administered on 05/07/17 09:19; Start 05/06/17 at 09:00 Quetiapine Fumarate (SEROquel) 25 mg NOON PO Last administered on 05/07/17 13: 32; Start 05/06/17 at 12:00 Quetiapine Fumarate (SEROquel) 37.5 mg DAILYWSUP PO Last administered on 17:46; Start 05/05/17 at 17:00 Quetiapine Fumarate (SEROquel) 25 mg QHS PO Last administered on 05/06/17 19: 16; Start 05/05/17 at 21:00 Active Scripts Active Reported Nasacort (Triamcinolone Acetonide) 10.8 Ml [place] 2 Sprays NS DAILY [place] (Ketotifen Fumarate) 10 Ml Drops 1 Drop EACHEYE BID Bisacodyl 10 Mg Supp.rect 10 Mg RC PRN DAILY PRN Benadryl (Diphenhydramine Hcl) 25 Mg Capsule 12.5 Mg PO PRN BID PRN Refresh Tears (Carboxymethylcellulose Sodium) 15 Ml Drops 1 Drop OD PRN QID PRN Lorazepam 0.5 Mg Tablet 0.5 Mg TP PRN Q6HRS PRN Seroquel (Quetiapine Fumarate) 25 Mg Tablet 25 Mg PO PRN DAILY PRN Aspirin 81 Mg Tab.chew 81 Mg PO DAILY Maalox Maximum Strength Susp (Mag Hydrox/Al Hydrox/Simeth) 355 Ml Oral.susp 15 Ml PO PRN AFTMEALHC PRN Milk Of Magnesia (Magnesium Hydroxide) 2,400 Mg/10 Ml Oral.susp 2,400 Mg PO PRN QHS PRN Tylenol (Acetaminophen) 325 Mg Tablet 650 Mg PO PRN Q6HRS PRN Cymbalta (Duloxetine Hcl) 60 Mg Capsule.dr 60 Mg PO DAILY DO NOT CRUSH OR CHEW Vitamin D3 (Cholecalciferol (Vitamin D3)) 5,000 Unit Tablet 4,000 Unit PO DAILY Abilify (Aripiprazole) 5 Mg Tablet 10 Mg PO DAILY Loratadine 10 Mg Tablet 10 Mg PO DAILY Ativan (Lorazepam) 1 Mg Tablet 0.5 Mg PO BID PRN Namenda (Memantine Hcl) 10 Mg Tablet 10 Mg PO BID Aricept (Donepezil Hcl) 10 Mg Tablet 10 Mg PO DAILY Depakote Sprinkle (Divalproex Sodium) 125 Mg Cap.sprink 500 Mg PO TID GIVE WITH FOOD. 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
[2017-05-07] MEDS: ATORVASTATIN CALCIUM 20 MG TABLET PO SCH (19:27)
--- NOTE | 2017-05-08 03:19 | PN ---
DATE: 05/06/2017 This late entry, 05/06/2017, covers elements not covered in my initial note of 05/06/2017. SUBJECTIVE: I met with the patient the evening of 05/06/2017 and also met with the patient's at length. had been gone out of town for a few days and is back on 05/06/2017 and said she was pleased to see the patient is smiling more, interactive more. He still leans forward, but agitation is better. He had trouble getting himself to the toilet, but staffs were able to assist him. REVIEW OF SYSTEMS: No CV, , pulmonary, eye, ENT system symptoms on review. Gait unsteady. MENTAL STATUS EXAMINATION: Oriented to himself. Insight, judgment, recent and remote memory, attention, concentration, fund of knowledge poor, consistent with his diagnosis mentioned in my initial note. PLAN: Continue current psychotropics, reviewed drug interactions, risk/benefit ratio favors, no change for now. Discussed this at length with the and answered her questions, received informed consent. MAN Mary WEAVER MD DR: MARIAM/piter JOB#: [id number] / [id number]
[2017-05-08 06:20] VITALS: BP 112/65
[2017-05-08] MEDS: KETOTIFEN FUMARATE 0.025% OPHT SOLUTION BOTTLE. OU SCH ×2 (09:00→19:33)
[2017-05-08] MEDS: FLUTICASONE 50MCG/NASAL SPRAY 16GM BOTTLE. NS SCH (09:00)
[2017-05-08] MEDS: BENZTROPINE MESYLATE 1 MG TABLET PO SCH ×2 (09:42→19:32)
[2017-05-08] MEDS: CARBIDOPA/LEVODOPA CR 25/100MG TABLET.SA PO SCH ×3 (09:42→19:31)
[2017-05-08] MEDS: DULoxetine HCL 60 MG CAPSULE.DR PO SCH (09:42)
[2017-05-08] MEDS: DONEPEZIL HCL 10 MG TABLET PO SCH (09:42)
[2017-05-08] MEDS: ASPIRIN 81 MG TAB.CHEW PO SCH (09:43)
[2017-05-08] MEDS: DIVALPROEX 125 MG CAP.SPRINK PO SCH ×3 (09:43→19:31)
[2017-05-08] MEDS: QUEtiapine 25 MG TABLET. PO SCH ×4 (09:43→19:32)
[2017-05-08] MEDS: CHOLECALCIFEROL (VITAMIN D3) 1,000 UNIT TABLET PO SCH (09:43)
[2017-05-08] MEDS: MEMANTINE 10 MG TABLET. PO SCH ×2 (09:43→19:32)
[2017-05-08 16:15] VITALS: BP 98/55
[2017-05-08] MEDS: ATORVASTATIN CALCIUM 20 MG TABLET PO SCH (19:32)
--- NOTE | 2017-05-08 20:44 | PDOC ---
Exam Mj Demential Exam: Mj Note: Please also refer to the separate dictated note~for this date of service dictated separately.~Patient seen individually. Discussed the patient with Nursing staff reviewed the chart.~Reviewed interim history and current functioning. Reviewed vital signs,~Labs/ Radiology~and current medications noted below. Continue current treatment with the changes noted in the dictated addendum note Assessment: Vital Signs: Vital Signs Date Time Temp Pulse Resp B/P (MAP) Pulse Ox O2 Delivery O2 Flow Rate FiO2 05/08/17 16:15 97.5 100 18 98/55 (69) 98 05/04/17 16:26 Room Air I&O Intake and Output 05/08/17 07:00 Intake Total 1320 ml Balance 1320 ml Intake Oral 1320 ml # Voids 1 # Bowel Movements 2 Current Medications: Meds: Current Medications Acetaminophen (Tylenol) 650 mg PRN Q6HRS PRN PO PAIN / TEMP Last administered on 04/30/17 18:52; Start 04/23/17 at 17:15 Multi-Ingredient Ointment (Analgesic [place]) 1 ana maría PRN QID PRN TP MUSCLE PAIN; Start 04/23/17 at 17:15 Al Hydroxide/Mg Hydroxide (Mylanta Plus Xs) 15 ml PRN AFTMEALHC PRN PO DYSPEPSIA; Start 04/23/17 at 17:15 Magnesium Hydroxide (Milk Of Magnesia) 2,400 mg PRN QHS PRN PO CONSTIPATION Last administered on 04/29/17 14:31; Start 04/23/17 at 17:15 Aripiprazole (Abilify) 10 mg DAILY PO Last administered on 04/24/17 08:44; Start 04/24/17 at 09:00; Stop 04/24/17 at 19:02; Status DC Divalproex Sodium (Depakote Sprinkles) 500 mg TID PO Last administered on 19:31; Start 04/23/17 at 21:00 Donepezil HCl (Aricept) 10 mg DAILY PO Last administered on 05/08/17 09:42; Start 04/24/17 at 09:00 Duloxetine HCl (Cymbalta) 60 mg DAILY PO Last administered on 05/08/17 09:42; Start 04/24/17 at 09:00 Lorazepam (Ativan) 0.5 mg PRN Q6HRS PRN TP ANXIETY / AGITATION Last administered on 05/02/17 22:21; Start 04/25/17 at 12:00 Lorazepam (Ativan) 0.5 mg PRN BID PRN PO ANXIETY / AGITATION; Start 04/23/17 at 18:00 Memantine (Namenda) 10 mg BID PO Last administered on 05/08/17 19:32; Start at 21:00 Quetiapine Fumarate (SEROquel) 25 mg PRN DAILY PRN PO PSYCHOSIS; Start 04/23/17 at 18:00 Acetaminophen (Tylenol) 650 mg PRN Q6HRS PRN PO PAIN / TEMP; Start 04/23/17 at 20:30; Status UNV Aspirin (Children'S Aspirin) 81 mg DAILY PO Last administered on 05/08/17 09: 43; Start 04/24/17 at 09:00 Bisacodyl (Dulcolax Supp) 10 mg PRN DAILY PRN RC CONSTIPATION; Start 04/23/17 at 20:30 Ketotifen Fumarate (Zaditor) 1 drop BID OU Last administered on 05/08/17 19:33 ; Start 04/23/17 at 21:00 Al Hydroxide/Mg Hydroxide (Mylanta Plus Xs) 15 ml PRN AFTMEALHC PRN PO DYSPEPSIA; Start 04/23/17 at 20:30; Status UNV Artificial Tears (Refresh Classic) 1 drop PRN QID PRN OD DRY EYE; Start at 20:45 Vitamin D (Vitamin D3) 4,000 unit DAILY PO Last administered on 05/08/17 09:43 ; Start 04/24/17 at 09:00 Non-Formulary Medication 2,400 mg PRN QHS PRN PO CONSTIPATION; Start 04/23/17 at 20:30; Status UNV Fluticasone Propionate (Flonase) 2 spray DAILY NS Last administered on 08:23; Start 04/24/17 at 09:00 Olanzapine (ZyPREXA ZYDIS) 2.5 mg PRN Q2HR PRN PO PSYCHOSIS Last administered on 05/07/17 05:29; Start 04/24/17 at 08:00 Carbidopa/Levodopa (Sinemet Cr) 1 tab.sa TID PO Last administered on 05/08/17 19:31; Start 04/24/17 at 21:00 Atorvastatin Calcium (Lipitor) 20 mg QHS PO Last administered on 05/08/17 19: 32; Start 04/25/17 at 21:00 Quetiapine Fumarate (SEROquel) 12.5 mg BID92 PO Last administered on 04/27/17 15:12; Start 04/26/17 at 09:00; Stop 04/27/17 at 19:24; Status DC Benztropine Mesylate (Cogentin) 0.5 mg BID PO Last administered on 05/03/17 11 :02; Start 04/26/17 at 21:00; Stop 05/03/17 at 14:31; Status DC Quetiapine Fumarate (SEROquel) 12.5 mg TID@0900,1400,1800 PO Last administered on 04/29/17 18:08; Start 04/28/17 at 09:00; Stop 04/29/17 at 18:15; Status DC Quetiapine Fumarate (SEROquel) 12.5 mg QID PO Last administered on 05/01/17 16 :42; Start 04/29/17 at 21:00; Stop 05/01/17 at 18:33; Status DC Quetiapine Fumarate (SEROquel) 12.5 mg BID@0900,2100 PO Last administered on 11:40; Start 05/01/17 at 21:00; Stop 05/02/17 at 18:32; Status DC Quetiapine Fumarate (SEROquel) 25 mg BID@1300,1700 PO Last administered on 05/02 16:58; Start 05/02/17 at 13:00; Stop 05/02/17 at 18:32; Status DC Quetiapine Fumarate (SEROquel) 25 mg QID PO Last administered on 05/05/17 13: 00; Start 05/02/17 at 21:00; Stop 05/05/17 at 16:59; Status DC Benztropine Mesylate (Cogentin) 1 mg BID PO Last administered on 05/08/17 19: 32; Start 05/03/17 at 21:00 Quetiapine Fumarate (SEROquel) 37.5 mg DAILY PO Last administered on 05/08/17 09:43; Start 05/06/17 at 09:00 Quetiapine Fumarate (SEROquel) 25 mg NOON PO Last administered on 05/08/17 12: 57; Start 05/06/17 at 12:00 Quetiapine Fumarate (SEROquel) 37.5 mg DAILYWSUP PO Last administered on 17:02; Start 05/05/17 at 17:00 Quetiapine Fumarate (SEROquel) 25 mg QHS PO Last administered on 05/08/17 19: 32; Start 05/05/17 at 21:00 Active Scripts Active Reported Nasacort (Triamcinolone Acetonide) 10.8 Ml [place] 2 Sprays NS DAILY [place] (Ketotifen Fumarate) 10 Ml Drops 1 Drop EACHEYE BID Bisacodyl 10 Mg Supp.rect 10 Mg RC PRN DAILY PRN Benadryl (Diphenhydramine Hcl) 25 Mg Capsule 12.5 Mg PO PRN BID PRN Refresh Tears (Carboxymethylcellulose Sodium) 15 Ml Drops 1 Drop OD PRN QID PRN Lorazepam 0.5 Mg Tablet 0.5 Mg TP PRN Q6HRS PRN Seroquel (Quetiapine Fumarate) 25 Mg Tablet 25 Mg PO PRN DAILY PRN Aspirin 81 Mg Tab.chew 81 Mg PO DAILY Maalox Maximum Strength Susp (Mag Hydrox/Al Hydrox/Simeth) 355 Ml Oral.susp 15 Ml PO PRN AFTMEALHC PRN Milk Of Magnesia (Magnesium Hydroxide) 2,400 Mg/10 Ml Oral.susp 2,400 Mg PO PRN QHS PRN Tylenol (Acetaminophen) 325 Mg Tablet 650 Mg PO PRN Q6HRS PRN Cymbalta (Duloxetine Hcl) 60 Mg Capsule.dr 60 Mg PO DAILY DO NOT CRUSH OR CHEW Vitamin D3 (Cholecalciferol (Vitamin D3)) 5,000 Unit Tablet 4,000 Unit PO DAILY Abilify (Aripiprazole) 5 Mg Tablet 10 Mg PO DAILY Loratadine 10 Mg Tablet 10 Mg PO DAILY Ativan (Lorazepam) 1 Mg Tablet 0.5 Mg PO BID PRN Namenda (Memantine Hcl) 10 Mg Tablet 10 Mg PO BID Aricept (Donepezil Hcl) 10 Mg Tablet 10 Mg PO DAILY Depakote Sprinkle (Divalproex Sodium) 125 Mg Cap.sprink 500 Mg PO TID GIVE WITH FOOD. Diagnosis: Problems: (1) Anxiety disorder (2) Impulse control disorder (3) Dementia, vascular, with depression (4) Dementia, vascular, with delusions (5) Dementia in Alzheimer's disease with depression (6) Dementia in Alzheimer's disease with delusions ISACC WEAVER MD May 08, 2017 20:44
[2017-05-09 06:06] VITALS: BP 98/53
[2017-05-09] MEDS: KETOTIFEN FUMARATE 0.025% OPHT SOLUTION BOTTLE. OU SCH ×2 (09:00→19:31)
[2017-05-09] MEDS: CHOLECALCIFEROL (VITAMIN D3) 1,000 UNIT TABLET PO SCH (09:00)
[2017-05-09] MEDS: FLUTICASONE 50MCG/NASAL SPRAY 16GM BOTTLE. NS SCH (09:00)
[2017-05-09] MEDS: MEMANTINE 10 MG TABLET. PO SCH ×2 (09:34→19:30)
[2017-05-09] MEDS: DULoxetine HCL 60 MG CAPSULE.DR PO SCH (09:34)
[2017-05-09] MEDS: ASPIRIN 81 MG TAB.CHEW PO SCH (09:34)
[2017-05-09] MEDS: DONEPEZIL HCL 10 MG TABLET PO SCH (09:34)
[2017-05-09] MEDS: BENZTROPINE MESYLATE 1 MG TABLET PO SCH ×2 (09:34→19:30)
[2017-05-09] MEDS: CARBIDOPA/LEVODOPA CR 25/100MG TABLET.SA PO SCH ×3 (09:34→19:28)
[2017-05-09] MEDS: DIVALPROEX 125 MG CAP.SPRINK PO SCH ×3 (09:35→19:30)
[2017-05-09] MEDS: QUEtiapine 25 MG TABLET. PO SCH ×4 (09:35→19:28)
--- NOTE | 2017-05-09 09:52 | PN ---
DATE: 05/07/2017 This late entry 05/07/2017 covers elements not covered in my initial note of 05/07/2017. I met with the patient in the evening of 05/07/2017 and met with his at some length as well. The patient slept 6-3/4 hours previous evening. He had to be placed in the quiet hallway twice earlier in the day since he gets more agitated with external noises, yelling at times, but not physically attacking. helped him eat. He has not attacked anyone all day. REVIEW OF SYSTEMS: No CV, , pulmonary, eye, ENT system symptoms on review. Reliability poor. MENTAL STATUS EXAM: Oriented to himself, has a smile about his face as I met with him. Insight, judgment, recent and remote memory, attention, concentration, fund of knowledge poor, consistent with his diagnosis mentioned in my initial note. PLAN: Continue current psychotropics. Reviewed drug interactions. Risk/benefit ratio favors. No further change as of now. MAN Mary WEAVER MD DR: MARIAM/piter JOB#: [id number] / [id number]
--- NOTE | 2017-05-09 10:18 | PDOC ---
Exam Mj Demential Exam: Mj Note: Please also refer to the separate dictated note~for this date of service dictated separately.~Patient seen individually. Discussed the patient with Nursing staff reviewed the chart.~Reviewed interim history and current functioning. Reviewed vital signs,~Labs/ Radiology~and current medications noted below. Continue current treatment with the changes noted in the dictated addendum note Assessment: Vital Signs: Vital Signs Date Time Temp Pulse Resp B/P (MAP) Pulse Ox O2 Delivery O2 Flow Rate FiO2 05/09/17 06:06 97.8 56 18 98/53 (68) 98 05/04/17 16:26 Room Air I&O Intake and Output 05/09/17 06:59 Intake Total 720 ml Balance 720 ml Intake Oral 720 ml # Voids 1 # Bowel Movements 2 Current Medications: Meds: Current Medications Acetaminophen (Tylenol) 650 mg PRN Q6HRS PRN PO PAIN / TEMP Last administered on 04/30/17 18:52; Start 04/23/17 at 17:15 Multi-Ingredient Ointment (Analgesic [place]) 1 ana maría PRN QID PRN TP MUSCLE PAIN; Start 04/23/17 at 17:15 Al Hydroxide/Mg Hydroxide (Mylanta Plus Xs) 15 ml PRN AFTMEALHC PRN PO DYSPEPSIA; Start 04/23/17 at 17:15 Magnesium Hydroxide (Milk Of Magnesia) 2,400 mg PRN QHS PRN PO CONSTIPATION Last administered on 04/29/17 14:31; Start 04/23/17 at 17:15 Aripiprazole (Abilify) 10 mg DAILY PO Last administered on 04/24/17 08:44; Start 04/24/17 at 09:00; Stop 04/24/17 at 19:02; Status DC Divalproex Sodium (Depakote Sprinkles) 500 mg TID PO Last administered on 09:35; Start 04/23/17 at 21:00 Donepezil HCl (Aricept) 10 mg DAILY PO Last administered on 05/09/17 09:34; Start 04/24/17 at 09:00 Duloxetine HCl (Cymbalta) 60 mg DAILY PO Last administered on 05/09/17 09:34; Start 04/24/17 at 09:00 Lorazepam (Ativan) 0.5 mg PRN Q6HRS PRN TP ANXIETY / AGITATION Last administered on 05/02/17 22:21; Start 04/25/17 at 12:00 Lorazepam (Ativan) 0.5 mg PRN BID PRN PO ANXIETY / AGITATION; Start 04/23/17 at 18:00 Memantine (Namenda) 10 mg BID PO Last administered on 05/09/17 09:34; Start at 21:00 Quetiapine Fumarate (SEROquel) 25 mg PRN DAILY PRN PO PSYCHOSIS; Start 04/23/17 at 18:00 Acetaminophen (Tylenol) 650 mg PRN Q6HRS PRN PO PAIN / TEMP; Start 04/23/17 at 20:30; Status UNV Aspirin (Children'S Aspirin) 81 mg DAILY PO Last administered on 05/09/17 09: 34; Start 04/24/17 at 09:00 Bisacodyl (Dulcolax Supp) 10 mg PRN DAILY PRN RC CONSTIPATION; Start 04/23/17 at 20:30 Ketotifen Fumarate (Zaditor) 1 drop BID OU Last administered on 05/08/17 19:33 ; Start 04/23/17 at 21:00 Al Hydroxide/Mg Hydroxide (Mylanta Plus Xs) 15 ml PRN AFTMEALHC PRN PO DYSPEPSIA; Start 04/23/17 at 20:30; Status UNV Artificial Tears (Refresh Classic) 1 drop PRN QID PRN OD DRY EYE; Start at 20:45 Vitamin D (Vitamin D3) 4,000 unit DAILY PO Last administered on 05/08/17 09:43 ; Start 04/24/17 at 09:00 Non-Formulary Medication 2,400 mg PRN QHS PRN PO CONSTIPATION; Start 04/23/17 at 20:30; Status UNV Fluticasone Propionate (Flonase) 2 spray DAILY NS Last administered on 08:23; Start 04/24/17 at 09:00 Olanzapine (ZyPREXA ZYDIS) 2.5 mg PRN Q2HR PRN PO PSYCHOSIS Last administered on 05/07/17 05:29; Start 04/24/17 at 08:00 Carbidopa/Levodopa (Sinemet Cr) 1 tab.sa TID PO Last administered on 05/09/17 09:34; Start 04/24/17 at 21:00 Atorvastatin Calcium (Lipitor) 20 mg QHS PO Last administered on 05/08/17 19: 32; Start 04/25/17 at 21:00 Quetiapine Fumarate (SEROquel) 12.5 mg BID92 PO Last administered on 04/27/17 15:12; Start 04/26/17 at 09:00; Stop 04/27/17 at 19:24; Status DC Benztropine Mesylate (Cogentin) 0.5 mg BID PO Last administered on 05/03/17 11 :02; Start 04/26/17 at 21:00; Stop 05/03/17 at 14:31; Status DC Quetiapine Fumarate (SEROquel) 12.5 mg TID@0900,1400,1800 PO Last administered on 04/29/17 18:08; Start 04/28/17 at 09:00; Stop 04/29/17 at 18:15; Status DC Quetiapine Fumarate (SEROquel) 12.5 mg QID PO Last administered on 05/01/17 16 :42; Start 04/29/17 at 21:00; Stop 05/01/17 at 18:33; Status DC Quetiapine Fumarate (SEROquel) 12.5 mg BID@0900,2100 PO Last administered on 11:40; Start 05/01/17 at 21:00; Stop 05/02/17 at 18:32; Status DC Quetiapine Fumarate (SEROquel) 25 mg BID@1300,1700 PO Last administered on 05/02 16:58; Start 05/02/17 at 13:00; Stop 05/02/17 at 18:32; Status DC Quetiapine Fumarate (SEROquel) 25 mg QID PO Last administered on 05/05/17 13: 00; Start 05/02/17 at 21:00; Stop 05/05/17 at 16:59; Status DC Benztropine Mesylate (Cogentin) 1 mg BID PO Last administered on 05/09/17 09: 34; Start 05/03/17 at 21:00 Quetiapine Fumarate (SEROquel) 37.5 mg DAILY PO Last administered on 05/09/17 09:35; Start 05/06/17 at 09:00 Quetiapine Fumarate (SEROquel) 25 mg NOON PO Last administered on 05/08/17 12: 57; Start 05/06/17 at 12:00 Quetiapine Fumarate (SEROquel) 37.5 mg DAILYWSUP PO Last administered on 17:02; Start 05/05/17 at 17:00 Quetiapine Fumarate (SEROquel) 25 mg QHS PO Last administered on 05/08/17 19: 32; Start 05/05/17 at 21:00 Active Scripts Active Reported Nasacort (Triamcinolone Acetonide) 10.8 Ml [place] 2 Sprays NS DAILY [place] (Ketotifen Fumarate) 10 Ml Drops 1 Drop EACHEYE BID Bisacodyl 10 Mg Supp.rect 10 Mg RC PRN DAILY PRN Benadryl (Diphenhydramine Hcl) 25 Mg Capsule 12.5 Mg PO PRN BID PRN Refresh Tears (Carboxymethylcellulose Sodium) 15 Ml Drops 1 Drop OD PRN QID PRN Lorazepam 0.5 Mg Tablet 0.5 Mg TP PRN Q6HRS PRN Seroquel (Quetiapine Fumarate) 25 Mg Tablet 25 Mg PO PRN DAILY PRN Aspirin 81 Mg Tab.chew 81 Mg PO DAILY Maalox Maximum Strength Susp (Mag Hydrox/Al Hydrox/Simeth) 355 Ml Oral.susp 15 Ml PO PRN AFTMEALHC PRN Milk Of Magnesia (Magnesium Hydroxide) 2,400 Mg/10 Ml Oral.susp 2,400 Mg PO PRN QHS PRN Tylenol (Acetaminophen) 325 Mg Tablet 650 Mg PO PRN Q6HRS PRN Cymbalta (Duloxetine Hcl) 60 Mg Capsule.dr 60 Mg PO DAILY DO NOT CRUSH OR CHEW Vitamin D3 (Cholecalciferol (Vitamin D3)) 5,000 Unit Tablet 4,000 Unit PO DAILY Abilify (Aripiprazole) 5 Mg Tablet 10 Mg PO DAILY Loratadine 10 Mg Tablet 10 Mg PO DAILY Ativan (Lorazepam) 1 Mg Tablet 0.5 Mg PO BID PRN Namenda (Memantine Hcl) 10 Mg Tablet 10 Mg PO BID Aricept (Donepezil Hcl) 10 Mg Tablet 10 Mg PO DAILY Depakote Sprinkle (Divalproex Sodium) 125 Mg Cap.sprink 500 Mg PO TID GIVE WITH FOOD. Diagnosis: Problems: (1) Dementia in Alzheimer's disease with delusions (2) Dementia in Alzheimer's disease with depression (3) Dementia, vascular, with delusions (4) Dementia, vascular, with depression (5) Impulse control disorder (6) Anxiety disorder ISACC WEAVER MD May 09, 2017 10:18
[2017-05-09 15:57] VITALS: BP 98/55
[2017-05-09] MEDS: ATORVASTATIN CALCIUM 20 MG TABLET PO SCH (19:28)
--- NOTE | 2017-05-09 19:57 | PDOC ---
Exam Mj Demential Exam: Mj Note: Please also refer to the separate dictated note~for this date of service dictated separately.~Patient seen individually. Discussed the patient with Nursing staff reviewed the chart.~Reviewed interim history and current functioning. Reviewed vital signs,~Labs/ Radiology~and current medications noted below. Continue current treatment with the changes noted in the dictated addendum note Assessment: Vital Signs: Vital Signs Date Time Temp Pulse Resp B/P (MAP) Pulse Ox O2 Delivery O2 Flow Rate FiO2 05/09/17 15:57 97.2 78 17 98/55 (69) 97 05/04/17 16:26 Room Air I&O Intake and Output 05/09/17 06:59 Intake Total 720 ml Balance 720 ml Intake Oral 720 ml # Voids 1 # Bowel Movements 2 Current Medications: Meds: Current Medications Acetaminophen (Tylenol) 650 mg PRN Q6HRS PRN PO PAIN / TEMP Last administered on 04/30/17 18:52; Start 04/23/17 at 17:15 Multi-Ingredient Ointment (Analgesic [place]) 1 ana maría PRN QID PRN TP MUSCLE PAIN; Start 04/23/17 at 17:15 Al Hydroxide/Mg Hydroxide (Mylanta Plus Xs) 15 ml PRN AFTMEALHC PRN PO DYSPEPSIA; Start 04/23/17 at 17:15 Magnesium Hydroxide (Milk Of Magnesia) 2,400 mg PRN QHS PRN PO CONSTIPATION Last administered on 04/29/17 14:31; Start 04/23/17 at 17:15 Aripiprazole (Abilify) 10 mg DAILY PO Last administered on 04/24/17 08:44; Start 04/24/17 at 09:00; Stop 04/24/17 at 19:02; Status DC Divalproex Sodium (Depakote Sprinkles) 500 mg TID PO Last administered on 19:30; Start 04/23/17 at 21:00 Donepezil HCl (Aricept) 10 mg DAILY PO Last administered on 05/09/17 09:34; Start 04/24/17 at 09:00 Duloxetine HCl (Cymbalta) 60 mg DAILY PO Last administered on 05/09/17 09:34; Start 04/24/17 at 09:00 Lorazepam (Ativan) 0.5 mg PRN Q6HRS PRN TP ANXIETY / AGITATION Last administered on 05/02/17 22:21; Start 04/25/17 at 12:00 Lorazepam (Ativan) 0.5 mg PRN BID PRN PO ANXIETY / AGITATION; Start 04/23/17 at 18:00 Memantine (Namenda) 10 mg BID PO Last administered on 05/09/17 19:30; Start at 21:00 Quetiapine Fumarate (SEROquel) 25 mg PRN DAILY PRN PO PSYCHOSIS; Start 04/23/17 at 18:00 Acetaminophen (Tylenol) 650 mg PRN Q6HRS PRN PO PAIN / TEMP; Start 04/23/17 at 20:30; Status UNV Aspirin (Children'S Aspirin) 81 mg DAILY PO Last administered on 05/09/17 09: 34; Start 04/24/17 at 09:00 Bisacodyl (Dulcolax Supp) 10 mg PRN DAILY PRN RC CONSTIPATION; Start 04/23/17 at 20:30 Ketotifen Fumarate (Zaditor) 1 drop BID OU Last administered on 05/09/17 19:31 ; Start 04/23/17 at 21:00 Al Hydroxide/Mg Hydroxide (Mylanta Plus Xs) 15 ml PRN AFTMEALHC PRN PO DYSPEPSIA; Start 04/23/17 at 20:30; Status UNV Artificial Tears (Refresh [place]) 1 drop PRN QID PRN OD DRY EYE; Start at 20:45 Vitamin D (Vitamin D3) 4,000 unit DAILY PO Last administered on 05/08/17 09:43 ; Start 04/24/17 at 09:00 Non-Formulary Medication 2,400 mg PRN QHS PRN PO CONSTIPATION; Start 04/23/17 at 20:30; Status UNV Fluticasone Propionate (Flonase) 2 spray DAILY NS Last administered on 08:23; Start 04/24/17 at 09:00 Olanzapine (ZyPREXA ZYDIS) 2.5 mg PRN Q2HR PRN PO PSYCHOSIS Last administered on 05/07/17 05:29; Start 04/24/17 at 08:00 Carbidopa/Levodopa (Sinemet Cr) 1 tab.sa TID PO Last administered on 05/09/17 19:28; Start 04/24/17 at 21:00 Atorvastatin Calcium (Lipitor) 20 mg QHS PO Last administered on 05/09/17 19: 28; Start 04/25/17 at 21:00 Quetiapine Fumarate (SEROquel) 12.5 mg BID92 PO Last administered on 04/27/17 15:12; Start 04/26/17 at 09:00; Stop 04/27/17 at 19:24; Status DC Benztropine Mesylate (Cogentin) 0.5 mg BID PO Last administered on 05/03/17 11 :02; Start 04/26/17 at 21:00; Stop 05/03/17 at 14:31; Status DC Quetiapine Fumarate (SEROquel) 12.5 mg TID@0900,1400,1800 PO Last administered on 04/29/17 18:08; Start 04/28/17 at 09:00; Stop 04/29/17 at 18:15; Status DC Quetiapine Fumarate (SEROquel) 12.5 mg QID PO Last administered on 05/01/17 16 :42; Start 04/29/17 at 21:00; Stop 05/01/17 at 18:33; Status DC Quetiapine Fumarate (SEROquel) 12.5 mg BID@0900,2100 PO Last administered on 11:40; Start 05/01/17 at 21:00; Stop 05/02/17 at 18:32; Status DC Quetiapine Fumarate (SEROquel) 25 mg BID@1300,1700 PO Last administered on 05/02 16:58; Start 05/02/17 at 13:00; Stop 05/02/17 at 18:32; Status DC Quetiapine Fumarate (SEROquel) 25 mg QID PO Last administered on 05/05/17 13: 00; Start 05/02/17 at 21:00; Stop 05/05/17 at 16:59; Status DC Benztropine Mesylate (Cogentin) 1 mg BID PO Last administered on 05/09/17 19: 30; Start 05/03/17 at 21:00 Quetiapine Fumarate (SEROquel) 37.5 mg DAILY PO Last administered on 05/09/17 09:35; Start 05/06/17 at 09:00 Quetiapine Fumarate (SEROquel) 25 mg NOON PO Last administered on 05/09/17 13: 05; Start 05/06/17 at 12:00 Quetiapine Fumarate (SEROquel) 37.5 mg DAILYWSUP PO Last administered on 18:19; Start 05/05/17 at 17:00 Quetiapine Fumarate (SEROquel) 25 mg QHS PO Last administered on 05/09/17 19: 28; Start 05/05/17 at 21:00 Active Scripts Active Reported Nasacort (Triamcinolone Acetonide) 10.8 Ml [place] 2 Sprays NS DAILY [place] (Ketotifen Fumarate) 10 Ml Drops 1 Drop EACHEYE BID Bisacodyl 10 Mg Supp.rect 10 Mg RC PRN DAILY PRN Benadryl (Diphenhydramine Hcl) 25 Mg Capsule 12.5 Mg PO PRN BID PRN Refresh Tears (Carboxymethylcellulose Sodium) 15 Ml Drops 1 Drop OD PRN QID PRN Lorazepam 0.5 Mg Tablet 0.5 Mg TP PRN Q6HRS PRN Seroquel (Quetiapine Fumarate) 25 Mg Tablet 25 Mg PO PRN DAILY PRN Aspirin 81 Mg Tab.chew 81 Mg PO DAILY Maalox Maximum Strength Susp (Mag Hydrox/Al Hydrox/Simeth) 355 Ml Oral.susp 15 Ml PO PRN AFTMEALHC PRN Milk Of Magnesia (Magnesium Hydroxide) 2,400 Mg/10 Ml Oral.susp 2,400 Mg PO PRN QHS PRN Tylenol (Acetaminophen) 325 Mg Tablet 650 Mg PO PRN Q6HRS PRN Cymbalta (Duloxetine Hcl) 60 Mg Capsule.dr 60 Mg PO DAILY DO NOT CRUSH OR CHEW Vitamin D3 (Cholecalciferol (Vitamin D3)) 5,000 Unit Tablet 4,000 Unit PO DAILY Abilify (Aripiprazole) 5 Mg Tablet 10 Mg PO DAILY Loratadine 10 Mg Tablet 10 Mg PO DAILY Ativan (Lorazepam) 1 Mg Tablet 0.5 Mg PO BID PRN Namenda (Memantine Hcl) 10 Mg Tablet 10 Mg PO BID Aricept (Donepezil Hcl) 10 Mg Tablet 10 Mg PO DAILY Depakote Sprinkle (Divalproex Sodium) 125 Mg Cap.sprink 500 Mg PO TID GIVE WITH FOOD. Diagnosis: Problems: (1) Anxiety disorder (2) Impulse control disorder (3) Dementia, vascular, with depression (4) Dementia, vascular, with delusions (5) Dementia in Alzheimer's disease with depression (6) Dementia in Alzheimer's disease with delusions ISACC WEAVER MD May 09, 2017 19:57
--- NOTE | 2017-05-10 01:12 | PN ---
DATE: 05/08/2017 This late entry 05/08/2017 covers elements not covered in my initial note of 05/08/2017. SUBJECTIVE: The patient was staffed at a treatment team meeting with the entire team morning of 05/08/2017, seen individually evening of 05/08/2017. Overall, per nursing report, the patient remains confused. At the treatment team meeting reviewed his history at length, progress, discharge, plans, current psychotropics. Gait is somewhat unsteady pacing in the evening, sleeping better, danced with music the day before. REVIEW OF SYSTEMS: No CV, , pulmonary, eye, ENT system symptoms on review. Reliability poor. MENTAL STATUS EXAM: Oriented to himself. Insight, judgment, recent and remote memory, attention, concentration, fund of knowledge poor, consistent with his diagnosis. IMPRESSION: Major neurocognitive disorder, Alzheimer, vascular with delusion, depression, behavioral disturbance; possible major neurocognitive disorder, Lewy body with delusion, depression, behavioral disturbance, anxiety disorder; unspecified, impulse control disorder; unspecified. Rest unchanged. PLAN: Continue current psychotropics reviewed and drug interactions, risk/benefit ratio favors no further change as of this time. MAN Mary WEAVER MD DR: MARIAM/piter JOB#: [id number] / [id number]
--- NOTE | 2017-05-10 04:25 | PN ---
DATE: 05/09/2017 PSYCHIATRIC PROGRESS NOTE This note covers elements not covered in my initial note of 05/09/2017. SUBJECTIVE: I met with the patient individually on the morning of 05/09/2017 for this evaluation. Per nursing report, the patient was agitated, swinging at staff this morning when they were administering his medications. REVIEW OF SYSTEMS: No CV, , pulmonary, eye, ENT system symptoms on review. Reliability poor. He is not very forthcoming verbally on questioning on review of systems. MENTAL STATUS EXAM: Oriented to himself. Insight, judgment, recent and remote memory, attention, concentration, fund of knowledge poor, consistent with his diagnosis. Not very verbal as I sat with him. LABORATORY DATA: Reviewed. IMPRESSION: Unchanged from initial note. PLAN: Continue current psychotropics mentioned in my initial note, reviewed drug interactions, risk/benefit ratio favors no further change as of now. ISACC WEAVER MD DR: MARIAM/piter JOB#: [id number] / [id number]
[2017-05-10 06:08] VITALS: BP 100/55
[2017-05-10] MEDS: KETOTIFEN FUMARATE 0.025% OPHT SOLUTION BOTTLE. OU SCH ×3 (09:00→19:33)
[2017-05-10] MEDS: FLUTICASONE 50MCG/NASAL SPRAY 16GM BOTTLE. NS SCH (09:00)
[2017-05-10] MEDS: QUEtiapine 25 MG TABLET. PO SCH ×4 (12:00→19:19)
[2017-05-10] MEDS: MEMANTINE 10 MG TABLET. PO SCH ×2 (12:20→19:19)
[2017-05-10] MEDS: BENZTROPINE MESYLATE 1 MG TABLET PO SCH ×2 (12:20→19:19)
[2017-05-10] MEDS: DULoxetine HCL 60 MG CAPSULE.DR PO SCH (12:20)
[2017-05-10] MEDS: DIVALPROEX 125 MG CAP.SPRINK PO SCH ×3 (12:21→19:19)
[2017-05-10] MEDS: ASPIRIN 81 MG TAB.CHEW PO SCH (12:21)
[2017-05-10] MEDS: CHOLECALCIFEROL (VITAMIN D3) 1,000 UNIT TABLET PO SCH (12:21)
[2017-05-10] MEDS: DONEPEZIL HCL 10 MG TABLET PO SCH (12:21)
[2017-05-10] MEDS: CARBIDOPA/LEVODOPA CR 25/100MG TABLET.SA PO SCH ×3 (12:22→19:19)
[2017-05-10 15:43] VITALS: BP 99/57
[2017-05-10] MEDS: ATORVASTATIN CALCIUM 20 MG TABLET PO SCH (19:19)
[2017-05-11 06:42] VITALS: BP 94/61
[2017-05-11] MEDS: KETOTIFEN FUMARATE 0.025% OPHT SOLUTION BOTTLE. OU SCH ×2 (09:00→19:48)
[2017-05-11] MEDS: FLUTICASONE 50MCG/NASAL SPRAY 16GM BOTTLE. NS SCH (09:00)
[2017-05-11] MEDS: DULoxetine HCL 60 MG CAPSULE.DR PO SCH (09:43)
[2017-05-11] MEDS: ASPIRIN 81 MG TAB.CHEW PO SCH (09:43)
[2017-05-11] MEDS: DONEPEZIL HCL 10 MG TABLET PO SCH (09:43)
[2017-05-11] MEDS: BENZTROPINE MESYLATE 1 MG TABLET PO SCH ×2 (09:43→19:47)
[2017-05-11] MEDS: MEMANTINE 10 MG TABLET. PO SCH ×2 (09:44→19:47)
[2017-05-11] MEDS: DIVALPROEX 125 MG CAP.SPRINK PO SCH ×3 (09:44→19:47)
[2017-05-11] MEDS: CHOLECALCIFEROL (VITAMIN D3) 1,000 UNIT TABLET PO SCH (09:45)
[2017-05-11] MEDS: QUEtiapine 25 MG TABLET. PO SCH ×4 (09:45→19:47)
[2017-05-11] MEDS: CARBIDOPA/LEVODOPA CR 25/100MG TABLET.SA PO SCH ×3 (09:45→19:47)
[2017-05-11 16:45] VITALS: BP 94/60
[2017-05-11] MEDS: ATORVASTATIN CALCIUM 20 MG TABLET PO SCH (19:47)
--- NOTE | 2017-05-11 19:49 | PDOC ---
Exam Mj Demential Exam: Mj Note: Please also refer to the separate dictated note~for this date of service dictated separately.~Patient seen individually. Discussed the patient with Nursing staff reviewed the chart.~Reviewed interim history and current functioning. Reviewed vital signs,~Labs/ Radiology~and current medications noted below. Continue current treatment with the changes noted in the dictated addendum note Assessment: Vital Signs: Vital Signs Date Time Temp Pulse Resp B/P (MAP) Pulse Ox O2 Delivery O2 Flow Rate FiO2 05/11/17 16:45 97.8 63 20 94/60 (71) 100 05/10/17 15:43 Room Air I&O Intake and Output 05/11/17 06:59 Intake Total 1040 ml Balance 1040 ml Intake Oral 1040 ml # Bowel Movements 2 Current Medications: Meds: Current Medications Acetaminophen (Tylenol) 650 mg PRN Q6HRS PRN PO PAIN / TEMP Last administered on 04/30/17 18:52; Start 04/23/17 at 17:15 Multi-Ingredient Ointment (Analgesic [place]) 1 ana maría PRN QID PRN TP MUSCLE PAIN; Start 04/23/17 at 17:15 Al Hydroxide/Mg Hydroxide (Mylanta Plus Xs) 15 ml PRN AFTMEALHC PRN PO DYSPEPSIA; Start 04/23/17 at 17:15 Magnesium Hydroxide (Milk Of Magnesia) 2,400 mg PRN QHS PRN PO CONSTIPATION Last administered on 04/29/17 14:31; Start 04/23/17 at 17:15 Aripiprazole (Abilify) 10 mg DAILY PO Last administered on 04/24/17 08:44; Start 04/24/17 at 09:00; Stop 04/24/17 at 19:02; Status DC Divalproex Sodium (Depakote Sprinkles) 500 mg TID PO Last administered on 19:47; Start 04/23/17 at 21:00 Donepezil HCl (Aricept) 10 mg DAILY PO Last administered on 05/11/17 09:43; Start 04/24/17 at 09:00 Duloxetine HCl (Cymbalta) 60 mg DAILY PO Last administered on 05/11/17 09:43; Start 04/24/17 at 09:00 Lorazepam (Ativan) 0.5 mg PRN Q6HRS PRN TP ANXIETY / AGITATION Last administered on 05/02/17 22:21; Start 04/25/17 at 12:00 Lorazepam (Ativan) 0.5 mg PRN BID PRN PO ANXIETY / AGITATION; Start 04/23/17 at 18:00 Memantine (Namenda) 10 mg BID PO Last administered on 05/11/17 19:47; Start at 21:00 Quetiapine Fumarate (SEROquel) 25 mg PRN DAILY PRN PO PSYCHOSIS; Start 04/23/17 at 18:00 Acetaminophen (Tylenol) 650 mg PRN Q6HRS PRN PO PAIN / TEMP; Start 04/23/17 at 20:30; Status UNV Aspirin (Children'S Aspirin) 81 mg DAILY PO Last administered on 05/11/17 09: 43; Start 04/24/17 at 09:00 Bisacodyl (Dulcolax Supp) 10 mg PRN DAILY PRN RC CONSTIPATION; Start 04/23/17 at 20:30 Ketotifen Fumarate (Zaditor) 1 drop BID OU Last administered on 05/11/17 19:48 ; Start 04/23/17 at 21:00 Al Hydroxide/Mg Hydroxide (Mylanta Plus Xs) 15 ml PRN AFTMEALHC PRN PO DYSPEPSIA; Start 04/23/17 at 20:30; Status UNV Artificial Tears (Refresh Classic) 1 drop PRN QID PRN OD DRY EYE; Start at 20:45 Vitamin D (Vitamin D3) 4,000 unit DAILY PO Last administered on 05/11/17 09:45 ; Start 04/24/17 at 09:00 Non-Formulary Medication 2,400 mg PRN QHS PRN PO CONSTIPATION; Start 04/23/17 at 20:30; Status UNV Fluticasone Propionate (Flonase) 2 spray DAILY NS Last administered on 08:23; Start 04/24/17 at 09:00 Olanzapine (ZyPREXA ZYDIS) 2.5 mg PRN Q2HR PRN PO PSYCHOSIS Last administered on 05/07/17 05:29; Start 04/24/17 at 08:00 Carbidopa/Levodopa (Sinemet Cr) 1 tab.sa TID PO Last administered on 05/11/17 19:47; Start 04/24/17 at 21:00 Atorvastatin Calcium (Lipitor) 20 mg QHS PO Last administered on 05/11/17 19: 47; Start 04/25/17 at 21:00 Quetiapine Fumarate (SEROquel) 12.5 mg BID92 PO Last administered on 04/27/17 15:12; Start 04/26/17 at 09:00; Stop 04/27/17 at 19:24; Status DC Benztropine Mesylate (Cogentin) 0.5 mg BID PO Last administered on 05/03/17 11 :02; Start 04/26/17 at 21:00; Stop 05/03/17 at 14:31; Status DC Quetiapine Fumarate (SEROquel) 12.5 mg TID@0900,1400,1800 PO Last administered on 04/29/17 18:08; Start 04/28/17 at 09:00; Stop 04/29/17 at 18:15; Status DC Quetiapine Fumarate (SEROquel) 12.5 mg QID PO Last administered on 05/01/17 16 :42; Start 04/29/17 at 21:00; Stop 05/01/17 at 18:33; Status DC Quetiapine Fumarate (SEROquel) 12.5 mg BID@0900,2100 PO Last administered on 11:40; Start 05/01/17 at 21:00; Stop 05/02/17 at 18:32; Status DC Quetiapine Fumarate (SEROquel) 25 mg BID@1300,1700 PO Last administered on 05/02 16:58; Start 05/02/17 at 13:00; Stop 05/02/17 at 18:32; Status DC Quetiapine Fumarate (SEROquel) 25 mg QID PO Last administered on 05/05/17 13: 00; Start 05/02/17 at 21:00; Stop 05/05/17 at 16:59; Status DC Benztropine Mesylate (Cogentin) 1 mg BID PO Last administered on 05/11/17 19: 47; Start 05/03/17 at 21:00 Quetiapine Fumarate (SEROquel) 37.5 mg DAILY PO Last administered on 05/11/17 09:45; Start 05/06/17 at 09:00 Quetiapine Fumarate (SEROquel) 25 mg NOON PO Last administered on 05/11/17 12: 57; Start 05/06/17 at 12:00 Quetiapine Fumarate (SEROquel) 37.5 mg DAILYWSUP PO Last administered on 17:05; Start 05/05/17 at 17:00 Quetiapine Fumarate (SEROquel) 25 mg QHS PO Last administered on 05/11/17 19: 47; Start 05/05/17 at 21:00 Active Scripts Active Reported Nasacort (Triamcinolone Acetonide) 10.8 Ml [place] 2 Sprays NS DAILY [place] (Ketotifen Fumarate) 10 Ml Drops 1 Drop EACHEYE BID Bisacodyl 10 Mg Supp.rect 10 Mg RC PRN DAILY PRN Benadryl (Diphenhydramine Hcl) 25 Mg Capsule 12.5 Mg PO PRN BID PRN Refresh Tears (Carboxymethylcellulose Sodium) 15 Ml Drops 1 Drop OD PRN QID PRN Lorazepam 0.5 Mg Tablet 0.5 Mg TP PRN Q6HRS PRN Seroquel (Quetiapine Fumarate) 25 Mg Tablet 25 Mg PO PRN DAILY PRN Aspirin 81 Mg Tab.chew 81 Mg PO DAILY Maalox Maximum Strength Susp (Mag Hydrox/Al Hydrox/Simeth) 355 Ml Oral.susp 15 Ml PO PRN AFTMEALHC PRN Milk Of Magnesia (Magnesium Hydroxide) 2,400 Mg/10 Ml Oral.susp 2,400 Mg PO PRN QHS PRN Tylenol (Acetaminophen) 325 Mg Tablet 650 Mg PO PRN Q6HRS PRN Cymbalta (Duloxetine Hcl) 60 Mg Capsule.dr 60 Mg PO DAILY DO NOT CRUSH OR CHEW Vitamin D3 (Cholecalciferol (Vitamin D3)) 5,000 Unit Tablet 4,000 Unit PO DAILY Abilify (Aripiprazole) 5 Mg Tablet 10 Mg PO DAILY Loratadine 10 Mg Tablet 10 Mg PO DAILY Ativan (Lorazepam) 1 Mg Tablet 0.5 Mg PO BID PRN Namenda (Memantine Hcl) 10 Mg Tablet 10 Mg PO BID Aricept (Donepezil Hcl) 10 Mg Tablet 10 Mg PO DAILY Depakote Sprinkle (Divalproex Sodium) 125 Mg Cap.sprink 500 Mg PO TID GIVE WITH FOOD. Diagnosis: Problems: (1) Anxiety disorder (2) Impulse control disorder (3) Dementia, vascular, with depression (4) Dementia, vascular, with delusions (5) Dementia in Alzheimer's disease with depression (6) Dementia in Alzheimer's disease with delusions ISACC WEAVER MD May 11, 2017 19:49
[2017-05-12 06:05] VITALS: BP 116/72
[2017-05-12] MEDS: FLUTICASONE 50MCG/NASAL SPRAY 16GM BOTTLE. NS SCH (09:00)
[2017-05-12] MEDS: KETOTIFEN FUMARATE 0.025% OPHT SOLUTION BOTTLE. OU SCH ×2 (09:00→19:54)
[2017-05-12] MEDS: MEMANTINE 10 MG TABLET. PO SCH ×2 (09:44→19:52)
[2017-05-12] MEDS: DONEPEZIL HCL 10 MG TABLET PO SCH (09:44)
[2017-05-12] MEDS: ASPIRIN 81 MG TAB.CHEW PO SCH (09:44)
[2017-05-12] MEDS: QUEtiapine 25 MG TABLET. PO SCH ×4 (09:44→19:52)
[2017-05-12] MEDS: BENZTROPINE MESYLATE 1 MG TABLET PO SCH ×2 (09:44→19:52)
[2017-05-12] MEDS: DIVALPROEX 125 MG CAP.SPRINK PO SCH ×3 (09:44→19:52)
[2017-05-12] MEDS: DULoxetine HCL 60 MG CAPSULE.DR PO SCH (09:44)
[2017-05-12] MEDS: CHOLECALCIFEROL (VITAMIN D3) 1,000 UNIT TABLET PO SCH (09:45)
[2017-05-12] MEDS: CARBIDOPA/LEVODOPA CR 25/100MG TABLET.SA PO SCH ×3 (09:45→19:52)
[2017-05-12 15:50] VITALS: BP 91/60
[2017-05-12] MEDS: ATORVASTATIN CALCIUM 20 MG TABLET PO SCH (19:52)
--- NOTE | 2017-05-12 19:56 | PDOC ---
Exam Mj Demential Exam: Mj Note: Please also refer to the separate dictated note~for this date of service dictated separately.~Patient seen individually. Discussed the patient with Nursing staff reviewed the chart.~Reviewed interim history and current functioning. Reviewed vital signs,~Labs/ Radiology~and current medications noted below. Continue current treatment with the changes noted in the dictated addendum note Assessment: Vital Signs: Vital Signs Date Time Temp Pulse Resp B/P (MAP) Pulse Ox O2 Delivery O2 Flow Rate FiO2 05/12/17 15:50 97.9 80 18 91/60 (70) 97 05/10/17 15:43 Room Air I&O Intake and Output 05/12/17 07:00 Intake Total 780 ml Balance 780 ml Intake Oral 780 ml # Voids 2 # Bowel Movements 2 Current Medications: Meds: Current Medications Acetaminophen (Tylenol) 650 mg PRN Q6HRS PRN PO PAIN / TEMP Last administered on 04/30/17 18:52; Start 04/23/17 at 17:15 Multi-Ingredient Ointment (Analgesic [place]) 1 ana maría PRN QID PRN TP MUSCLE PAIN; Start 04/23/17 at 17:15 Al Hydroxide/Mg Hydroxide (Mylanta Plus Xs) 15 ml PRN AFTMEALHC PRN PO DYSPEPSIA; Start 04/23/17 at 17:15 Magnesium Hydroxide (Milk Of Magnesia) 2,400 mg PRN QHS PRN PO CONSTIPATION Last administered on 04/29/17 14:31; Start 04/23/17 at 17:15 Aripiprazole (Abilify) 10 mg DAILY PO Last administered on 04/24/17 08:44; Start 04/24/17 at 09:00; Stop 04/24/17 at 19:02; Status DC Divalproex Sodium (Depakote Sprinkles) 500 mg TID PO Last administered on 19:52; Start 04/23/17 at 21:00 Donepezil HCl (Aricept) 10 mg DAILY PO Last administered on 05/12/17 09:44; Start 04/24/17 at 09:00 Duloxetine HCl (Cymbalta) 60 mg DAILY PO Last administered on 05/12/17 09:44; Start 04/24/17 at 09:00 Lorazepam (Ativan) 0.5 mg PRN Q6HRS PRN TP ANXIETY / AGITATION Last administered on 05/02/17 22:21; Start 04/25/17 at 12:00 Lorazepam (Ativan) 0.5 mg PRN BID PRN PO ANXIETY / AGITATION; Start 04/23/17 at 18:00 Memantine (Namenda) 10 mg BID PO Last administered on 05/12/17 19:52; Start at 21:00 Quetiapine Fumarate (SEROquel) 25 mg PRN DAILY PRN PO PSYCHOSIS; Start 04/23/17 at 18:00 Acetaminophen (Tylenol) 650 mg PRN Q6HRS PRN PO PAIN / TEMP; Start 04/23/17 at 20:30; Status UNV Aspirin (Children'S Aspirin) 81 mg DAILY PO Last administered on 05/12/17 09: 44; Start 04/24/17 at 09:00 Bisacodyl (Dulcolax Supp) 10 mg PRN DAILY PRN RC CONSTIPATION; Start 04/23/17 at 20:30 Ketotifen Fumarate (Zaditor) 1 drop BID OU Last administered on 05/12/17 19:54 ; Start 04/23/17 at 21:00 Al Hydroxide/Mg Hydroxide (Mylanta Plus Xs) 15 ml PRN AFTMEALHC PRN PO DYSPEPSIA; Start 04/23/17 at 20:30; Status UNV Artificial Tears (Refresh Classic) 1 drop PRN QID PRN OD DRY EYE; Start at 20:45 Vitamin D (Vitamin D3) 4,000 unit DAILY PO Last administered on 05/12/17 09:45 ; Start 04/24/17 at 09:00 Non-Formulary Medication 2,400 mg PRN QHS PRN PO CONSTIPATION; Start 04/23/17 at 20:30; Status UNV Fluticasone Propionate (Flonase) 2 spray DAILY NS Last administered on 08:23; Start 04/24/17 at 09:00 Olanzapine (ZyPREXA ZYDIS) 2.5 mg PRN Q2HR PRN PO PSYCHOSIS Last administered on 05/07/17 05:29; Start 04/24/17 at 08:00 Carbidopa/Levodopa (Sinemet Cr) 1 tab.sa TID PO Last administered on 05/12/17 19:52; Start 04/24/17 at 21:00 Atorvastatin Calcium (Lipitor) 20 mg QHS PO Last administered on 05/12/17 19: 52; Start 04/25/17 at 21:00 Quetiapine Fumarate (SEROquel) 12.5 mg BID92 PO Last administered on 04/27/17 15:12; Start 04/26/17 at 09:00; Stop 04/27/17 at 19:24; Status DC Benztropine Mesylate (Cogentin) 0.5 mg BID PO Last administered on 05/03/17 11 :02; Start 04/26/17 at 21:00; Stop 05/03/17 at 14:31; Status DC Quetiapine Fumarate (SEROquel) 12.5 mg TID@0900,1400,1800 PO Last administered on 04/29/17 18:08; Start 04/28/17 at 09:00; Stop 04/29/17 at 18:15; Status DC Quetiapine Fumarate (SEROquel) 12.5 mg QID PO Last administered on 05/01/17 16 :42; Start 04/29/17 at 21:00; Stop 05/01/17 at 18:33; Status DC Quetiapine Fumarate (SEROquel) 12.5 mg BID@0900,2100 PO Last administered on 11:40; Start 05/01/17 at 21:00; Stop 05/02/17 at 18:32; Status DC Quetiapine Fumarate (SEROquel) 25 mg BID@1300,1700 PO Last administered on 05/02 16:58; Start 05/02/17 at 13:00; Stop 05/02/17 at 18:32; Status DC Quetiapine Fumarate (SEROquel) 25 mg QID PO Last administered on 05/05/17 13: 00; Start 05/02/17 at 21:00; Stop 05/05/17 at 16:59; Status DC Benztropine Mesylate (Cogentin) 1 mg BID PO Last administered on 05/12/17 19: 52; Start 05/03/17 at 21:00 Quetiapine Fumarate (SEROquel) 37.5 mg DAILY PO Last administered on 05/12/17 09:44; Start 05/06/17 at 09:00 Quetiapine Fumarate (SEROquel) 25 mg NOON PO Last administered on 05/12/17 13: 18; Start 05/06/17 at 12:00 Quetiapine Fumarate (SEROquel) 37.5 mg DAILYWSUP PO Last administered on 17:26; Start 05/05/17 at 17:00 Quetiapine Fumarate (SEROquel) 25 mg QHS PO Last administered on 05/12/17 19: 52; Start 05/05/17 at 21:00 Active Scripts Active Reported Nasacort (Triamcinolone Acetonide) 10.8 Ml [place] 2 Sprays NS DAILY [place] (Ketotifen Fumarate) 10 Ml Drops 1 Drop EACHEYE BID Bisacodyl 10 Mg Supp.rect 10 Mg RC PRN DAILY PRN Benadryl (Diphenhydramine Hcl) 25 Mg Capsule 12.5 Mg PO PRN BID PRN Refresh Tears (Carboxymethylcellulose Sodium) 15 Ml Drops 1 Drop OD PRN QID PRN Lorazepam 0.5 Mg Tablet 0.5 Mg TP PRN Q6HRS PRN Seroquel (Quetiapine Fumarate) 25 Mg Tablet 25 Mg PO PRN DAILY PRN Aspirin 81 Mg Tab.chew 81 Mg PO DAILY Maalox Maximum Strength Susp (Mag Hydrox/Al Hydrox/Simeth) 355 Ml Oral.susp 15 Ml PO PRN AFTMEALHC PRN Milk Of Magnesia (Magnesium Hydroxide) 2,400 Mg/10 Ml Oral.susp 2,400 Mg PO PRN QHS PRN Tylenol (Acetaminophen) 325 Mg Tablet 650 Mg PO PRN Q6HRS PRN Cymbalta (Duloxetine Hcl) 60 Mg Capsule.dr 60 Mg PO DAILY DO NOT CRUSH OR CHEW Vitamin D3 (Cholecalciferol (Vitamin D3)) 5,000 Unit Tablet 4,000 Unit PO DAILY Abilify (Aripiprazole) 5 Mg Tablet 10 Mg PO DAILY Loratadine 10 Mg Tablet 10 Mg PO DAILY Ativan (Lorazepam) 1 Mg Tablet 0.5 Mg PO BID PRN Namenda (Memantine Hcl) 10 Mg Tablet 10 Mg PO BID Aricept (Donepezil Hcl) 10 Mg Tablet 10 Mg PO DAILY Depakote Sprinkle (Divalproex Sodium) 125 Mg Cap.sprink 500 Mg PO TID GIVE WITH FOOD. Diagnosis: Problems: (1) Anxiety disorder (2) Impulse control disorder (3) Dementia, vascular, with depression (4) Dementia, vascular, with delusions (5) Dementia in Alzheimer's disease with depression (6) Dementia in Alzheimer's disease with delusions ISACC WEAVER MD May 12, 2017 19:56
[2017-05-13] MEDS: DULoxetine HCL 60 MG CAPSULE.DR PO SCH (08:45)
[2017-05-13] MEDS: BENZTROPINE MESYLATE 1 MG TABLET PO SCH ×2 (08:45→20:37)
[2017-05-13] MEDS: DONEPEZIL HCL 10 MG TABLET PO SCH (08:45)
[2017-05-13] MEDS: CARBIDOPA/LEVODOPA CR 25/100MG TABLET.SA PO SCH ×3 (08:45→20:37)
[2017-05-13] MEDS: QUEtiapine 25 MG TABLET. PO SCH ×4 (08:45→20:37)
[2017-05-13] MEDS: ASPIRIN 81 MG TAB.CHEW PO SCH (08:45)
[2017-05-13] MEDS: CHOLECALCIFEROL (VITAMIN D3) 1,000 UNIT TABLET PO SCH (08:45)
[2017-05-13] MEDS: MEMANTINE 10 MG TABLET. PO SCH ×2 (08:45→20:36)
[2017-05-13] MEDS: KETOTIFEN FUMARATE 0.025% OPHT SOLUTION BOTTLE. OU SCH ×2 (08:46→20:38)
[2017-05-13] MEDS: FLUTICASONE 50MCG/NASAL SPRAY 16GM BOTTLE. NS SCH (08:46)
[2017-05-13] MEDS: DIVALPROEX 125 MG CAP.SPRINK PO SCH ×3 (08:46→20:38)
[2017-05-13 10:22] VITALS: BP 102/65
--- NOTE | 2017-05-13 11:05 | PN ---
DATE: 05/11/2017 PSYCHIATRIC PROGRESS NOTE This is a late entry 05/11/2017, covers elements not covered in my initial note. SUBJECTIVE: I met with the patient evening of 05/11/2017. I also met with his at that time. The patient has been calm, compliant with medication and assessment, unsteady at times. Not aggressive. REVIEW OF SYSTEMS: No CV, , pulmonary, eye, ENT system symptoms on review. Reliability poor. MENTAL STATUS EXAM: Oriented to himself, not very verbal. Insight, judgment, recent and remote memory, attention, concentration, fund of knowledge poor, consistent with his diagnoses mentioned in my initial note. PLAN: Continue current psychotropics, review drug contractions, risk/benefit ratio favors no further change as of now. MAN Mary WEAVER MD DR: MARIAM/piter JOB#: [id number] / [id number]
[2017-05-13 15:56] VITALS: BP 110/58
--- NOTE | 2017-05-13 19:55 | PDOC ---
Exam Mj Demential Exam: Mj Note: Please also refer to the separate dictated note~for this date of service dictated separately.~Patient seen individually. Discussed the patient with Nursing staff reviewed the chart.~Reviewed interim history and current functioning. Reviewed vital signs,~Labs/ Radiology~and current medications noted below. Continue current treatment with the changes noted in the dictated addendum note Assessment: Vital Signs: Vital Signs Date Time Temp Pulse Resp B/P (MAP) Pulse Ox O2 Delivery O2 Flow Rate FiO2 05/13/17 15:56 97.9 67 17 110/58 (75) 99 05/10/17 15:43 Room Air I&O Intake and Output 05/14/17 07:00 Intake Total 960 ml Balance 960 ml Intake Oral 960 ml # Bowel Movements 1 Current Medications: Meds: Current Medications Acetaminophen (Tylenol) 650 mg PRN Q6HRS PRN PO PAIN / TEMP Last administered on 04/30/17 18:52; Start 04/23/17 at 17:15 Multi-Ingredient Ointment (Analgesic [place]) 1 ana maría PRN QID PRN TP MUSCLE PAIN; Start 04/23/17 at 17:15 Al Hydroxide/Mg Hydroxide (Mylanta Plus Xs) 15 ml PRN AFTMEALHC PRN PO DYSPEPSIA; Start 04/23/17 at 17:15 Magnesium Hydroxide (Milk Of Magnesia) 2,400 mg PRN QHS PRN PO CONSTIPATION Last administered on 04/29/17 14:31; Start 04/23/17 at 17:15 Aripiprazole (Abilify) 10 mg DAILY PO Last administered on 04/24/17 08:44; Start 04/24/17 at 09:00; Stop 04/24/17 at 19:02; Status DC Divalproex Sodium (Depakote Sprinkles) 500 mg TID PO Last administered on 13:06; Start 04/23/17 at 21:00 Donepezil HCl (Aricept) 10 mg DAILY PO Last administered on 05/13/17 08:45; Start 04/24/17 at 09:00 Duloxetine HCl (Cymbalta) 60 mg DAILY PO Last administered on 05/13/17 08:45; Start 04/24/17 at 09:00 Lorazepam (Ativan) 0.5 mg PRN Q6HRS PRN TP ANXIETY / AGITATION Last administered on 05/02/17 22:21; Start 04/25/17 at 12:00 Lorazepam (Ativan) 0.5 mg PRN BID PRN PO ANXIETY / AGITATION; Start 04/23/17 at 18:00 Memantine (Namenda) 10 mg BID PO Last administered on 05/13/17 08:45; Start at 21:00 Quetiapine Fumarate (SEROquel) 25 mg PRN DAILY PRN PO PSYCHOSIS; Start 04/23/17 at 18:00 Acetaminophen (Tylenol) 650 mg PRN Q6HRS PRN PO PAIN / TEMP; Start 04/23/17 at 20:30; Status UNV Aspirin (Children'S Aspirin) 81 mg DAILY PO Last administered on 05/13/17 08: 45; Start 04/24/17 at 09:00 Bisacodyl (Dulcolax Supp) 10 mg PRN DAILY PRN RC CONSTIPATION; Start 04/23/17 at 20:30 Ketotifen Fumarate (Zaditor) 1 drop BID OU Last administered on 05/12/17 19:54 ; Start 04/23/17 at 21:00 Al Hydroxide/Mg Hydroxide (Mylanta Plus Xs) 15 ml PRN AFTMEALHC PRN PO DYSPEPSIA; Start 04/23/17 at 20:30; Status UNV Artificial Tears (Refresh Classic) 1 drop PRN QID PRN OD DRY EYE; Start at 20:45 Vitamin D (Vitamin D3) 4,000 unit DAILY PO Last administered on 05/13/17 08:45 ; Start 04/24/17 at 09:00 Non-Formulary Medication 2,400 mg PRN QHS PRN PO CONSTIPATION; Start 04/23/17 at 20:30; Status UNV Fluticasone Propionate (Flonase) 2 spray DAILY NS Last administered on 08:23; Start 04/24/17 at 09:00 Olanzapine (ZyPREXA ZYDIS) 2.5 mg PRN Q2HR PRN PO PSYCHOSIS Last administered on 05/07/17 05:29; Start 04/24/17 at 08:00 Carbidopa/Levodopa (Sinemet Cr) 1 tab.sa TID PO Last administered on 05/13/17 13:06; Start 04/24/17 at 21:00 Atorvastatin Calcium (Lipitor) 20 mg QHS PO Last administered on 05/12/17 19: 52; Start 04/25/17 at 21:00 Quetiapine Fumarate (SEROquel) 12.5 mg BID92 PO Last administered on 04/27/17 15:12; Start 04/26/17 at 09:00; Stop 04/27/17 at 19:24; Status DC Benztropine Mesylate (Cogentin) 0.5 mg BID PO Last administered on 05/03/17 11 :02; Start 04/26/17 at 21:00; Stop 05/03/17 at 14:31; Status DC Quetiapine Fumarate (SEROquel) 12.5 mg TID@0900,1400,1800 PO Last administered on 04/29/17 18:08; Start 04/28/17 at 09:00; Stop 04/29/17 at 18:15; Status DC Quetiapine Fumarate (SEROquel) 12.5 mg QID PO Last administered on 05/01/17 16 :42; Start 04/29/17 at 21:00; Stop 05/01/17 at 18:33; Status DC Quetiapine Fumarate (SEROquel) 12.5 mg BID@0900,2100 PO Last administered on 11:40; Start 05/01/17 at 21:00; Stop 05/02/17 at 18:32; Status DC Quetiapine Fumarate (SEROquel) 25 mg BID@1300,1700 PO Last administered on 05/02 16:58; Start 05/02/17 at 13:00; Stop 05/02/17 at 18:32; Status DC Quetiapine Fumarate (SEROquel) 25 mg QID PO Last administered on 05/05/17 13: 00; Start 05/02/17 at 21:00; Stop 05/05/17 at 16:59; Status DC Benztropine Mesylate (Cogentin) 1 mg BID PO Last administered on 05/13/17 08: 45; Start 05/03/17 at 21:00 Quetiapine Fumarate (SEROquel) 37.5 mg DAILY PO Last administered on 05/13/17 08:45; Start 05/06/17 at 09:00 Quetiapine Fumarate (SEROquel) 25 mg NOON PO Last administered on 05/13/17 13: 06; Start 05/06/17 at 12:00 Quetiapine Fumarate (SEROquel) 37.5 mg DAILYWSUP PO Last administered on 18:23; Start 05/05/17 at 17:00 Quetiapine Fumarate (SEROquel) 25 mg QHS PO Last administered on 05/12/17 19: 52; Start 05/05/17 at 21:00 Active Scripts Active Reported Nasacort (Triamcinolone Acetonide) 10.8 Ml [place] 2 Sprays NS DAILY [place] (Ketotifen Fumarate) 10 Ml Drops 1 Drop EACHEYE BID Bisacodyl 10 Mg Supp.rect 10 Mg RC PRN DAILY PRN Benadryl (Diphenhydramine Hcl) 25 Mg Capsule 12.5 Mg PO PRN BID PRN Refresh Tears (Carboxymethylcellulose Sodium) 15 Ml Drops 1 Drop OD PRN QID PRN Lorazepam 0.5 Mg Tablet 0.5 Mg TP PRN Q6HRS PRN Seroquel (Quetiapine Fumarate) 25 Mg Tablet 25 Mg PO PRN DAILY PRN Aspirin 81 Mg Tab.chew 81 Mg PO DAILY Maalox Maximum Strength Susp (Mag Hydrox/Al Hydrox/Simeth) 355 Ml Oral.susp 15 Ml PO PRN AFTMEALHC PRN Milk Of Magnesia (Magnesium Hydroxide) 2,400 Mg/10 Ml Oral.susp 2,400 Mg PO PRN QHS PRN Tylenol (Acetaminophen) 325 Mg Tablet 650 Mg PO PRN Q6HRS PRN Cymbalta (Duloxetine Hcl) 60 Mg Capsule.dr 60 Mg PO DAILY DO NOT CRUSH OR CHEW Vitamin D3 (Cholecalciferol (Vitamin D3)) 5,000 Unit Tablet 4,000 Unit PO DAILY Abilify (Aripiprazole) 5 Mg Tablet 10 Mg PO DAILY Loratadine 10 Mg Tablet 10 Mg PO DAILY Ativan (Lorazepam) 1 Mg Tablet 0.5 Mg PO BID PRN Namenda (Memantine Hcl) 10 Mg Tablet 10 Mg PO BID Aricept (Donepezil Hcl) 10 Mg Tablet 10 Mg PO DAILY Depakote Sprinkle (Divalproex Sodium) 125 Mg Cap.sprink 500 Mg PO TID GIVE WITH FOOD. Diagnosis: Problems: (1) Anxiety disorder (2) Impulse control disorder (3) Dementia, vascular, with depression (4) Dementia, vascular, with delusions (5) Dementia in Alzheimer's disease with depression (6) Dementia in Alzheimer's disease with delusions ISACC WEAVER MD May 13, 2017 19:55
[2017-05-13] MEDS: ATORVASTATIN CALCIUM 20 MG TABLET PO SCH (20:37)
--- NOTE | 2017-05-14 03:06 | PN ---
DATE: 05/12/2017 This late entry 05/12/2017 covers elements not covered in my initial note. I met with the patient in the evening of 05/12/2017. The patient remains confused, otherwise compliant, ____ assistance with feeding at mealtimes. His visits him regularly for this and I met with her. REVIEW OF SYSTEMS: No CV, , pulmonary, eye, ENT system symptoms on review. Reliability poor. He is not very verbally forthcoming. MENTAL STATUS EXAM: Oriented to himself. Insight, judgment, recent and remote memory, attention, concentration, fund of knowledge poor, consistent with his diagnosis mentioned in my initial note. He did well previous evening and during the day on 05/12/2017. LABORATORY DATA: Reviewed. IMPRESSION: Unchanged from initial note. PLAN: Continue current psychotropics mentioned in my initial note. Valproic acid level therapeutic at 75, reviewed drug interactions, risk/benefit ratio favors no further change as of now. MAN Mary WEAVER MD DR: MARIAM/piter JOB#: [id number] / [id number]
[2017-05-14 06:07] VITALS: BP 103/54
[2017-05-14 07:14] LABS: BASO % 1 % (0-3); EOS # 0.1 x10^3/uL (0.0-0.7); EOS % 2 % (0-3); HEMATOCRIT 38.9 % (39.0-53.0); HEMOGLOBIN 13.3 g/dL (13.0-17.5); LYMPH # 1.6 x10^3/uL (1.0-4.8); LYMPH % 35 % (24-48); MEAN CORPUSCULAR HEMOGLOBIN 33 pg (25-35); MEAN CORPUSCULAR HGB CONC 34 g/dL (31-37); MEAN CORPUSCULAR VOLUME 96 fL (79-100); MONO # 0.5 x10^3/uL (0.0-1.1); MONO % 11 % (0-9); NEUT # 2.4 x10^3uL (1.8-7.7); NEUT % 52 % (31-73); PLATELET COUNT 199 x10^3/uL (140-400); RED BLOOD COUNT 4.06 x10^6/uL (4.30-5.70); RED CELL DISTRIBUTION WIDTH 13.7 % (11.5-14.5); WHITE BLOOD COUNT 4.6 x10^3/uL (4.0-11.0)
[2017-05-14 07:20] LABS: ALBUMIN 2.9 g/dL (3.4-5.0); CALCIUM 8.7 mg/dL (8.5-10.1); CREATININE 0.8 mg/dL (0.7-1.3); POTASSIUM 4.3 mmol/L (3.5-5.1); TOTAL BILIRUBIN 0.5 mg/dL (0.2-1.0); TOTAL PROTEIN 5.9 g/dL (6.4-8.2)
[2017-05-14] MEDS: FLUTICASONE 50MCG/NASAL SPRAY 16GM BOTTLE. NS SCH (09:00)
[2017-05-14] MEDS: KETOTIFEN FUMARATE 0.025% OPHT SOLUTION BOTTLE. OU SCH ×2 (09:00→20:13)
[2017-05-14] MEDS: DULoxetine HCL 60 MG CAPSULE.DR PO SCH (10:53)
[2017-05-14] MEDS: DONEPEZIL HCL 10 MG TABLET PO SCH (10:53)
[2017-05-14] MEDS: CARBIDOPA/LEVODOPA CR 25/100MG TABLET.SA PO SCH ×3 (10:53→20:12)
[2017-05-14] MEDS: MEMANTINE 10 MG TABLET. PO SCH ×2 (10:53→20:12)
[2017-05-14] MEDS: BENZTROPINE MESYLATE 1 MG TABLET PO SCH ×2 (10:53→20:11)
[2017-05-14] MEDS: ASPIRIN 81 MG TAB.CHEW PO SCH (10:53)
[2017-05-14] MEDS: QUEtiapine 25 MG TABLET. PO SCH ×4 (10:54→20:11)
[2017-05-14] MEDS: CHOLECALCIFEROL (VITAMIN D3) 1,000 UNIT TABLET PO SCH (10:54)
[2017-05-14] MEDS: DIVALPROEX 125 MG CAP.SPRINK PO SCH ×3 (10:54→20:12)
[2017-05-14 16:17] VITALS: BP 95/69
--- NOTE | 2017-05-14 20:03 | PDOC ---
Exam Mj Demential Exam: Mj Note: Please also refer to the separate dictated note~for this date of service dictated separately.~Patient seen individually. Discussed the patient with Nursing staff reviewed the chart.~Reviewed interim history and current functioning. Reviewed vital signs,~Labs/ Radiology~and current medications noted below. Continue current treatment with the changes noted in the dictated addendum note Assessment: Vital Signs: Vital Signs Date Time Temp Pulse Resp B/P (MAP) Pulse Ox O2 Delivery O2 Flow Rate FiO2 05/14/17 16:17 97.2 86 18 95/69 (78) 97 05/10/17 15:43 Room Air I&O Intake and Output 05/15/17 07:00 Intake Total 480 ml Balance 480 ml Intake Oral 480 ml Labs: Laboratory Tests Test 05/14/17 06:40 White Blood Count 4.6 x10^3/uL (4.0-11.0) Red Blood Count 4.06 x10^6/uL (4.30-5.70) L Hemoglobin 13.3 g/dL (13.0-17.5) Hematocrit 38.9 % (39.0-53.0) L Mean Corpuscular Volume 96 fL (79-100) Mean Corpuscular Hemoglobin 33 pg (25-35) Mean Corpuscular Hemoglobin Concent 34 g/dL (31-37) Red Cell Distribution Width 13.7 % (11.5-14.5) Platelet Count 199 x10^3/uL (140-400) Neutrophils (%) (Auto) 52 % (31-73) Lymphocytes (%) (Auto) 35 % (24-48) Monocytes (%) (Auto) 11 % (0-9) H Eosinophils (%) (Auto) 2 % (0-3) Basophils (%) (Auto) 1 % (0-3) Neutrophils # (Auto) 2.4 x10^3uL (1.8-7.7) Lymphocytes # (Auto) 1.6 x10^3/uL (1.0-4.8) Monocytes # (Auto) 0.5 x10^3/uL (0.0-1.1) Eosinophils # (Auto) 0.1 x10^3/uL (0.0-0.7) Basophils # (Auto) 0.0 x10^3/uL (0.0-0.2) Sodium Level 139 mmol/L (136-145) Potassium Level 4.3 mmol/L (3.5-5.1) Chloride Level 104 mmol/L (98-107) Carbon Dioxide Level 35 mmol/L (21-32) H Anion Gap 0 (6-14) L Blood Urea Nitrogen 10 mg/dL (8-26) Creatinine 0.8 mg/dL (0.7-1.3) Estimated GFR (Cockcroft-Gault) 97.0 BUN/Creatinine Ratio 13 (6-20) Glucose Level 82 mg/dL (70-99) Calcium Level 8.7 mg/dL (8.5-10.1) Magnesium Level 2.0 mg/dL (1.8-2.4) Total Bilirubin 0.5 mg/dL (0.2-1.0) Aspartate Amino Transferase (AST) 11 U/L (15-37) L Alanine Aminotransferase (ALT) 7 U/L (16-63) L Alkaline Phosphatase 59 U/L (46-116) Total Protein 5.9 g/dL (6.4-8.2) L Albumin 2.9 g/dL (3.4-5.0) L Albumin/Globulin Ratio 1.0 (1.0-1.7) Current Medications: Meds: Current Medications Acetaminophen (Tylenol) 650 mg PRN Q6HRS PRN PO PAIN / TEMP Last administered on 04/30/17 18:52; Start 04/23/17 at 17:15 Multi-Ingredient Ointment (Analgesic Scott) 1 ana maría PRN QID PRN TP MUSCLE PAIN; Start 04/23/17 at 17:15 Al Hydroxide/Mg Hydroxide (Mylanta Plus Xs) 15 ml PRN AFTMEALHC PRN PO DYSPEPSIA; Start 04/23/17 at 17:15 Magnesium Hydroxide (Milk Of Magnesia) 2,400 mg PRN QHS PRN PO CONSTIPATION Last administered on 04/29/17 14:31; Start 04/23/17 at 17:15 Aripiprazole (Abilify) 10 mg DAILY PO Last administered on 04/24/17 08:44; Start 04/24/17 at 09:00; Stop 04/24/17 at 19:02; Status DC Divalproex Sodium (Depakote Sprinkles) 500 mg TID PO Last administered on 13:19; Start 04/23/17 at 21:00 Donepezil HCl (Aricept) 10 mg DAILY PO Last administered on 05/14/17 10:53; Start 04/24/17 at 09:00 Duloxetine HCl (Cymbalta) 60 mg DAILY PO Last administered on 05/14/17 10:53; Start 04/24/17 at 09:00 Lorazepam (Ativan) 0.5 mg PRN Q6HRS PRN TP ANXIETY / AGITATION Last administered on 05/02/17 22:21; Start 04/25/17 at 12:00 Lorazepam (Ativan) 0.5 mg PRN BID PRN PO ANXIETY / AGITATION; Start 04/23/17 at 18:00 Memantine (Namenda) 10 mg BID PO Last administered on 05/14/17 10:53; Start at 21:00 Quetiapine Fumarate (SEROquel) 25 mg PRN DAILY PRN PO PSYCHOSIS; Start 04/23/17 at 18:00 Acetaminophen (Tylenol) 650 mg PRN Q6HRS PRN PO PAIN / TEMP; Start 04/23/17 at 20:30; Status UNV Aspirin (Children'S Aspirin) 81 mg DAILY PO Last administered on 05/14/17 10: 53; Start 04/24/17 at 09:00 Bisacodyl (Dulcolax Supp) 10 mg PRN DAILY PRN RC CONSTIPATION; Start 04/23/17 at 20:30 Ketotifen Fumarate (Zaditor) 1 drop BID OU Last administered on 05/13/17 20:38 ; Start 04/23/17 at 21:00 Al Hydroxide/Mg Hydroxide (Mylanta Plus Xs) 15 ml PRN AFTMEALHC PRN PO DYSPEPSIA; Start 04/23/17 at 20:30; Status UNV Artificial Tears (Refresh Classic) 1 drop PRN QID PRN OD DRY EYE; Start at 20:45 Vitamin D (Vitamin D3) 4,000 unit DAILY PO Last administered on 05/14/17 10:54 ; Start 04/24/17 at 09:00 Non-Formulary Medication 2,400 mg PRN QHS PRN PO CONSTIPATION; Start 04/23/17 at 20:30; Status UNV Fluticasone Propionate (Flonase) 2 spray DAILY NS Last administered on 08:23; Start 04/24/17 at 09:00 Olanzapine (ZyPREXA ZYDIS) 2.5 mg PRN Q2HR PRN PO PSYCHOSIS Last administered on 05/07/17 05:29; Start 04/24/17 at 08:00 Carbidopa/Levodopa (Sinemet Cr) 1 tab.sa TID PO Last administered on 05/14/17 13:19; Start 04/24/17 at 21:00 Atorvastatin Calcium (Lipitor) 20 mg QHS PO Last administered on 05/13/17 20: 37; Start 04/25/17 at 21:00 Quetiapine Fumarate (SEROquel) 12.5 mg BID92 PO Last administered on 04/27/17 15:12; Start 04/26/17 at 09:00; Stop 04/27/17 at 19:24; Status DC Benztropine Mesylate (Cogentin) 0.5 mg BID PO Last administered on 05/03/17 11 :02; Start 04/26/17 at 21:00; Stop 05/03/17 at 14:31; Status DC Quetiapine Fumarate (SEROquel) 12.5 mg TID@0900,1400,1800 PO Last administered on 04/29/17 18:08; Start 04/28/17 at 09:00; Stop 04/29/17 at 18:15; Status DC Quetiapine Fumarate (SEROquel) 12.5 mg QID PO Last administered on 05/01/17 16 :42; Start 04/29/17 at 21:00; Stop 05/01/17 at 18:33; Status DC Quetiapine Fumarate (SEROquel) 12.5 mg BID@0900,2100 PO Last administered on 11:40; Start 05/01/17 at 21:00; Stop 05/02/17 at 18:32; Status DC Quetiapine Fumarate (SEROquel) 25 mg BID@1300,1700 PO Last administered on 05/02 16:58; Start 05/02/17 at 13:00; Stop 05/02/17 at 18:32; Status DC Quetiapine Fumarate (SEROquel) 25 mg QID PO Last administered on 05/05/17 13: 00; Start 05/02/17 at 21:00; Stop 05/05/17 at 16:59; Status DC Benztropine Mesylate (Cogentin) 1 mg BID PO Last administered on 05/14/17 10: 53; Start 05/03/17 at 21:00 Quetiapine Fumarate (SEROquel) 37.5 mg DAILY PO Last administered on 05/14/17 10:54; Start 05/06/17 at 09:00 Quetiapine Fumarate (SEROquel) 25 mg NOON PO Last administered on 05/14/17 13: 19; Start 05/06/17 at 12:00 Quetiapine Fumarate (SEROquel) 37.5 mg DAILYWSUP PO Last administered on 17:52; Start 05/05/17 at 17:00 Quetiapine Fumarate (SEROquel) 25 mg QHS PO Last administered on 05/13/17 20: 37; Start 05/05/17 at 21:00 Active Scripts Active Reported Nasacort (Triamcinolone Acetonide) 10.8 Ml [place] 2 Sprays NS DAILY Alaway (Ketotifen Fumarate) 10 Ml Drops 1 Drop EACHEYE BID Bisacodyl 10 Mg Supp.rect 10 Mg RC PRN DAILY PRN Benadryl (Diphenhydramine Hcl) 25 Mg Capsule 12.5 Mg PO PRN BID PRN Refresh Tears (Carboxymethylcellulose Sodium) 15 Ml Drops 1 Drop OD PRN QID PRN Lorazepam 0.5 Mg Tablet 0.5 Mg TP PRN Q6HRS PRN Seroquel (Quetiapine Fumarate) 25 Mg Tablet 25 Mg PO PRN DAILY PRN Aspirin 81 Mg Tab.chew 81 Mg PO DAILY Maalox Maximum Strength Susp (Mag Hydrox/Al Hydrox/Simeth) 355 Ml Oral.susp 15 Ml PO PRN AFTMEALHC PRN Milk Of Magnesia (Magnesium Hydroxide) 2,400 Mg/10 Ml Oral.susp 2,400 Mg PO PRN QHS PRN Tylenol (Acetaminophen) 325 Mg Tablet 650 Mg PO PRN Q6HRS PRN Cymbalta (Duloxetine Hcl) 60 Mg Capsule.dr 60 Mg PO DAILY DO NOT CRUSH OR CHEW Vitamin D3 (Cholecalciferol (Vitamin D3)) 5,000 Unit Tablet 4,000 Unit PO DAILY Abilify (Aripiprazole) 5 Mg Tablet 10 Mg PO DAILY Loratadine 10 Mg Tablet 10 Mg PO DAILY Ativan (Lorazepam) 1 Mg Tablet 0.5 Mg PO BID PRN Namenda (Memantine Hcl) 10 Mg Tablet 10 Mg PO BID Aricept (Donepezil Hcl) 10 Mg Tablet 10 Mg PO DAILY Depakote Sprinkle (Divalproex Sodium) 125 Mg Cap.sprink 500 Mg PO TID GIVE WITH FOOD. Diagnosis: Problems: (1) Anxiety disorder (2) Impulse control disorder (3) Dementia, vascular, with depression (4) Dementia, vascular, with delusions (5) Dementia in Alzheimer's disease with depression (6) Dementia in Alzheimer's disease with delusions ISACC WEAVER MD May 14, 2017 20:03
[2017-05-14] MEDS: ATORVASTATIN CALCIUM 20 MG TABLET PO SCH (20:11)
--- NOTE | 2017-05-15 00:51 | PN ---
DATE: 05/13/2017 PSYCHIATRIC PROGRESS NOTE This is a late entry for 05/13/2017, covers elements not covered in my initial note of 05/13/2017. SUBJECTIVE: I met with the patient the evening of 05/13/2017 and also met with the patient's at some length. Discussed his diagnosis, current medications, discharge, and aftercare plans. Overall, the patient remains confused, not aggressive, has not had to be isolated in the [facility], as he was earlier in his hospitalization. REVIEW OF SYSTEMS: No CV, , pulmonary, eye, ENT system symptoms on review. Reliability poor. MENTAL STATUS EXAM: Oriented to himself. Insight, judgment, recent and remote memory, attention, concentration, fund of knowledge poor, consistent with his diagnosis mentioned in my initial note. PLAN: Continue current psychotropics. Reviewed drug interactions. Risk/benefit ratio favors no further changes as of now. ISACC WEAVER MD DR: MARIAM/piter JOB#: [id number] / [id number]
[2017-05-15] MEDS ORDERED: ATOR20TA58 PO (01:24)
[2017-05-15] MEDS ORDERED: BENZ1TAB5 PO (01:25)
[2017-05-15] MEDS ORDERED: CARB1TAB2 PO (01:27)
[2017-05-15] MEDS ORDERED: FLUT16SP21 NS (01:32)
[2017-05-15] MEDS ORDERED: METH29OI TP (01:37)
[2017-05-15] MEDS ORDERED: OLAN5TAB9 PO (01:38)
[2017-05-15] MEDS ORDERED: POLY1DRO3 OU (01:39)
[2017-05-15] MEDS ORDERED: QUET50TA5 PO ×2 (01:40→01:43)
[2017-05-15] MEDS ORDERED: QUET25TA5 PO ×2 (01:41→01:44)
[2017-05-15 06:15] VITALS: BP 105/56
[2017-05-15] MEDS: KETOTIFEN FUMARATE 0.025% OPHT SOLUTION BOTTLE. OU SCH (09:00)
[2017-05-15] MEDS: ASPIRIN 81 MG TAB.CHEW PO SCH (10:17)
[2017-05-15] MEDS: BENZTROPINE MESYLATE 1 MG TABLET PO SCH (10:17)
[2017-05-15] MEDS: DIVALPROEX 125 MG CAP.SPRINK PO SCH (10:17)
[2017-05-15] MEDS: FLUTICASONE 50MCG/NASAL SPRAY 16GM BOTTLE. NS SCH (10:17)
[2017-05-15] MEDS: DONEPEZIL HCL 10 MG TABLET PO SCH (10:18)
[2017-05-15] MEDS: CARBIDOPA/LEVODOPA CR 25/100MG TABLET.SA PO SCH (10:18)
[2017-05-15] MEDS: QUEtiapine 25 MG TABLET. PO SCH (10:18)
[2017-05-15] MEDS: DULoxetine HCL 60 MG CAPSULE.DR PO SCH (10:18)
[2017-05-15] MEDS: MEMANTINE 10 MG TABLET. PO SCH (10:19)
[2017-05-15] MEDS: CHOLECALCIFEROL (VITAMIN D3) 1,000 UNIT TABLET PO SCH (10:19)
--- NOTE | 2017-05-15 18:55 | PDOC ---
Exam Mj Demential Exam: Mj Note: Please also refer to the separate dictated note~for this date of service dictated separately.~Patient seen individually. Discussed the patient with Nursing staff reviewed the chart.~Reviewed interim history and current functioning. Reviewed vital signs,~Labs/ Radiology~and current medications noted below. Continue current treatment with the changes noted in the dictated addendum note Assessment: Vital Signs: Vital Signs Date Time Temp Pulse Resp B/P (MAP) Pulse Ox O2 Delivery O2 Flow Rate FiO2 05/15/17 06:15 97.3 47 20 105/56 (72) 100 05/10/17 15:43 Room Air I&O Intake and Output 05/16/17 07:00 Intake Total 600 ml Balance 600 ml Intake Oral 600 ml Current Medications: Meds: Current Medications Acetaminophen (Tylenol) 650 mg PRN Q6HRS PRN PO PAIN / TEMP Last administered on 04/30/17 18:52; Start 04/23/17 at 17:15; Stop 05/15/17 at 12:42; Status DC Multi-Ingredient Ointment (Analgesic Reyno) 1 angelica PRN QID PRN TP MUSCLE PAIN; Start 04/23/17 at 17:15; Stop 05/15/17 at 12:42; Status DC Al Hydroxide/Mg Hydroxide (Mylanta Plus Xs) 15 ml PRN AFTMEALHC PRN PO DYSPEPSIA; Start 04/23/17 at 17:15; Stop 05/15/17 at 12:42; Status DC Magnesium Hydroxide (Milk Of Magnesia) 2,400 mg PRN QHS PRN PO CONSTIPATION Last administered on 04/29/17 14:31; Start 04/23/17 at 17:15; Stop 05/15/17 at 12:42; Status DC Aripiprazole (Abilify) 10 mg DAILY PO Last administered on 04/24/17 08:44; Start 04/24/17 at 09:00; Stop 04/24/17 at 19:02; Status DC Divalproex Sodium (Depakote Sprinkles) 500 mg TID PO Last administered on 10:17; Start 04/23/17 at 21:00; Stop 05/15/17 at 12:42; Status DC Donepezil HCl (Aricept) 10 mg DAILY PO Last administered on 05/15/17 10:18; Start 04/24/17 at 09:00; Stop 05/15/17 at 12:42; Status DC Duloxetine HCl (Cymbalta) 60 mg DAILY PO Last administered on 05/15/17 10:18; Start 04/24/17 at 09:00; Stop 05/15/17 at 12:42; Status DC Lorazepam (Ativan) 0.5 mg PRN Q6HRS PRN TP ANXIETY / AGITATION Last administered on 05/02/17 22:21; Start 04/25/17 at 12:00; Stop 05/15/17 at 12:42 ; Status DC Lorazepam (Ativan) 0.5 mg PRN BID PRN PO ANXIETY / AGITATION; Start 04/23/17 at 18:00; Stop 05/15/17 at 12:42; Status DC Memantine (Namenda) 10 mg BID PO Last administered on 05/15/17 10:19; Start at 21:00; Stop 05/15/17 at 12:42; Status DC Quetiapine Fumarate (SEROquel) 25 mg PRN DAILY PRN PO PSYCHOSIS; Start 04/23/17 at 18:00; Stop 05/15/17 at 12:42; Status DC Acetaminophen (Tylenol) 650 mg PRN Q6HRS PRN PO PAIN / TEMP; Start 04/23/17 at 20:30; Status UNV Aspirin (Children'S Aspirin) 81 mg DAILY PO Last administered on 05/15/17 10: 17; Start 04/24/17 at 09:00; Stop 05/15/17 at 12:42; Status DC Bisacodyl (Dulcolax Supp) 10 mg PRN DAILY PRN RC CONSTIPATION; Start 04/23/17 at 20:30; Stop 05/15/17 at 12:42; Status DC Ketotifen Fumarate (Zaditor) 1 drop BID OU Last administered on 05/14/17 20:13 ; Start 04/23/17 at 21:00; Stop 05/15/17 at 12:42; Status DC Al Hydroxide/Mg Hydroxide (Mylanta Plus Xs) 15 ml PRN AFTMEALHC PRN PO DYSPEPSIA; Start 04/23/17 at 20:30; Status UNV Artificial Tears (Refresh Classic) 1 drop PRN QID PRN OD DRY EYE; Start at 20:45; Stop 05/15/17 at 12:42; Status DC Vitamin D (Vitamin D3) 4,000 unit DAILY PO Last administered on 05/15/17 10:19 ; Start 04/24/17 at 09:00; Stop 05/15/17 at 12:42; Status DC Non-Formulary Medication 2,400 mg PRN QHS PRN PO CONSTIPATION; Start 04/23/17 at 20:30; Status UNV Fluticasone Propionate (Flonase) 2 spray DAILY NS Last administered on 10:17; Start 04/24/17 at 09:00; Stop 05/15/17 at 12:42; Status DC Olanzapine (ZyPREXA ZYDIS) 2.5 mg PRN Q2HR PRN PO PSYCHOSIS Last administered on 05/07/17 05:29; Start 04/24/17 at 08:00; Stop 05/15/17 at 12:42; Status DC Carbidopa/Levodopa (Sinemet Cr) 1 tab.sa TID PO Last administered on 05/15/17 10:18; Start 04/24/17 at 21:00; Stop 05/15/17 at 12:42; Status DC Atorvastatin Calcium (Lipitor) 20 mg QHS PO Last administered on 05/14/17 20: 11; Start 04/25/17 at 21:00; Stop 05/15/17 at 12:42; Status DC Quetiapine Fumarate (SEROquel) 12.5 mg BID92 PO Last administered on 04/27/17 15:12; Start 04/26/17 at 09:00; Stop 04/27/17 at 19:24; Status DC Benztropine Mesylate (Cogentin) 0.5 mg BID PO Last administered on 05/03/17 11 :02; Start 04/26/17 at 21:00; Stop 05/03/17 at 14:31; Status DC Quetiapine Fumarate (SEROquel) 12.5 mg TID@0900,1400,1800 PO Last administered on 04/29/17 18:08; Start 04/28/17 at 09:00; Stop 04/29/17 at 18:15; Status DC Quetiapine Fumarate (SEROquel) 12.5 mg QID PO Last administered on 05/01/17 16 :42; Start 04/29/17 at 21:00; Stop 05/01/17 at 18:33; Status DC Quetiapine Fumarate (SEROquel) 12.5 mg BID@0900,2100 PO Last administered on 11:40; Start 05/01/17 at 21:00; Stop 05/02/17 at 18:32; Status DC Quetiapine Fumarate (SEROquel) 25 mg BID@1300,1700 PO Last administered on 05/02 16:58; Start 05/02/17 at 13:00; Stop 05/02/17 at 18:32; Status DC Quetiapine Fumarate (SEROquel) 25 mg QID PO Last administered on 05/05/17 13: 00; Start 05/02/17 at 21:00; Stop 05/05/17 at 16:59; Status DC Benztropine Mesylate (Cogentin) 1 mg BID PO Last administered on 05/15/17 10: 17; Start 05/03/17 at 21:00; Stop 05/15/17 at 12:42; Status DC Quetiapine Fumarate (SEROquel) 37.5 mg DAILY PO Last administered on 05/15/17 10:18; Start 05/06/17 at 09:00; Stop 05/15/17 at 12:42; Status DC Quetiapine Fumarate (SEROquel) 25 mg NOON PO Last administered on 05/14/17 13: 19; Start 05/06/17 at 12:00; Stop 05/15/17 at 12:42; Status DC Quetiapine Fumarate (SEROquel) 37.5 mg DAILYWSUP PO Last administered on 17:52; Start 05/05/17 at 17:00; Stop 05/15/17 at 12:42; Status DC Quetiapine Fumarate (SEROquel) 25 mg QHS PO Last administered on 05/14/17 20: 11; Start 05/05/17 at 21:00; Stop 05/15/17 at 12:42; Status DC Active Scripts Active Reported Seroquel (Quetiapine Fumarate) 25 Mg Tablet 25 Mg PO QHS Seroquel (Quetiapine Fumarate) 50 Mg Tablet 37.5 Mg PO DAILY Seroquel (Quetiapine Fumarate) 25 Mg Tablet 25 Mg PO NOON Seroquel (Quetiapine Fumarate) 50 Mg Tablet 37.5 Mg PO DAILYWSUP Refresh Classic Eye Drops (Polyvinyl Alcohol/Povidone/Pf) 1 Each Droperette 1 Drp OU PRN QID Olanzapine 5 Mg Tablet 2.5 Mg PO PRN Q2HR PRN Analgesic Reyno (Methyl Salicylate/Menthol) 28 Gm Oint...g. 1 Angelica TP PRN QID PRN Fluticasone Propionate Nasal Fischer (Fluticasone Propionate) 16 Gm Fischer.susp 2 Fischer NS DAILY Sinemet 25-100 Mg Tablet (Carbidopa/Levodopa) 1 Each Tablet 1 Each PO TID Benztropine Mesylate 1 Mg Tablet 1 Mg PO BID Atorvastatin Calcium 20 Mg Tablet 20 Mg PO QHS Nasacort (Triamcinolone Acetonide) 10.8 Ml [place] 2 Sprays NS DAILY Alaway (Ketotifen Fumarate) 10 Ml Drops 1 Drop EACHEYE BID Bisacodyl 10 Mg Supp.rect 10 Mg RC PRN DAILY PRN Lorazepam 0.5 Mg Tablet 0.5 Mg TP PRN Q6HRS PRN Seroquel (Quetiapine Fumarate) 25 Mg Tablet 25 Mg PO PRN DAILY PRN Aspirin 81 Mg Tab.chew 81 Mg PO DAILY Maalox Maximum Strength Susp (Mag Hydrox/Al Hydrox/Simeth) 355 Ml Oral.susp 15 Ml PO PRN AFTMEALHC PRN Milk Of Magnesia (Magnesium Hydroxide) 2,400 Mg/10 Ml Oral.susp 2,400 Mg PO PRN QHS PRN Tylenol (Acetaminophen) 325 Mg Tablet 650 Mg PO PRN Q6HRS PRN Cymbalta (Duloxetine Hcl) 60 Mg Capsule.dr 60 Mg PO DAILY DO NOT CRUSH OR CHEW Vitamin D3 (Cholecalciferol (Vitamin D3)) 5,000 Unit Tablet 4,000 Unit PO DAILY Ativan (Lorazepam) 1 Mg Tablet 0.5 Mg PO BID PRN Namenda (Memantine Hcl) 10 Mg Tablet 10 Mg PO BID Aricept (Donepezil Hcl) 10 Mg Tablet 10 Mg PO DAILY Depakote Sprinkle (Divalproex Sodium) 125 Mg Cap.sprink 500 Mg PO TID GIVE WITH FOOD. Diagnosis: Problems: (1) Dementia in Alzheimer's disease with delusions (2) Dementia in Alzheimer's disease with depression (3) Dementia, vascular, with delusions (4) Dementia, vascular, with depression (5) Impulse control disorder (6) Anxiety disorder ISACC WEAVER MD May 15, 2017 18:55
--- NOTE | 2017-05-16 02:40 | PN ---
DATE: 05/14/2017 This late entry 05/14/2017 covers elements not covered in my initial note. SUBJECTIVE: The patient was seen individually evening of 05/14/2017. Per nursing report, the patient remains confused, not aggressive, has not had to be in the separate hallway. REVIEW OF SYSTEMS: No CV, , pulmonary, eye, ENT system symptoms on review. Reliability poor. MENTAL STATUS EXAM: Oriented to himself. Insight, judgment, recent and remote memory, attention, concentration, fund of knowledge poor, consistent with his diagnosis mentioned in my initial note. PLAN: Continue current psychotropics, possible discharge 05/15/2017. MAN Mary WEAVER MD DR: MARIAM/piter JOB#: [id number] / [id number]
--- NOTE | 2017-05-19 06:38 | DS ---
DATE OF DISCHARGE: 05/15/2017 DISCHARGE SUMMARY/PSYCHIATRIC PROGRESS NOTE This is a late entry for 05/15/2017, covers elements not covered in my initial note of 05/15/2017. REASON FOR ADMISSION: Please refer to the admission history for details. Briefly, the patient is a 67-year-old male referred back to us from [facility] by his primary care physician/psychiatrist on account of increased aggression, charging people, putting his hands around the throat of staff members. He has been increasingly delusional within the context of his diagnosis of major neurocognitive disorder, Alzheimer, possibly secondary to Parkinson/Lewy body. Behaviors were deemed dangerous, had failed outpatient psychiatric interventions resulting in this referral. SIGNIFICANT FINDINGS AND CLINICAL COURSE: Following admission, the patient was seen daily individually by myself, followed medically per Dr. Stephenson/Dr. Hayes. He remained extremely agitated, had to be placed in a separate hallway away from stimuli to help control and manage his behaviors which were erratic, dangerous, and disruptive. Neurology consult was sought with Dr. Sharma and he was restarted on Sinemet for his Parkinson's, which seemed to help significantly with his facial expression, mobility, and interactiveness. Seroquel was adjusted for mood stabilization. Gradually mood appeared to improve. He was less aggressive, did not have to go back to the isolated hallway, and he seemed to respond to a combination of Aricept 10 mg a day, Cymbalta 60 mg a day, Depakote 500 mg 3 times a day, level therapeutic at 75, Namenda 10 mg b.i.d., Ativan 0.5 mg b.i.d., Seroquel 25 mg at noon and 2100 hours, and 37.5 mg at 9 a.m. and 5 p.m. Ativan topical p.r.n., Cogentin 1 mg b.i.d. plus ____. CONDITION AT DISCHARGE: Improved. REVIEW OF SYSTEMS: Prior to discharge, no CV, , pulmonary, eye, ENT system symptoms on review. Reliability poor. MENTAL STATUS EXAM: Oriented to himself. Insight, judgment, recent and remote memory, attention, concentration, fund of knowledge poor, consistent with his diagnosis. FINAL DIAGNOSES: Major neurocognitive disorder, multifactorial, probably secondary to Parkinson's, Lewy body, Alzheimer, vascular with depression, delusion, behavioral disturbance; anxiety disorder, unspecified; impulse control disorder, unspecified. Rest diagnoses unchanged from admission DISCHARGE MEDICATIONS: Please refer to the MRAD. DISCHARGE INSTRUCTIONS: Outpatient psychiatric and medical followup at the correction. MAN Mary WEAVER MD DR: Tina JOB#: [id number] / [id number]
== END 2017-05-15 10:50 | DRG 884 ==
LOC: GEROPSY 16:37
PROVIDERS: ADMIT Psychiatry & Neurology Psychiatry; ATTEND Psychiatry & Neurology Psychiatry
DX: F01.51 Vascular dementia, unspecified severity, with behavioral disturbance (principal); G30.9 Alzheimer's disease, unspecified; G20 Parkinson's disease; F02.81 Dementia in other diseases classified elsewhere, unspecified severity, with behavioral disturbance; E78.5 Hyperlipidemia, unspecified; F22 Delusional disorders; E78.00 Pure hypercholesterolemia, unspecified; F32.9 Major depressive disorder, single episode, unspecified; F41.9 Anxiety disorder, unspecified; F63.9 Impulse disorder, unspecified; R32 Unspecified urinary incontinence; Z66 Do not resuscitate; R63.4 Abnormal weight loss; Z79.899 Other long term (current) drug therapy; Z91.81 History of falling; Z87.01 Personal history of pneumonia (recurrent)
CPT/HCPCS: 36415; 80048; 80053; 80061; 80164; 82306; 82607; 83540; 83550; 83735; 84436; 84443; 84480; 85025; 85027; 97116; 97530; 97535

== ENCOUNTER 2017-08-02 22:15 | Inpatient (IN) | payer MEDICARE ==
[~2017-08-02] VITALS: Ht 182.9 cm; Wt 65.1 kg
[~2017-08-02 22:15] MED LIST changes: +ASPI-630 PO; +ATOR20TA58 PO; +BENZ1TAB5 PO; +BISA10SU2 RC; +CARB15DR98 OD; +CARB1TAB2 PO; +DIPH25CA58 PO; +FLUT16SP21 NS; +KETO10DR6 EACHEYE; +LORA0.5T TP; +METH29OI TP; +OLAN5TAB9 PO; +POLY1DRO3 OU; +QUET25TA5 PO; +TRIA10.8 NS
[2017-08-02] MEDS ORDERED: LORA10TA3 PO (23:35)
[2017-08-02] MEDS ORDERED: VALP250S PO (23:35)
[2017-08-02] MEDS ORDERED: CHOL100013 PO (23:35)
[2017-08-02] MEDS ORDERED: MAGN400O7 PO (23:35)
[2017-08-02] MEDS ORDERED: ATIVAN TOP (23:35)
[2017-08-02] MEDS ORDERED: LORazepam 0.5 MG TABLET PO PRN (23:45)
[2017-08-02] MEDS ORDERED: QUEtiapine 25 MG TABLET. PO PRN (23:45)
[2017-08-03 00:05] VITALS: BP 114/60
[2017-08-03 06:08] VITALS: BP 113/55
[2017-08-03] MEDS ORDERED: POLYVINYL ALCOHOL/POVIDONE/PF OPHTH SOLUTION DROPERETTE. OU PRN ×2 (07:00→07:27)
[2017-08-03] MEDS ORDERED: ACETAMINOPHEN 325 MG TABLET PO PRN (07:00)
[2017-08-03] MEDS ORDERED: BISACODYL 10 MG SUPP.RECT RC PRN (07:00)
[2017-08-03] MEDS ORDERED: METHYL SALICYLATE/MENTHOL TOPICAL OINTMENT 29GM TUBE. TP PRN (07:00)
[2017-08-03] MEDS ORDERED: MAGNESIUM HYDROXIDE 2,400 MG/30 ML ORAL.SUSP. PO PRN (07:00)
[2017-08-03] MEDS ORDERED: MAG HYDROX/AL HYDROX/SIMETH 30 ML ORAL.SUSP PO PRN (07:00)
[2017-08-03 07:51] LABS: BASO % 0 % (0-3); EOS % 1 % (0-3); HEMATOCRIT 38.4 % (39.0-53.0); HEMOGLOBIN 13.6 g/dL (13.0-17.5); LYMPH # 0.7 x10^3/uL (1.0-4.8); LYMPH % 12 % (24-48); MEAN CORPUSCULAR HEMOGLOBIN 34 pg (25-35); MEAN CORPUSCULAR HGB CONC 35 g/dL (31-37); MEAN CORPUSCULAR VOLUME 95 fL (79-100); MONO # 0.6 x10^3/uL (0.0-1.1); MONO % 10 % (0-9); NEUT # 4.6 x10^3uL (1.8-7.7); NEUT % 77 % (31-73); PLATELET COUNT 129 x10^3/uL (140-400); RED BLOOD COUNT 4.06 x10^6/uL (4.30-5.70)
[2017-08-03 08:13] LABS: ALBUMIN 2.9 g/dL (3.4-5.0); CALCIUM 8.6 mg/dL (8.5-10.1); CREATININE 0.7 mg/dL (0.7-1.3); GFR 113.2; POTASSIUM 3.8 mmol/L (3.5-5.1); TOTAL BILIRUBIN 0.4 mg/dL (0.2-1.0); TOTAL PROTEIN 5.9 g/dL (6.4-8.2)
[2017-08-03 08:19] LABS: VAL ACID 68 mcg/mL (50-100)
[2017-08-03] MEDS ORDERED: ASPIRIN 81 MG TAB.CHEW PO SCH (09:00)
[2017-08-03] MEDS ORDERED: DONEPEZIL HCL 10 MG TABLET PO SCH (09:00)
[2017-08-03] MEDS ORDERED: KETOTIFEN FUMARATE 0.025% OPHT SOLUTION BOTTLE. OU SCH (09:00)
[2017-08-03] MEDS ORDERED: BENZTROPINE MESYLATE 1 MG TABLET PO SCH (09:00)
[2017-08-03] MEDS ORDERED: CHOLECALCIFEROL (VITAMIN D3) 1,000 UNIT TABLET PO SCH (09:00)
[2017-08-03] MEDS ORDERED: MEMANTINE 10 MG TABLET. PO SCH (09:00)
[2017-08-03] MEDS ORDERED: DULoxetine HCL 60 MG CAPSULE.DR PO SCH (09:00)
[2017-08-03] MEDS ORDERED: FLUTICASONE 50MCG/NASAL SPRAY 16GM BOTTLE. NS SCH (09:00)
[2017-08-03] MEDS: CARBIDOPA/LEVODOPA 25/100MG TABLET PO SCH ×2 (09:07→16:13)
[2017-08-03] MEDS: VALPROATE ACID 250 MG/5 ML ORAL SOLUTION PO SCH ×2 (09:08→16:14)
[2017-08-03 10:06] LABS: THYROID STIM HORMONE (TSH) 3.651 uIU/mL (0.358-3.740)
[2017-08-03 13:07] LABS: T3 TOTAL 77 ng/dL (71-180); THYROXINE 4.3 ug/dL (4.5-12.0)
[2017-08-03 16:05] VITALS: BP 109/55
--- NOTE | 2017-08-03 16:16 | HP ---
ADMIT DATE: 08/02/2017 REASON FOR ADMISSION TO SENIOR BEHAVIORAL UNIT: This is a 67-year-old gentleman who has had 2 previous stays at the [facility]. He came from [facility] evidently and he resides at [facility] in [place]. He has been having increased shaking, extrapyramidal symptoms, increased involuntary movement with his eyes rolling to the back of his head. His Seroquel decreased the bizarre behaviors of staring into space, but he has been having increased agitation again and he has been unable to ambulate. Onset of symptoms 07/31/2017. Outpatient treatment attempted, Seroquel decreased from 125 to 25. PAST MEDICAL HISTORY: Parkinson's, dementia, depression falling, allergies, vitamin deficiency, mood disorder, constipation and anxiety. ALLERGIES: None. MEDICATIONS: Reviewed. SOCIAL HISTORY: Lived at home with his up to 08/2016, now resides at [facility]. FUNCTIONALITY: Unable to walk. REVIEW OF SYSTEMS: The patient unable to elucidate. In the previous [facility] and P when he was able to talk, he denied smoking. He could not say what his occupation was. He could not identify his children at that time. REVIEW OF SYSTEMS: The patient is nonverbal and unable to communicate. OBJECTIVE: VITAL SIGNS: Blood pressure 114/60, pulse 64, respirations 18, temperature 97.7, pulse ox is 96% on room air. GENERAL: The patient is lying in a Broda chair. He is awake, but his eyes are closed and he is unable to answer any questions. He can hear, would not open his eyes. HEENT: His nose was patent. Throat, could not examine. NECK: Supple. LUNGS: Clear. CARDIOVASCULAR: Regular rhythm and rate with a 2/6 systolic murmur. ABDOMEN: Soft, nontender. EXTREMITIES: Without edema. NEUROLOGIC: He has a severe global tremor and ticking. Cranial nerves, unable to assess. Mobility, unable to assess. LABORATORY DATA: Hemoglobin 13.6; hematocrit 38.4; platelet count 129,000. Chemistry: Iron 33. TSH 3.651; T4 is 4.3, slightly low. Sodium 135. Valproic acid level 68. RPR titer was pending. ASSESSMENT: 1. Parkinson's dementia 2. Depression. 3. Increased involuntary movements. 4. Vitamin D deficiency. 5. Mood disorder. 6. Fall risk. PLAN: Follow along with Dr. Arana. Treat his medical conditions. ROXANNE HOLLINS DO DR: ONEIL/piter JOB#: [id number] / [id number]
[2017-08-03 17:06] LABS: INFLUENZA A PATIENT NEGATIVE (NEGATIVE); INFLUENZA B PATIENT NEGATIVE (NEGATIVE)
[2017-08-03] MEDS ORDERED: CETIRIZINE HCL 10 MG TABLET PO SCH (18:00)
[2017-08-03] MEDS ORDERED: IV NORMAL SALINE 1,000ML 1,000 ML IV SCH (19:15)
[2017-08-03 19:18] LABS: BASO # 0.1 x10^3/uL (0.0-0.2); BASO % 1 % (0-3); EOS % 0 % (0-3); HEMOGLOBIN 13.3 g/dL (13.0-17.5); LYMPH # 0.6 x10^3/uL (1.0-4.8); LYMPH % 4 % (24-48); MEAN CORPUSCULAR HEMOGLOBIN 33 pg (25-35); MEAN CORPUSCULAR HGB CONC 35 g/dL (31-37); MEAN CORPUSCULAR VOLUME 95 fL (79-100); MONO # 1.7 x10^3/uL (0.0-1.1); MONO % 9 % (0-9); NEUT # 15.8 x10^3uL (1.8-7.7); NEUT % 87 % (31-73); PLATELET COUNT 129 x10^3/uL (140-400); RED BLOOD COUNT 4.01 x10^6/uL (4.30-5.70); RED CELL DISTRIBUTION WIDTH 13.3 % (11.5-14.5); WHITE BLOOD COUNT 18.2 x10^3/uL (4.0-11.0)
[2017-08-03] MEDS ORDERED: ASPI-612 PO (19:21)
[2017-08-03] MEDS ORDERED: ATOR20TA58 PO (19:23)
[2017-08-03] MEDS ORDERED: BISA10SU2 RC (19:24)
[2017-08-03] MEDS ORDERED: BENZ1TAB5 PO (19:24)
[2017-08-03] MEDS ORDERED: CETI10TA16 PO (19:25)
[2017-08-03] MEDS ORDERED: CARB1TAB2 PO (19:25)
[2017-08-03] MEDS ORDERED: CHOL10003 PO (19:30)
--- NOTE | 2017-08-03 20:13 | PDOC ---
Exam Note: Mj Note: Please also refer to the separate dictated note~for this date of service dictated separately.~Patient seen individually. Discussed the patient with Nursing staff reviewed the chart.~Reviewed interim history and current functioning. Reviewed vital signs,~Labs/ Radiology~and current medications noted below. Continue current treatment with the changes noted in the dictated addendum note Assessment: Vital Signs: Vital Signs Date Time Temp Pulse Resp B/P (MAP) Pulse Ox O2 Delivery O2 Flow Rate FiO2 08/03/17 16:05 99.8 100 16 109/55 (73) 93 Labs: Laboratory Tests Test 08/03/17 07:22 08/03/17 16:33 08/03/17 19:05 White Blood Count 6.0 x10^3/uL (4.0-11.0) 18.2 x10^3/uL (4.0-11.0) #H Red Blood Count 4.06 x10^6/uL (4.30-5.70) L 4.01 x10^6/uL (4.30-5.70) L Hemoglobin 13.6 g/dL (13.0-17.5) 13.3 g/dL (13.0-17.5) Hematocrit 38.4 % (39.0-53.0) L 38.0 % (39.0-53.0) L Mean Corpuscular Volume 95 fL (79-100) 95 fL (79-100) Mean Corpuscular Hemoglobin 34 pg (25-35) 33 pg (25-35) Mean Corpuscular Hemoglobin Concent 35 g/dL (31-37) 35 g/dL (31-37) Red Cell Distribution Width 13.0 % (11.5-14.5) 13.3 % (11.5-14.5) Platelet Count 129 x10^3/uL (140-400) L 129 x10^3/uL (140-400) L Neutrophils (%) (Auto) 77 % (31-73) H 87 % (31-73) H Lymphocytes (%) (Auto) 12 % (24-48) L 4 % (24-48) L Monocytes (%) (Auto) 10 % (0-9) H 9 % (0-9) Eosinophils (%) (Auto) 1 % (0-3) 0 % (0-3) Basophils (%) (Auto) 0 % (0-3) 1 % (0-3) Neutrophils # (Auto) 4.6 x10^3uL (1.8-7.7) 15.8 x10^3uL (1.8-7.7) H Lymphocytes # (Auto) 0.7 x10^3/uL (1.0-4.8) L 0.6 x10^3/uL (1.0-4.8) L Monocytes # (Auto) 0.6 x10^3/uL (0.0-1.1) 1.7 x10^3/uL (0.0-1.1) H Eosinophils # (Auto) 0.0 x10^3/uL (0.0-0.7) 0.0 x10^3/uL (0.0-0.7) Basophils # (Auto) 0.0 x10^3/uL (0.0-0.2) 0.1 x10^3/uL (0.0-0.2) Sodium Level 135 mmol/L (136-145) L Potassium Level 3.8 mmol/L (3.5-5.1) Chloride Level 100 mmol/L (98-107) Carbon Dioxide Level 32 mmol/L (21-32) Anion Gap 3 (6-14) L Blood Urea Nitrogen 7 mg/dL (8-26) L Creatinine 0.7 mg/dL (0.7-1.3) Estimated GFR (Cockcroft-Gault) 113.2 BUN/Creatinine Ratio 10 (6-20) Glucose Level 82 mg/dL (70-99) Hemoglobin A1c 5.0 % (4.8-5.6) Calcium Level 8.6 mg/dL (8.5-10.1) Iron Level 33 ug/dL (65-175) L Total Iron Binding Capacity 257 ug/dL (250-450) Iron Saturation 13 % (15-34) L Total Bilirubin 0.4 mg/dL (0.2-1.0) Aspartate Amino Transferase (AST) 19 U/L (15-37) Alanine Aminotransferase (ALT) 11 U/L (16-63) L Alkaline Phosphatase 62 U/L (46-116) Total Protein 5.9 g/dL (6.4-8.2) L Albumin 2.9 g/dL (3.4-5.0) L Albumin/Globulin Ratio 1.0 (1.0-1.7) Triglycerides Level 40 mg/dL (0-150) Cholesterol Level 136 mg/dL (0-200) LDL Cholesterol, Calculated 68 mg/dL (0-100) VLDL Cholesterol, Calculated 8 mg/dL (0-40) Non-HDL Cholesterol Calculated 76 mg/dL (0-129) HDL Cholesterol 60 mg/dL (40-60) Cholesterol/HDL Ratio 2.0 Thyroid Stimulating Hormone (TSH) 3.651 uIU/mL (0.358-3.740) Thyroxine (T4) 4.3 ug/dL (4.5-12.0) L Total Triiodothyronine (TT3) 77 ng/dL (71-180) Valproic Acid Level 68 mcg/mL (50-100) Valproic Acid Last Dose Date 08/02/2017 Valproic Acid Last Dose Time 0800 RPR Titer Additional Testing Pending Influenza Type A (Rapid) Negative (NEGATIVE) Influenza Type B (Rapid) Negative (NEGATIVE) Platelet Estimate Pending Lactic Acid Level 2.4 mmol/L (0.4-2.0) H Creatine Kinase 172 U/L (39-308) Creatine Kinase MB (Mass) 1.1 ng/mL (0.0-3.6) Creatine Kinase MB Relative Index 0.6 % (0-4) Current Medications: Meds: Current Medications Benztropine Mesylate (Cogentin) 1 mg BID PO Last administered on 08/03/17 09: 07; Start 08/03/17 at 09:00 Carbidopa/Levodopa (Sinemet 25/100) 1 tab TID PO Last administered on 16:13; Start 08/03/17 at 09:00 Donepezil HCl (Aricept) 10 mg DAILY PO Last administered on 08/03/17 09:07; Start 08/03/17 at 09:00 Duloxetine HCl (Cymbalta) 60 mg DAILY PO Last administered on 08/03/17 09:07 ; Start 08/03/17 at 09:00 Lorazepam (Ativan) 0.5 mg PRN BID PRN PO ANXIETY / AGITATION Last administered on 08/03/17 12:53; Start 08/02/17 at 23:45 Memantine (Namenda) 10 mg BID PO Last administered on 08/03/17 09:07; Start 08/03/17 at 09:00 Quetiapine Fumarate (SEROquel) 12.5 mg PRN BID PRN PO PSYCHOSIS; Start at 23:45 Quetiapine Fumarate (SEROquel) 25 mg QHS PO ; Start 08/03/17 at 21:00 Valproic Acid (Depakene) 500 mg TID PO Last administered on 08/03/17 16:14; Start 08/03/17 at 09:00 Acetaminophen (Tylenol) 650 mg PRN Q6HRS PRN PO PAIN / TEMP Last administered on 08/03/17 16:12; Start 08/03/17 at 07:00 Aspirin (Children'S Aspirin) 81 mg DAILY PO Last administered on 08/03/17 09: 07; Start 08/03/17 at 09:00 Atorvastatin Calcium (Lipitor) 20 mg QHS PO ; Start 08/03/17 at 21:00 Bisacodyl (Dulcolax Supp) 10 mg PRN DAILY PRN RC CONSTIPATION; Start 08/03/17 at 07:00 Fluticasone Propionate (Flonase) 2 spray DAILY NS Last administered on 09:09; Start 08/03/17 at 09:00 Ketotifen Fumarate (Zaditor) 2 drop BID OU Last administered on 08/03/17 09: 09; Start 08/03/17 at 09:00 Al Hydroxide/Mg Hydroxide (Mylanta Plus Xs) 15 ml PRN AFTMEALHC PRN PO DYSPEPSIA; Start 08/03/17 at 07:00 Magnesium Hydroxide (Milk Of Magnesia) 2,400 mg PRN QHS PRN PO CONSTIPATION; Start 08/03/17 at 07:00 Multi-Ingredient Ointment (Analgesic [place]) 1 angelica PRN QID PRN TP MUSCLE PAIN; Start 08/03/17 at 07:00 Artificial Tears (Refresh Classic) 1 drop PRN QID PRN OU DRY EYES; Start 08/03 at 07:00; Stop 08/03/17 at 07:27; Status DC Vitamin D (Vitamin D3) 4,000 unit DAILY PO Last administered on 08/03/17 09: 07; Start 08/03/17 at 09:00 Cetirizine HCl (ZyrTEC) 10 mg QPM PO ; Start 08/03/17 at 18:00 Artificial Tears (Refresh Classic) 1 drop PRN QID PRN OU DRY EYES; Start 08/03 at 07:27 Sodium Chloride 1,000 ml @ 150 mls/hr Q6H40M IV Last administered on t 19:15; Start 08/03/17 at 19:15 Active Scripts Active Reported Cetirizine Hcl 10 Mg Tablet 10 Mg PO QPM Milk Of Magnesia (Magnesium Hydroxide) 400 Mg/5 Ml Oral.susp 2,400 Mg PO PRN QHS PRN Depakene (Valproate Sodium) 250 Mg/5 Ml Solution 500 Mg PO TID Vitamin D (Cholecalciferol (Vitamin D3)) 1,000 Unit Capsule 4,000 Unit PO DAILY Seroquel (Quetiapine Fumarate) 25 Mg Tablet 25 Mg PO QHS Refresh Classic Eye Drops (Polyvinyl Alcohol/Povidone/Pf) 1 Each Droperette 1 Drp OU PRN QID Analgesic [place] (Methyl Salicylate/Menthol) 28 Gm Oint...g. 1 Angelica TP PRN QID PRN Fluticasone Propionate Nasal [place] (Fluticasone Propionate) 16 Gm [place].susp 2 [place] NS DAILY Sinemet 25-100 Mg Tablet (Carbidopa/Levodopa) 1 Each Tablet 1 Tab PO TID Benztropine Mesylate 1 Mg Tablet 1 Mg PO BID Atorvastatin Calcium 20 Mg Tablet 20 Mg PO QHS [place] (Ketotifen Fumarate) 10 Ml Drops 2 Drop EACHEYE BID Bisacodyl 10 Mg Supp.rect 10 Mg RC PRN DAILY PRN Lorazepam 0.5 Mg Tablet 0.5 Mg TP PRN BID PRN Seroquel (Quetiapine Fumarate) 25 Mg Tablet 12.5 Mg PO PRN BID PRN Aspirin 81 Mg Tab.chew 81 Mg PO DAILY Maalox Maximum Strength Susp (Mag Hydrox/Al Hydrox/Simeth) 355 Ml Oral.susp 15 Ml PO PRN AFTMEALHC PRN Tylenol (Acetaminophen) 325 Mg Tablet 650 Mg PO PRN Q6HRS PRN Cymbalta (Duloxetine Hcl) 60 Mg Capsule.dr 60 Mg PO DAILY DO NOT CRUSH OR CHEW Namenda (Memantine Hcl) 10 Mg Tablet 10 Mg PO BID Aricept (Donepezil Hcl) 10 Mg Tablet 10 Mg PO DAILY I have reviewed the current psychotropics carefully including drug interactions. Risk benefit ratio favors no change other than as noted in my dictated progress note. Diagnosis: Problems: (1) Anxiety disorder (2) Impulse control disorder (3) Dementia, vascular, with depression (4) Dementia, vascular, with delusions (5) Dementia in Alzheimer's disease with depression (6) Dementia in Alzheimer's disease with delusions ISACC WEAVER MD Aug 03, 2017 20:13
[2017-08-03] MEDS ORDERED: ATORVASTATIN CALCIUM 20 MG TABLET PO SCH (21:00)
[2017-08-03] MEDS ORDERED: QUEtiapine 25 MG TABLET. PO SCH (21:00)
[2017-08-03 21:17] LABS: % BANDS 13 % (0-9); % LYMPHS 3 % (24-48); % MONOS 5 % (0-10); % SEGS 75 % (35-66)
[2017-08-03 21:19] LABS: PLT ESTIMATE ADEQUATE (ADEQUATE)
[2017-08-03 21:33] LABS: % ATYL 4 % (0-0)
--- NOTE | 2017-08-03 21:41 | HP ---
ADMIT DATE: 08/03/2017 PSYCHIATRIC ADMISSION HISTORY AND EVALUATION AND DISCHARGE SUMMARY This note covers elements not covered in my initial note of 08/03/2017. IDENTIFYING DATA: The patient is a 67-year-old male, who returns back to us from [facility] Emergency Room, where he was sent from the [facility], where he has been residing. He was referred on account of increased shaking, symptoms of extrapyramidal syndrome, involuntary movements, eyes rolling back in his head. I met with the patient's at some length the evening of 08/03/2017 and she states he has been over sedated on Seroquel 125 mg a day and this was reduced to 25 mg a day on 07/30/2017. Since then, she feels he has been increasingly having worsening involuntary movements, extrapyramidal symptoms, shaking, being unable to ambulate, increasing agitation, stares out into space at times and even more confused in the context of his Lewy body dementia. He is referred from the Emergency Room at [facility] for inpatient psychiatric stabilization. CHIEF COMPLAINT: "No." The patient is not interactive or able to respond to questions at all. I met with the patient's at some length the evening of 08/03/2017. HISTORY OF PRESENT ILLNESS: The patient has a history of Lewy body dementia versus vascular dementia. He has been hospitalized here in the past. Most recently he has been at [facility], doing reasonably well other than the marked confusion. However, he has been sedated and the Seroquel was changed as noted above on 07/30/2017 and since then he has had all the above changes. No clear history of bipolar disorder, suicidal or homicidal ideation. PAST PSYCHIATRIC HISTORY: As above. PAST MEDICAL HISTORY: Parkinson's disease, vitamin D deficiency, hyperlipidemia, and chronic constipation. DRUG ALLERGIES: Negative. CODE STATUS: Full code per DPOA. Prehospital DNR form on chart. REVIEW OF SYSTEMS: Regular. Ambulates with a wheelchair, now ambulated independently 3 days ago. CURRENT PSYCHOTROPICS: Aricept 10 mg a day, Cymbalta 60 mg a day, Namenda 10 mg b.i.d., Depakene liquid 500 mg t.i.d., Ativan p.r.n., and Seroquel 25 at bedtime and 25 mg b.i.d. p.r.n. anxiety, agitation. FAMILY HISTORY: Noncontributory. SOCIAL HISTORY: The patient is . No alcohol or drug abuse, physical, sexual or elder abuse. MENTAL STATUS EXAMINATION: The patient was seen individually. He is oriented perhaps not even to himself, appears somewhat medically quite compromised. Insight, judgment, recent and remote memory, attention, concentration, fund of knowledge poor, consistent with his diagnosis unable to relate review of system symptoms. SIGNIFICANT FINDINGS AND CLINICAL COURSE: Following admission, the patient was seen by myself from a psychiatric standpoint, followed medically per Dr. Stephenson. I met with his as well. We will continue his current psychotropics, but at the time of this dictation, he was found to be medically compromised to a point where he is unable to be kept on the [facility] and is being transferred to the ICU per Dr. Stephenson. No further changes in psychotropics were made during this overnight stay on the unit. FINAL DIAGNOSIS: Unchanged from admission. DISCHARGE MEDICATIONS: Unchanged from admission. We would be happy to reassess the patient whether he would benefit from coming back on the unit for psychiatric stabilization once he is medically stable. ISACC WEAVER MD DR: MARIAM/piter JOB#: [id number] / [id number]
== END 2017-08-03 20:10 | disposition short-term general hospital (02) | DRG 57 ==
LOC: GEROPSY 22:50
PROVIDERS: ADMIT Psychiatry & Neurology Psychiatry; ATTEND Psychiatry & Neurology Psychiatry
DX: G30.9 Alzheimer's disease, unspecified (principal); F01.51 Vascular dementia, unspecified severity, with behavioral disturbance; G20 Parkinson's disease; F02.81 Dementia in other diseases classified elsewhere, unspecified severity, with behavioral disturbance; F22 Delusional disorders; E55.9 Vitamin D deficiency, unspecified; E78.5 Hyperlipidemia, unspecified; F32.9 Major depressive disorder, single episode, unspecified; F41.9 Anxiety disorder, unspecified; K59.09 Other constipation; F63.9 Impulse disorder, unspecified; Z91.81 History of falling
CPT/HCPCS: 36415; 80053; 80061; 80164; 82306; 82553; 82607; 83036; 83540; 83550; 83605; 84436; 84443; 84480; 85007; 85025; 86592; 86593; 87804; J7030

== ENCOUNTER 2017-08-03 20:00 | Inpatient (IN) | payer MEDICARE ==
[2017-08-03] VITALS (7 sets, daily range): BP systolic 68–90; BP diastolic 50–58
[~2017-08-03] VITALS: Ht 182.9 cm; Wt 72.6 kg
[~2017-08-03 20:00] MED LIST changes: +ASPI-612 PO; +ATIVAN TOP; +CETI10TA16 PO; +CHOL100013 PO; +CHOL10003 PO; +MAGN400O7 PO; +VALP250S PO
[2017-08-03] MEDS ORDERED: PIP/TAZO PER PHARMACY MC PRN (21:00)
[2017-08-03] MEDS ORDERED: ACETAMINOPHEN 325 MG TABLET PO PRN (21:00)
[2017-08-03] MEDS ORDERED: IV NORMAL SALINE 1,000ML 1,000 ML IV ONE (21:00)
[2017-08-03 21:06] LABS: ALBUMIN 2.8 g/dL (3.4-5.0); ALBUMIN/GLOBULIN RATIO 0.9 (1.0-1.7); CALCIUM 8.5 mg/dL (8.5-10.1); CREATININE 1.1 mg/dL (0.7-1.3); GFR 67.2; POTASSIUM 3.9 mmol/L (3.5-5.1); TOTAL BILIRUBIN 0.5 mg/dL (0.2-1.0); TOTAL PROTEIN 5.8 g/dL (6.4-8.2)
[2017-08-03] MEDS: PIPERACILLIN/TAZOBACTAM 4.5 GM in IV NORMAL SALINE 50ML 50 ML IV SCH (21:36)
--- NOTE | 2017-08-03 21:50 | RAD ---
AP portable chest x-ray HISTORY: Leukocytosis and fever FINDINGS: Heart size normal. Mediastinal silhouette is normal. Small calcified granuloma right upper lobe. No pneumothorax, pulmonary opacities or pleural effusions. Bones unremarkable. IMPRESSION: No acute process. Electronically signed by: Austin Hawk MD (08/03/2017 9:46 PM) [facility]
[2017-08-03 22:14] LABS: BILIRUBIN,URINE NEG (NEG); CLARITY,URINE HAZY; COLOR,URINE AMBER; GLUCOSE,URINE 100 mg/dL (NEG); NITRITE,URINE POS (NEG); UROBILINOGEN,URINE 8 mg/dL (0.2 mg/dL)
[2017-08-03 22:15] LABS: BACTERIA,URINE FEW /HPF (0-FEW); RBC,URINE >40 /HPF (0-2); WBC,URINE >40 /HPF (0-4)
[2017-08-04] VITALS (23 sets, daily range): BP systolic 75–111; BP diastolic 43–74
[2017-08-04] MEDS ORDERED: IV NORMAL SALINE 1,000ML 1,000 ML IV ONE ×2 (01:00)
[2017-08-04] MEDS ORDERED: ACETAMINOPHEN 650 MG SUPP.RECT. PR PRN (06:30)
[2017-08-04] MEDS ORDERED: BISACODYL 10 MG SUPP.RECT RC PRN (06:30)
[2017-08-04] MEDS ORDERED: LORazepam 0.5 MG TABLET PO PRN (06:30)
[2017-08-04] MEDS ORDERED: ACETAMINOPHEN 325 MG TABLET PO PRN (06:30)
[2017-08-04] MEDS ORDERED: QUEtiapine 25 MG TABLET. PO PRN (06:30)
[2017-08-04 06:52] LABS: BASO % 0 % (0-3); EOS % 0 % (0-3); HEMATOCRIT 36.7 % (39.0-53.0); HEMOGLOBIN 12.6 g/dL (13.0-17.5); LYMPH % 6 % (24-48); MEAN CORPUSCULAR HEMOGLOBIN 33 pg (25-35); MEAN CORPUSCULAR HGB CONC 34 g/dL (31-37); MEAN CORPUSCULAR VOLUME 96 fL (79-100); MONO # 1.8 x10^3/uL (0.0-1.1); MONO % 10 % (0-9); NEUT # 14.6 x10^3uL (1.8-7.7); NEUT % 84 % (31-73); PLATELET COUNT 110 x10^3/uL (140-400); RED BLOOD COUNT 3.82 x10^6/uL (4.30-5.70); RED CELL DISTRIBUTION WIDTH 13.2 % (11.5-14.5); WHITE BLOOD COUNT 17.4 x10^3/uL (4.0-11.0)
[2017-08-04 06:56] LABS: CALCIUM 8.3 mg/dL (8.5-10.1); CREATININE 0.9 mg/dL (0.7-1.3); GFR 84.7; MAGNESIUM 1.5 mg/dL (1.8-2.4)
[2017-08-04] MEDS: PIPERACILLIN/TAZOBACTAM 4.5 GM in IV NORMAL SALINE 50ML 50 ML IV SCH ×3 (07:23→19:52)
[2017-08-04] MEDS ORDERED: MAGNESIUM SULFATE 2GM 50 ML IV ONE ×2 (07:45→13:30)
[2017-08-04] MEDS: CARBIDOPA/LEVODOPA 25/100MG TABLET PO SCH ×3 (08:26→20:13)
[2017-08-04] MEDS: LACTOBACILLUS RHAMNOSUS GG 1 CAPSULE. PO SCH ×2 (08:26→20:14)
[2017-08-04] MEDS: BENZTROPINE MESYLATE 1 MG TABLET PO SCH ×2 (08:26→20:14)
[2017-08-04] MEDS: VALPROATE ACID 250 MG/5 ML ORAL SOLUTION PO SCH ×3 (08:26→20:13)
[2017-08-04] MEDS: DULoxetine HCL 60 MG CAPSULE.DR PO SCH (08:26)
[2017-08-04] MEDS: ASPIRIN 81 MG TAB.CHEW PO SCH (08:26)
[2017-08-04] MEDS: IV NORMAL SALINE 1,000ML 1,000 ML IV PRN ×2 (10:16→20:15)
--- NOTE | 2017-08-04 12:51 | CONS ---
DATE OF CONSULTATION: 08/04/2017 REASON FOR CONSULTATION: Confusion and tremor of the arms and legs. HISTORY OF PRESENT ILLNESS: This is a 67-year-old male who has had a history of dementia and possible Lewy body type was admitted through Emergency Room after he presented with increasing symptoms of shaking of the upper and lower extremities, confusion, difficulty walking, and unable to communicate. The patient was diagnosed with Lewy body dementia and he was admitted to the Geropsychiatric Unit at [facility]. His stated he has difficulty ambulating because of stiffness of the lower extremities. The patient was found to have urinary tract infections and he has been on antibiotics. The patient closed his eye most of the time and he is not able to provide any information probably due to his dementia and recent worsening. PAST MEDICAL HISTORY: Significant for Lewy body dementia, vitamin D deficiency, hyperlipidemia, and Parkinson's disease. CURRENT MEDICATIONS: Include valproic acid 500 mg t.i.d., Cymbalta 60 mg daily, carbidopa/levodopa 25/100 mg 1 tablet t.i.d., Cogentin 1 mg b.i.d., aspirin 81 mg p.o. daily, Seroquel 12.5 mg b.i.d., lorazepam 0.5 mg b.i.d. p.r.n. for anxiety, Tylenol, IV Zosyn. ALLERGIES: No known drug allergies. REVIEW OF SYSTEMS: A 10-point review of systems was performed and as mentioned above in the history of present illness. PHYSICAL EXAMINATION: GENERAL: Well-developed, well-nourished white male, not in acute distress. He weighs 154 pounds. VITAL SIGNS: Blood pressure 102/58, respiratory rate 18, pulse is 83 regular, temperature is 97.7, oxygen saturation 98% on room air. HEENT: Normocephalic, atraumatic, otherwise unremarkable. NECK: Supple. Negative for carotid bruits, lymphadenopathy or thyromegaly. CHEST: Lungs are clear to A and P. CARDIOVASCULAR: Regular rhythm, normal S1, S2. There is a 2/6 systolic murmur radiating to the upper chest on the left side. ABDOMEN: Soft, bowel sounds positive. EXTREMITIES: Negative for cyanosis, clubbing, or pitting edema. NEUROLOGIC: 1. Mental status: The patient is drowsy, responds to simple 1-step command as squeezing the hands. He does not follow any other commands. He is not able to talk or communicate. Memory, judgment, and abstract thinking are poor. Further evaluation is limited at this time. 2. Cranial nerves: The pupils are reactive to light. The extraocular movements are intact without nystagmus. There is no facial motor or sensory deficit. Further evaluation is limited because of mental status changes. 3. Motor examination: No focal muscle bulk was seen. The strength is 4/5 throughout. The tone is increased in the lower extremities and neck. Sensory examination revealed withhold his upper and lower extremities to noxious stimuli. Deep tendon reflexes were symmetric and active without pathological responses. Gait not tested. The patient had paroxysmal tremor of the upper and lower extremities, lasted few seconds. LABORATORY DATA: CBC revealed white blood cells of 17.4000, hemoglobin of 12.6, hematocrit 36.7, platelet count of 110,000. Chemistry revealed sodium of 136, potassium 4, chloride 104, CO2 of 28. BUN 9, creatinine 0.9, glucose 97, calcium 8.3, magnesium 1.3. Urinalysis is positive for urine nitrite and moderate urine leukocyte esterase and increased white blood cells more than 40. DIAGNOSTIC DATA: Initial chest x-ray revealed no evidence for acute process. IMPRESSION: 1. Known history of possible Lewy body dementia presented with dementia and Parkinson-like symptoms including tremor of the upper and lower extremities with increased masked face and increased rigidity of the neck and lower extremities. 2. Urinary tract infections. 3. Vitamin D deficiency. 4. Hyperlipidemia. 5. Severe depression. RECOMMENDATIONS: Continue with current management initiated by Dr. Arana and continue with current management for urinary tract infection. M Nikki MURPHY MD DR: RICHA/piter JOB#: [id number] / [id number]
[2017-08-04] MEDS ORDERED: NOREPINEPHRINE BITARTRATE 8 MG in IV NORMAL SALINE 250ML 250 ML IV PRN (13:00)
--- NOTE | 2017-08-04 14:17 | HP ---
ADMIT DATE: 08/03/2017 HISTORY OF PRESENT ILLNESS: The patient is a 67-year-old [id number] male patient, a resident at [facility] who was basically admitted on 08/03/2017, where he was noted to have increasing shaking, extrapyramidal symptom, increased involuntary movement with his eyes rolling to the back of his head. His Seroquel apparently decreased the bizarre behavior of staring into the space, but he has been having increased agitation again and he has been unable to ambulate. The onset of symptoms started on 07/31/2017. He was seen at [facility] Emergency Room and has had extensive workup there and from there he was [facility] for inpatient [facility] stabilization. Apparently, Dr. Judge, his psychiatrist has decreased his Seroquel from 125 to 25 mg without much improvement. PAST SURGICAL HISTORY: Significant for Parkinson's disease, depression, falling, vitamin D deficiency, mood disorder, constipation, anxiety. ALLERGIES: He has no known drug allergies. Apparently, he was noted to be hypertensive and therefore, the patient was transferred to ICU with hypertension and possible sepsis. MEDICATIONS: He is currently on following medications: He is on Tylenol 650 mg per rectum every 6 hours as needed, aspirin 81 mg once a day, atorvastatin, calcium 20 mg at bedtime, benztropine 1 mg p.o. b.i.d., bisacodyl 10 mg rectally as needed for constipation, carbidopa/levodopa (Sinemet) 25/100 three times a day, cetirizine 10 mg daily, cholecalciferol vitamin D3 4000 units p.o. daily, Aricept 10 mg daily, duloxetine 60 mg daily, Flonase 2 sprays to each nostril once a day, ketotifen fumarate 2 drops to both eyes twice a day, lorazepam 0.5 mg twice a day, Maalox 15 mL every 4 hours as needed, milk of magnesia 30 mL p.o. daily p.r.n. for constipation, Namenda 10 mg p.o. b.i.d., polyvinyl alcohol Refresh Classic eyedrops 1 drop to both eyes 4 times a day, Seroquel 12.5 mg b.i.d., Seroquel 25 mg at bedtime, valproic acid 500 mg p.o. t.i.d. FAMILY HISTORY: Unremarkable. The patient had been living in [facility] up until 2016. He does walk with his significant fall risk. He is incontinent of bowel or bladder. He needs assistance with feeding. PHYSICAL EXAMINATION: GENERAL: On arrival to the ICU, the patient was clearly markedly hypertensive, pale, but no jaundice, cyanosis, or thyromegaly, no jugular vein distention, no limb edema VITAL SIGNS: His heart rate was 100, blood pressure was 168/50, temperature was 98.3, respiratory rate was 20, and oxygen saturation was 98%. HEAD, EYES, EARS, NOSE AND THROAT: Normocephalic, atraumatic. NECK: Supple. HEART: Showed normal first and second heart sounds. No gallop, rub or murmur. CHEST: Clear to auscultation. No crepitation or rhonchi. ABDOMEN: Distended, soft, nontender. No guarding or rigidity. No organomegaly. Hernial orifice intact. Bowel sounds normal. NEUROLOGIC: He closed his eyes, does not really respond to painful or verbal stimuli. He is mostly bed bound with tremors involving upper extremities. LABORATORY DATA: On arrival showed a white cell count of 17,400; hemoglobin 12.6; hematocrit 36; MCV 96; and platelet count of 110,000. His chemistry showed a serum sodium 133, potassium 3.9, chloride 98, bicarbonate 27, anion gap of 8, BUN 10, creatinine is 1.1. Estimated GFR was 67 mL per minute. Her glucose was 171. Lactic acid is only 0.9 mg/dL. Calcium was 8.5. Total bilirubin, AST, ALT, alkaline phosphatase were normal. Total protein was 5.8, albumin was 2.8. His urinalysis showed the urine was tashi, hazy with a pH of 6.5, specific gravity 1.025. There was large amount of protein, positive for glucose, ketones, large amount of blood, positive for nitrite, moderate amount of leukocyte esterase, more than 40 wbc's, more than 40 rbc's and very few bacteria. He has had a chest x-ray, which showed the heart size is normal. Mediastinal silhouette is normal, small calcified granuloma of the right upper lobe. No pneumothorax, pulmonary opacities or pleural effusion. Bones unremarkable. IMPRESSION: 1. In summary, this is a 67-year-old male patient with known history of possible Lewy body dementia, presented with dementia and Parkinson-like symptoms including tremors of upper and lower extremities with increased mask face and increased rigidity of the neck and lower extremities. 2. Urinary tract infection. 3. Vitamin D deficiency. 4. Hyperlipidemia. 5. Severe depression. 6. He is definitely septic, hypotensive, although this could be part of his autonomic neuropathy that comes with Parkinson's disease. He was started on IV fluid as well as he was continued on all his medication and started on IV antibiotic in the form of Zosyn 3.35 g IV q. 6 hourly. He was started actually on dopamine with the aim to titrate his mean arterial pressure of 65. He has an indwelling Muñoz catheter. We will repeat all his lab work and adjust antibiotics according to the result of the culture and sensitivity. We have already consulted Dr. Arana as well as Dr. Sharma. Once his blood pressure is stabilized, we will consult Physical and Occupational Therapy. CONCHITA ELLIS MD DR: NURYS/piter JOB#: [id number] / [id number]
--- NOTE | 2017-08-04 23:55 | PN ---
DATE: 08/04/2017 SUBJECTIVE: The patient is a 67-year-old male patient who was transferred from [facility] Unit. He apparently was diagnosed with Lewy body dementia and he was admitted to Geropsychiatric Unit at [facility]. His stated that he has difficulty ambulating because of stiffness in lower extremities. He was found to have urinary tract infection and was transferred to [facility] HERE CONCHITA ELLIS MD DR: NURYS/piter JOB#: [id number] / [id number]
--- NOTE | 2017-08-04 23:57 | PN ---
DATE: 08/04/2017 SUBJECTIVE: The patient continued to be unresponsive, closes his eyes with marked rigidity and tremors of both upper and lower extremities, continued to be hypotensive despite being on dopamine drip as well as IV fluid; however, he is afebrile today. OBJECTIVE: GENERAL: On examining him, he looked pale, but no jaundice, cyanosis, or thyromegaly. No jugular venous distention. No limb edema. VITAL SIGNS: His heart rate was 82, blood pressure was 91/63, temperature was 97.9, respiratory rate was 16, and oxygen saturation was 97% on room air. HEAD, EARS, NOSE AND THROAT: Normocephalic, atraumatic. NECK: Supple. HEART: Showed normal first and second sounds. No gallop, rub or murmur. CHEST: Clear to auscultation. No crepitation or rhonchi. ABDOMEN: Distended, soft, and nontender. No guarding or rigidity. No organomegaly. Hernial orifices intact. Bowel sounds normal. NEUROLOGIC: He is currently unresponsive. He does not open his eyes, extremity marked rigidity with tremors, more prominent in his upper and lower extremities, he is mostly bedbound. His intake over the last 24 hours was 2520, output was 330. LABORATORY DATA: As of this morning showed a white cell count of 17,400, hemoglobin 12.6, hematocrit of 6.7, MCV 96, and platelet count of 110,000 with normal manual differential. His chemistry showed a serum sodium 136, potassium 4, chloride 104, bicarbonate 28, anion gap of 4, BUN 9, creatinine 0.9, estimated GFR was 85 mL per minute. His glucose was 97, calcium was 8.3, magnesium was 1.5. ASSESSMENT: Sepsis likely due to urinary tract infection, hypertension, likely due to sepsis as well as possible autonomic neuropathy due to Parkinson's disease. Other medical problems include Lewy body dementia, Parkinson's disease, and vitamin D deficiency. He has also hypomagnesemia. PLAN: My plan is to give him a bolus of IV fluid at 500 mL of normal saline, switch him to Levophed. Hopefully, await the result, continue IV fluid at 125 mL per hour, titrate Levophed to maintain mean arterial pressure about 65 mmHg. We will replenish his magnesium. I will repeat all his lab work tomorrow. CONCHITA ELLIS MD DR: Amilcar JOB#: [id number] / [id number]
[2017-08-05] VITALS (24 sets, daily range): BP systolic 83–123; BP diastolic 50–94
[2017-08-05] MEDS: PIPERACILLIN/TAZOBACTAM 4.5 GM in IV NORMAL SALINE 50ML 50 ML IV SCH ×5 (00:04→23:49)
[2017-08-05] MEDS: IV NORMAL SALINE 1,000ML 1,000 ML IV PRN ×3 (05:45→22:01)
[2017-08-05 06:15] LABS: HEMATOCRIT 35.3 % (39.0-53.0); HEMOGLOBIN 12.1 g/dL (13.0-17.5); RED BLOOD COUNT 3.68 x10^6/uL (4.30-5.70); RED CELL DISTRIBUTION WIDTH 13.4 % (11.5-14.5); WHITE BLOOD COUNT 15.4 x10^3/uL (4.0-11.0)
[2017-08-05 06:27] LABS: ALBUMIN 2.3 g/dL (3.4-5.0); ALBUMIN/GLOBULIN RATIO 0.7 (1.0-1.7); CALCIUM 8.1 mg/dL (8.5-10.1); CREATININE 0.8 mg/dL (0.7-1.3); MAGNESIUM 2.1 mg/dL (1.8-2.4); POTASSIUM 3.5 mmol/L (3.5-5.1); TOTAL BILIRUBIN 0.4 mg/dL (0.2-1.0); TOTAL PROTEIN 5.5 g/dL (6.4-8.2)
[2017-08-05] MEDS: LACTOBACILLUS RHAMNOSUS GG 1 CAPSULE. PO SCH ×2 (08:06→20:58)
[2017-08-05] MEDS: ASPIRIN 81 MG TAB.CHEW PO SCH (08:06)
[2017-08-05] MEDS: VALPROATE ACID 250 MG/5 ML ORAL SOLUTION PO SCH ×3 (08:06→20:58)
[2017-08-05] MEDS: CARBIDOPA/LEVODOPA 25/100MG TABLET PO SCH ×3 (08:06→20:58)
[2017-08-05] MEDS: DULoxetine HCL 60 MG CAPSULE.DR PO SCH (08:06)
[2017-08-05] MEDS: BENZTROPINE MESYLATE 1 MG TABLET PO SCH ×2 (08:07→20:58)
--- NOTE | 2017-08-05 11:29 | PN ---
DATE: 08/03/2017 SUBJECTIVE: The patient could not communicate or follow commands. We have asked him, how he is doing. He said okay, then he stopped communicating. He does not follow any commands. OBJECTIVE: GENERAL: Well-developed, well nourished male, not in acute distress. VITAL SIGNS: Blood pressure 102/73, respiratory rate 18, pulse is 71 regular, temperature 97.9, oxygen saturation 96% on room air. HEENT: Normocephalic, atraumatic. Otherwise, unremarkable. NECK: Mildly stiff, but negative for carotid bruit, lymphadenopathy or thyromegaly. LUNGS: Clear to A and P. CARDIOVASCULAR: Regular rate and rhythm, normal S1, S2. ABDOMEN: Soft. Bowel sounds positive. EXTREMITIES: Negative for cyanosis, clubbing or pitting edema. NEUROLOGICAL EXAM: Mental Status: The patient is awake, but non-communicative. Further evaluation of his mental status is limited. Cranial nerves: The pupils are reactive to light and accommodation. The extraocular movements are intact. There is no nystagmus. There is no facial motor or sensory deficit. Hearing appears to be intact. Further evaluation is limited by motor examination, the patient moves his upper and lower extremities equally. The strength is 4/5. The patient has a constant tremor of the arms and legs, may be when I saw taking to him. The tone is increased in the lower extremities. Sensory examination revealed normal pinprick and light touch senses. Deep tendon reflexes were symmetric and hypoactive with absent Achilles responses. Gait not tested. LABORATORY DATA: CBC revealed white blood cells of 15,400, hemoglobin 12.1, hematocrit 35.3, platelet count 132,000. Chemistry revealed sodium of 142, potassium is 3.5, chloride 106, CO2 29. BUN 5, creatinine 0.8, glucose is 83, calcium 8.1. Urinalysis is consistent with urinary tract percussion and is recurrent blood culture revealed no growth after one day. IMPRESSION: 1. Dementia, probably of Lewy body type, presented with decline in high cognitive functions and resting tremors of the upper and lower extremities. 2. Urinary tract infections. 3. Vitamin D deficiency. 4. Severe depression and hyperlipidemia. 5. Urinary tract infection versus sepsis. RECOMMENDATIONS: Question hyperlipidemia, continue with current medication and medical and psychiatric care. M Nikki MURPHY MD DR: [place] JOB#: [id number] / [id number]
[2017-08-05] MEDS: MIDODRINE 2.5 MG TABLET PO SCH ×2 (13:25→18:04)
[2017-08-05] MEDS: POLYVINYL ALCOHOL/POVIDONE/PF OPHTH SOLUTION DROPERETTE. OU PRN (18:07)
--- NOTE | 2017-08-05 18:28 | PN ---
DATE: 08/05/2017 SUBJECTIVE: The patient is resting, slightly propped up in bed, in no apparent distress. He keeps his eyes closed, but he is being fed and eats and drinks without difficulty. He continued to have tremors. His blood pressure is much better today. He continues to be on Levophed. OBJECTIVE: GENERAL: On examining, he looked well and was clearly in no apparent respiratory distress, pale, but no jaundice, cyanosis, or thyromegaly. NECK: No jugular venous distension, no edema. VITAL SIGNS: Her heart rate was 84, blood pressure was 109/63, temperature was 97.9, respiratory rate was 20, and oxygen saturation was 99% on room air. The rest of clinical examination is stable, has not really changed. Her intake was 3750, output was 1675. LABORATORY DATA: As of this morning showed a serum sodium 142, potassium 3.5, chloride 106, bicarbonate 29, anion gap of 7, BUN 5, creatinine 0.8, estimated GFR was 97 mL per minute. His glucose was 83, calcium was 8.1, magnesium 2.1. Total bilirubin, AST, ALT, alkaline phosphatase were normal. Total protein was 5.5, albumin 2.3. White cell count was down to 15,400, hemoglobin 12, hematocrit 35, MCV 96, and platelet count of 132,000. ASSESSMENT: 1. History of possible Lewy body dementia presenting with dementia and Parkinson-like symptoms including tremors upper and lower extremities and increased masked face, increased rigidity of the neck and lower extremities. 2. Urinary tract infection. His urinalysis showed there is more than 40 WBCs with marked leukocytosis and although shows only few bacteria. So far, his blood cultures are negative. 3. Vitamin D deficiency. 4. Hyperlipidemia. 5. Severe depression. 6. He is obviously septic, hypotensive, although part of the hypertension might be related to the fact that he has autonomic neuropathy. PLAN: My plan is to continue with IV fluid, continue with IV Zosyn. I will start midodrine and hopefully titrate and discontinue Levophed. CONCHITA ELLIS MD DR: NURYS/piter JOB#: [id number] / [id number]
[2017-08-06] VITALS (11 sets, daily range): BP systolic 82–125; BP diastolic 60–72
[2017-08-06] MEDS: PIPERACILLIN/TAZOBACTAM 4.5 GM in IV NORMAL SALINE 50ML 50 ML IV SCH ×4 (05:19→23:31)
[2017-08-06 06:20] LABS: HEMATOCRIT 31.9 % (39.0-53.0); HEMOGLOBIN 11.3 g/dL (13.0-17.5); RED BLOOD COUNT 3.34 x10^6/uL (4.30-5.70); RED CELL DISTRIBUTION WIDTH 13.2 % (11.5-14.5); WHITE BLOOD COUNT 9.6 x10^3/uL (4.0-11.0)
[2017-08-06 06:35] LABS: ALBUMIN 1.8 g/dL (3.4-5.0); ALBUMIN/GLOBULIN RATIO 0.6 (1.0-1.7); CALCIUM 7.8 mg/dL (8.5-10.1); CREATININE 0.7 mg/dL (0.7-1.3); GFR 113.2; POTASSIUM 3.5 mmol/L (3.5-5.1); TOTAL BILIRUBIN 0.4 mg/dL (0.2-1.0); TOTAL PROTEIN 4.7 g/dL (6.4-8.2)
[2017-08-06] MEDS: IV NORMAL SALINE 1,000ML 1,000 ML IV PRN ×2 (06:49→18:00)
[2017-08-06] MEDS: DULoxetine HCL 60 MG CAPSULE.DR PO SCH (09:11)
[2017-08-06] MEDS: ASPIRIN 81 MG TAB.CHEW PO SCH (09:12)
[2017-08-06] MEDS: MIDODRINE 2.5 MG TABLET PO SCH ×2 (09:12→12:56)
[2017-08-06] MEDS: LACTOBACILLUS RHAMNOSUS GG 1 CAPSULE. PO SCH ×2 (09:12→21:08)
[2017-08-06] MEDS: VALPROATE ACID 250 MG/5 ML ORAL SOLUTION PO SCH ×3 (09:12→20:59)
[2017-08-06] MEDS: CARBIDOPA/LEVODOPA 25/100MG TABLET PO SCH ×4 (09:12→21:09)
[2017-08-06] MEDS: BENZTROPINE MESYLATE 1 MG TABLET PO SCH ×3 (09:12→21:09)
--- NOTE | 2017-08-06 13:53 | PN ---
DATE: SUBJECTIVE: The patient cannot communicate. He just stares. I was with the patient last night and told by the nursing staff that the patient might have generalized seizure-like activities. He was jerking for a few minutes; however, he did not lose his consciousness. He had kind of response by saying some words during the spells. Otherwise, he continues to have mild resting tremors of the upper and lower extremities. OBJECTIVE: GENERAL: Well-developed, well-nourished, male, not in acute distress. VITAL SIGNS: Blood pressure is 82/64, respiratory rate is 15, pulse is 66 and regular, temperature is 98.1, oxygen saturation 98% on room air. HEENT: Normocephalic, atraumatic, otherwise unremarkable. NECK: Negative for carotid bruit, lymphadenopathy or thyromegaly. LUNGS: Clear to A and P. CARDIOVASCULAR: Regular rate and rhythm, normal S1, S2. ABDOMEN: Soft. Bowel sounds positive. EXTREMITIES: Negative for cyanosis, clubbing or pitting edema. NEUROLOGICAL: Mental Status: The patient is arousable. He is awake. He is having breakfast, but he is not communicative nor does he follow any commands. The pupils are reactive to light. Extraocular movements are slow. The patient has resting tremors of the upper and lower extremities with increased tone in the lower extremities. Deep tendon reflexes were symmetric and hypoactive without pathology responses. Gait and coordination are normal. LABORATORY DATA: CBC revealed white cells of 9600; hemoglobin 11.3; hematocrit 31.9; platelet count 120,000. Chemistry revealed sodium of 140, potassium 3.5, chloride 106, CO2 of 28, BUN 4, creatinine 0.7, glucose 85, calcium is 7.8. IMPRESSION: 1. Dementia, probably of Lewy body type, complicated with acute encephalopathy, probably due to underlying urosepsis. 2. Questionable of seizure-like activities -- no recurrence today. 3. Multiple medical problems include sepsis, vitamin D deficiency, depressions and hyperlipidemia. RECOMMENDATIONS: 1. I will increase carbidopa/levodopa to 25/100 q.i.d. 2. Increase Cogentin 1 mg t.i.d. 3. Continue with current management initiated by Dr. Hayes. 4. We will watch for recurrent seizure-like activities and video tape it. If consistent with seizure, we will pursue EEG. M Nikki MURPHY MD DR: [place] JOB#: [id number] / [id number]
[2017-08-06] MEDS: MIDODRINE 5 MG TABLET PO SCH (17:11)
--- NOTE | 2017-08-06 23:19 | PN ---
DATE: 08/06/2017 SUBJECTIVE: The patient is resting slightly propped up in bed, in no apparent distress. He continued to be unresponsive as this recurrent episode of what looked like myoclonic jerks, I do not think they are seizures, they are very short lasting. He is able to eat and drink; however, he does not follow command. He is mostly bed bound. He is very unsteady on his feet. PHYSICAL EXAMINATION: GENERAL: When I examined him, he looked pale. No jaundice, cyanosis, or thyromegaly. No jugular venous distension. No lower limb edema. VITAL SIGNS: His heart rate was 77, blood pressure was 101/60, temperature was 98.3, respiratory rate was 17 and oxygen saturation was 96%. HEAD, EYES, EARS, NOSE AND THROAT: Showed normocephalic, atraumatic. NECK: Supple. HEART: Showed normal first and second heart sounds with no gallop, rub or murmur. CHEST: Clear to auscultation. No crepitation or rhonchi. ABDOMEN: Distended, soft, nontender. No guarding or rigidity. No organomegaly. Hernial orifices intact. Bowel sounds normal. NEUROLOGIC: He is demented. All his cranial nerves are intact. He moves extremities spontaneously; however, he is very unsteady and his gait is mostly bed bound, has recurrent episodes of myoclonic jerks. His intake over the last 24 hours was 2900, output was 1250. LABORATORY DATA: This morning showed a serum sodium 140, potassium 3.5, chloride 106, bicarbonate 28, anion gap of 6, BUN 4, creatinine 0.7, estimated GFR was 113 mL per minute. His glucose was 85, calcium was 7.8. Total bilirubin, AST, ALT, alkaline phosphatase were normal. Total protein was 4.7, albumin was 1.8. White cell count was 9600, hemoglobin 11.3, hematocrit 32, MCV 96, and platelet count 120,000. So far, all his cultures are negative. ASSESSMENT: 1. History of possible Lewy body dementia presenting with dementia and Parkinson-like syndrome including tremors of both upper and lower extremities and increased masked face, increased rigidity of the neck and lower extremities. 2. Urinary tract infection. Urinalysis showed there is than 40 wbc's and marked leukocytosis, although so far all bacteria were negative. 3. Vitamin D deficiency. 4. Hyperlipidemia. 5. Severe depression. 6. He is hypotensive, likely due to either sepsis and/or autonomic neuropathy. We did start him on midodrine. He is clinically well hydrated. PLAN: My plan is to cut down his IV fluid to 75 mL per hour, increase his midodrine to 5 mg 3 times a day, continue with IV antibiotic for now and hopefully cut down his IV fluid further and he remained stable and the plan is for him to be discharged to [facility] on hospice care. CONCHITA ELLIS MD DR: NURYS/piter JOB#: [id number] / [id number]
[2017-08-07 05:13] VITALS: BP 121/68
[2017-08-07 05:54] LABS: HEMATOCRIT 35.1 % (39.0-53.0); HEMOGLOBIN 12.3 g/dL (13.0-17.5); RED BLOOD COUNT 3.65 x10^6/uL (4.30-5.70); RED CELL DISTRIBUTION WIDTH 13.4 % (11.5-14.5); WHITE BLOOD COUNT 6.9 x10^3/uL (4.0-11.0)
[2017-08-07 06:03] LABS: ALBUMIN 1.9 g/dL (3.4-5.0); ALBUMIN/GLOBULIN RATIO 0.6 (1.0-1.7); ALK PHOS 38 U/L (46-116); ANION GAP 5 (6-14); AST (SGOT) 13 U/L (15-37); BLOOD UREA NITROGEN 4 mg/dL (8-26); BUN/CREATININE RATIO 6 (6-20); CALCIUM 8.2 mg/dL (8.5-10.1); CARBON DIOXIDE 31 mmol/L (21-32); CHLORIDE 108 mmol/L (98-107); CREATININE 0.7 mg/dL (0.7-1.3); GFR 113.2; GLUCOSE 84 mg/dL (70-99); POTASSIUM 3.6 mmol/L (3.5-5.1); SODIUM 144 mmol/L (136-145); TOTAL BILIRUBIN 0.3 mg/dL (0.2-1.0)
[2017-08-07] MEDS: PIPERACILLIN/TAZOBACTAM 4.5 GM in IV NORMAL SALINE 50ML 50 ML IV SCH ×3 (06:14→17:12)
[2017-08-07 06:19] LABS: ALT (SGPT) < 6 U/L (16-63)
[2017-08-07] MEDS: MIDODRINE 5 MG TABLET PO SCH ×3 (06:19→17:13)
[2017-08-07] MEDS: BENZTROPINE MESYLATE 1 MG TABLET PO SCH ×3 (08:35→21:21)
[2017-08-07] MEDS: VALPROATE ACID 250 MG/5 ML ORAL SOLUTION PO SCH ×3 (08:35→21:20)
[2017-08-07] MEDS: ASPIRIN 81 MG TAB.CHEW PO SCH (08:36)
[2017-08-07] MEDS: DULoxetine HCL 60 MG CAPSULE.DR PO SCH (08:36)
[2017-08-07] MEDS: LACTOBACILLUS RHAMNOSUS GG 1 CAPSULE. PO SCH ×2 (08:36→21:20)
[2017-08-07] MEDS: CARBIDOPA/LEVODOPA 25/100MG TABLET PO SCH ×4 (08:36→21:21)
[2017-08-07 10:57] VITALS: BP 104/58
--- NOTE | 2017-08-07 13:14 | PN ---
DATE: 08/03/2017 SUBJECTIVE: The patient is resting, slightly propped up in bed, in no apparent distress. Nursing staff did not voice any concern and stated that he has uneventful night. PHYSICAL EXAMINATION: GENERAL: When I examined him, he looked pale, but no jaundice, cyanosis, or thyromegaly. No jugular venous distention. No limb edema. VITAL SIGNS: Heart rate was 63, blood pressure was 104/58, temperature was 97.9, respiratory rate was 18 and oxygen saturation was 93%. HEAD, EYES, EARS, NOSE AND THROAT: Normocephalic, atraumatic. NECK: Supple. HEART: Showed normal first and second heart sounds. No gallop, rub or murmur. CHEST: Clear to auscultation. No crepitation or rhonchi. ABDOMEN: Distended, soft, nontender. No guarding or rigidity. No organomegaly. All hernial orifice intact. Bowel sounds normal. NEUROLOGIC: He is demented with marked rigidity and tremors of both upper and lower extremities. His intake over the last 24 hours was 2500, output was 2800. LABORATORY DATA: Her lab work this morning showed a white cell count 6900, hemoglobin 12.3, hematocrit 35, MCV 96, and platelet count of 143,000. His chemistry showed a serum sodium 144, potassium 3.6, chloride 108, bicarbonate 31, anion gap of 5, BUN 4, creatinine 0.7, estimated GFR was 113 mL per minute. Her glucose was 84, calcium was 8.2. Total bilirubin, AST, ALT, alkaline phosphatase were normal. Total protein was 5, albumin was 1.9. So far, all his cultures are negative; however, he is responding to the IV antibiotic. ASSESSMENT: 1. History of possible Lewy body dementia presenting with dementia and Parkinson-like syndrome including tremors of both upper and lower extremities, increased rigidity of the neck and lower extremities and masked face. 2. Urinary tract infection with urinalysis showing more than 40 wbc's and marked leukocytosis, although so far all the cultures are negative. 3. Vitamin D deficiency. 4. Hyperlipidemia. 5. Severe depression. 6. Hypertension, much improved, felt to be a combination of sepsis as well as autonomic neuropathy. PLAN: To cut down his IV fluid to 50 mL per hour. I did increase his midodrine to 5 mg 3 times a day. Continue with IV antibiotic. Hopefully, we will discontinue his IV fluid and switch him to oral antibiotic and he can be discharged tomorrow to [facility] on hospice tomorrow. CONCHITA ELLIS MD DR: NURYS/piter JOB#: [id number] / [id number]
--- NOTE | 2017-08-07 13:15 | PN ---
DATE: SUBJECTIVE: The patient is drowsy, not awakable. He has not had any seizure-like activities in the last 24 hours. He continues to have intermittent tremor of the arms and legs. OBJECTIVE: GENERAL: A well-developed, well-nourished man in no acute distress. VITAL SIGNS: Blood pressure 104/58, respiratory rate 18, pulse is 63 with a temperature 97.9, oxygen saturation 93% on room air. HEENT: Normocephalic, atraumatic, otherwise unremarkable. NECK: Supple. Negative for carotid bruit, lymphadenopathy or thyromegaly. LUNGS: Clear to A and P. CARDIOVASCULAR: Regular rate and rhythm, normal S1, S2. There is no S3, S4, murmur. ABDOMEN: Soft. Bowel sounds positive. EXTREMITIES: Negative for cyanosis, clubbing, edema. NEUROLOGIC: Mental Status: The patient is drowsy, difficult to arouse. He does not follow any commands. The patient withholds his lower extremity to noxious stimuli. Deep tendon reflexes were symmetric and hypoactive with absent Achilles responses. Gait not tested. The patient has a normal pupil size and slow extraocular movements without nystagmus. There is no facial motor or sensory deficit. Rest of the neurologic examination is limited at this time. LABORATORY DATA: CBC revealed white blood cells of 6900; hemoglobin 12.3; hematocrit 35.1; platelet count 143,000. Chemistry reveals sodium of 144, potassium 3.6, chloride 108, CO2 of 31, BUN 4, creatinine 0.7, glucose is 84 and calcium is 8.2. IMPRESSION: 1. Dementia, probably of a Lewy body type, complicated with acute encephalopathy, probably due to underlying urosepsis. 2. Parkinsonism, with intermittent tremor and rigidity. 3. Multiple medical problems include sepsis, vitamin D deficiency, depressions and hyperlipidemia. RECOMMENDATION: Continue with the current management with Cogentin 1 mg t.i.d. and carbidopa/levodopa 25/100 q.i.d. M Nikki MURPHY MD DR: RICHA/piter JOB#: [id number] / [id number]
[2017-08-07 23:36] VITALS: BP 137/71
[2017-08-08] MEDS: PIPERACILLIN/TAZOBACTAM 4.5 GM in IV NORMAL SALINE 50ML 50 ML IV SCH ×2 (00:19→05:42)
[2017-08-08] MEDS: IV NORMAL SALINE 1,000ML 1,000 ML IV PRN (00:22)
[2017-08-08 05:02] VITALS: BP 137/76
[2017-08-08] MEDS: MIDODRINE 5 MG TABLET PO SCH (05:42)
[2017-08-08 06:04] LABS: CALCIUM 8.2 mg/dL (8.5-10.1); CREATININE 0.7 mg/dL (0.7-1.3); GFR 113.2; POTASSIUM 3.7 mmol/L (3.5-5.1)
[2017-08-08 06:12] VITALS: BP 112/70
[2017-08-08] MEDS: LACTOBACILLUS RHAMNOSUS GG 1 CAPSULE. PO SCH (09:48)
[2017-08-08] MEDS: DULoxetine HCL 60 MG CAPSULE.DR PO SCH (09:48)
[2017-08-08] MEDS: CARBIDOPA/LEVODOPA 25/100MG TABLET PO SCH (09:48)
[2017-08-08] MEDS: ASPIRIN 81 MG TAB.CHEW PO SCH (09:49)
[2017-08-08] MEDS: VALPROATE ACID 250 MG/5 ML ORAL SOLUTION PO SCH (09:49)
[2017-08-08] MEDS: BENZTROPINE MESYLATE 1 MG TABLET PO SCH (09:49)
[2017-08-08] MEDS: POLYVINYL ALCOHOL/POVIDONE/PF OPHTH SOLUTION DROPERETTE. OU PRN (09:49)
[2017-08-08 10:49] VITALS: BP 97/54
--- NOTE | 2017-08-08 12:38 | DS ---
DATE OF DISCHARGE: 08/08/2017 HOSPITAL COURSE: The patient is a 67-year-old male patient who was transferred from [facility] as he was found to be septic, hypotensive and was found to have urinary tract infection. He was started on IV Zosyn and initially was also started on Levophed and IV fluid. Subsequently, he was started on midodrine, initially 2.5 mg 3 times a day and eventually 5 mg 3 times a day and he did very well. His blood pressure remained stable. His white cell count has steadily improved from 17.4 to 6.9. We discontinued his IV fluid and all his lab works remained hemodynamically stable. Obviously has severe Lewy body dementia with marked rigidity and Parkinson syndrome and family has finally agreed to send him back to [facility] to continue with his oral antibiotic and to be on hospice care. Prior to discharging today, he looked well and was clearly in no apparent respiratory distress. He was pale, but no jaundice, cyanosis, or thyromegaly. No jugular venous distention. No limb edema. PHYSICAL EXAMINATION: VITAL SIGNS: His heart rate was 79, blood pressure was 97/54, temperature was 97.9, respiratory rate was 18 and oxygen saturation was 93% on room air. HEAD, EYES, EARS, NOSE AND THROAT: Showed normocephalic, atraumatic. NECK: Supple. HEART: Showed normal first and second heart sounds with no gallop, rub or murmur. CHEST: Clear to auscultation. No crepitation or rhonchi. ABDOMEN: Distended, soft, nontender. No guarding or rigidity. No organomegaly. Hernial orifice intact. Bowel sounds normal. NEUROLOGIC: He was demented with marked rigidity and tremors. He is mostly bed bound. His intake over the last 24 hours was 1900, output was 1550. LABORATORY DATA: As of this morning showed a white cell count of 6900, hemoglobin 12, hematocrit 35, MCV 96, and platelet count of 143,000. Her serum sodium was 142, potassium 3.7, chloride 107, bicarbonate 29, anion gap of 6, BUN 7, creatinine 0.7, estimated GFR was 113 mL per minute. Her glucose was 85, calcium was 8.2. Urinalysis showed that the urine white cell count was high, more than 40 with moderate amount of leukocyte esterase; however, all his cultures remained to be negative. DISCHARGE MEDICATIONS: The patient was discharged to [facility] to continue on following medications: Amoxicillin and clavulanic acid 875/125, one tablet twice a day for 5 more days, Tylenol 650 every 6 hours, aspirin 81 mg once a day, atorvastatin calcium 20 mg at bedtime, benztropine mesylate 1 mg twice a day, bisacodyl 10 mg suppositories as needed for constipation, carbidopa/levodopa 25/100 one tablet p.o. q.i.d., cholecalciferol vitamin D3 4000 units p.o. daily, Aricept 10 mg once a day, duloxetine 60 mg once a day, Flonase 1 spray to each nostril twice a day, ketotifen fumarate 2 drops to both eyes twice a day, lorazepam 0.5 mg b.i.d., Maalox 15 mL every 4 hours as needed, magnesium hydroxide, milk of magnesia 30 mL p.o. daily p.r.n. for constipation, Namenda 10 mg p.o. b.i.d., polyvinyl alcohol for Refresh classic eyedrops 1 drop to both eyes 4 times a day, quetiapine fumarate 12.5 mg twice a day, quetiapine fumarate 25 mg at bedtime, valproic acid 500 mg p.o. t.i.d. FINAL DISCHARGE DIAGNOSES: 1. History of possible Lewy body dementia presenting with dementia and Parkinson's like syndrome including tremors of both upper and lower extremities, marked rigidity of his neck and lower extremities and masked face. 2. Urinary tract infection, responding to IV Zosyn to finish the course treatment with oral Augmentin. 3. Vitamin D deficiency. 4. Hyperlipidemia. 5. Severe depression. 6. Hypotension for which he is now on midodrine 5 mg 3 times a day. CONCHITA ELLIS MD DR: NURYS/piter JOB#: [id number] / [id number]
== END 2017-08-08 11:00 | disposition hospice, home (50) | DRG 871 ==
LOC: ICU 20:00 → 1 SOUTH 08-06 18:33
PROVIDERS: ADMIT Family Medicine; ATTEND Family Medicine
DX: A41.9 Sepsis, unspecified organism (principal); E43 Unspecified severe protein-calorie malnutrition; G93.40 Encephalopathy, unspecified; I95.9 Hypotension, unspecified; G31.83 Neurocognitive disorder with Lewy bodies; F02.80 Dementia in other diseases classified elsewhere, unspecified severity, without behavioral disturbance, psychotic disturbance, mood disturbance, and anxiety; E83.42 Hypomagnesemia; G62.9 Polyneuropathy, unspecified; N39.0 Urinary tract infection, site not specified; E78.5 Hyperlipidemia, unspecified; G90.9 Disorder of the autonomic nervous system, unspecified; I10 Essential (primary) hypertension; F41.9 Anxiety disorder, unspecified; K59.00 Constipation, unspecified; F32.9 Major depressive disorder, single episode, unspecified; Z51.5 Encounter for palliative care; Z68.21 Body mass index [BMI] 21.0-21.9, adult; Z74.01 Bed confinement status
CPT/HCPCS: 36415; 71010; 80048; 80053; 81001; 83605; 83735; 85025; 85027; 87040; 87641; J1265; J2543; J3475; J7050; J7030